=== PATIENT | male | born 1960 | race Caucasian/White ===

== ENCOUNTER 2017-02-28 20:56 | Emergency (ER) | payer SELFPAY ==
[~2017-02-28] VITALS: Ht 170.2 cm; Wt 72.6 kg
[~2017-02-28 20:56] MED LIST: DEPAKOTE ER; DILANTIN; FOLIC ACID; KEPPRA; LEVOTHYROXINE; SULFA; ZONISAMIDE
[2017-02-28] MEDS ORDERED: LIDOCAINE 1% INJ 20 ML (XYLOCAINE) VIAL ONE (21:25)
--- NOTE | 2017-02-28 21:27 | ED EENT ---
History of Present Illness General Chief Complaint: Eye Problems Stated Complaint: PT HAD SEIZURE AND FELL LT EYE INJ Nursing Triage Note: PT BROUGHT TO ROOM BY WHEELCHAIR. GIRLFRIEND STATES THAT [place] AND HAS A SEIZURE AND FELL AND HIT HIS LEFT EYE ON HIS GLASSES. PT DOESN'T COMPLAIN OF ANY PAIN AT THIS TIME. Source: patient Exam Limitations: no limitations History of Present Illness Time seen by provider: 21:25 Initial Comments To ER with laceration to left upper eyebrow after a fall at home secondary to seizure. He was wearing a helmet at the time but his glasses cut the upper eyelid. Tetanus is up-to-date. No loss consciousness. Timing/Duration: abrupt Severity: moderate Location: eye (L) Associated Symptoms: denies symptoms Allergies and Home Medications Allergies Coded Allergies: No Known Drug Allergies (Unverified Allergy, Mild, 07/26/09) Home Medications [Depakote Er] , (Reported) [Dilantin] , (Reported) [Folic Acid] , (Reported) [Keppra] , (Reported) [Levothyroxine] , (Reported) [Zonisamide] , (Reported) Review of Systems Constitutional: see HPI Eyes: No Symptoms Reported Ears: No Symptoms Reported Nose: no symptoms reported Mouth: no symptoms reported Throat: no symptoms reported Respiratory: no symptoms reported Cardiovascular: no symptoms reported Musculoskeletal: no symptoms reported Skin: no symptoms reported Neurological: No Symptoms Reported Past Qbmwbdx-Zpgvtv-Aqmtte Hx Patient Social History Alcohol Use: Denies Use Recreational Drug Use: No Smoking Status: Never a Smoker 2nd Hand Smoke Exposure: No Recent Foreign Travel: No Contact w/Someone Who Travel: No Recent Infectious Disease Expo: No Recent Hopitalizations: No Immunizations Up To Date Tetanus Booster (TDap): Unknown Seasonal Allergies Seasonal Allergies: No Surgeries HX Surgeries: Yes ("COLOSTOMY" ) Respiratory Hx Respiratory Disorders: No Neurological Hx Neurological Disorders: Yes Neurological Disorders: Paralysis, Seizure Disorder Genitourinary Hx Genitourinary Disorders: No Gastrointestinal Hx Gastrointestinal Disorders: Yes (HAS COLOSTOMY) Musculoskeletal Hx Musculoskeletal Disorders: No Endocrine Hx Endocrine Disorders: No Endocrine Disorders: Hypothyroidsim HEENT HX ENT Disorders: No Cancer Hx Cancer: No Psychosocial Hx Psychiatric Problems: No Blood Transfusions Hx Blood Disorders: No Physical Exam Vital Signs Vital Sign - Last 12Hours 02/28/17 21:10 Temp 97.2 Pulse 78 Resp 18 B/P (MAP) 124/87 Pulse Ox 96 O2 Delivery Room Air General Appearance: WD/WN, no apparent distress Eyes: left eye other (1 semi-laceration to the lateral aspect of left upper eyelid. This will need sutured. There is no injury to the conjunctival surface of the eyelid. No subconjunctival hemorrhage or injury to the globe.), bilateral eye EOMI, bilateral eye PERRL Ears: bilateral ear TM normal, bilateral ear auricle normal, bilateral ear canal normal Mouth/Throat: normal mouth inspection, pharynx normal Neck: non-tender, full range of motion Respiratory: no respiratory distress, no accessory muscle use Neurologic/Psychiatric: alert, normal mood/affect, oriented x 3 Skin: normal color, warm/dry Laceration Repair : Wound Location: Face Wound Length (cm): 1 Wound's Depth, Shape: sub Q Wound Explored: clean Anesthesia: 1% Lidocaine Suture: Prolene Suture Size: 5-0 Number of Sutures: 4 Layer Closure?: 1 Number Deep Layer Sutures: 0 Progress Wound scrubbed with chlorhexidine/saline solution. Wound then anesthetized with 1.5 mL of 1 percent lidocaine without epinephrine. Wound then closed with 4 simple interrupted sutures size 5-0 Prolene. Progress/Results/Core Measures Results/Orders My Orders Orders - JOELLE MARTIN APRN Lidocaine 2% Pf 20 Ml (Xylocaine 2% Pf) (02/28/17 21:30) Lidocaine 1% Injection (Xylocaine 1% Inj (02/28/17 21:25) Vital Signs/I&O Vital Sign - Last 12Hours 02/28/17 21:10 Temp 97.2 Pulse 78 Resp 18 B/P (MAP) 124/87 Pulse Ox 96 O2 Delivery Room Air Blood Pressure Mean: 99 Departure Impression Impression: Primary Impression: Eyebrow laceration Disposition: 01 HOME, SELF-CARE Condition: Stable Departure-Patient Inst. Decision time for Depature: 21:27 Referrals: SHLOMO CESPEDES DO (PCP/Family) Primary Care Physician Patient Instructions: Laceration Repair With Stitches (DC) Add. Discharge Instructions: 1. Return to the emergency room to have the stitches removed in 5 days 2. Return to ER for any severe headache, loss consciousness or other concerns 3. Continue current seizure medications. All discharge instructions reviewed with patient and/or family. Voiced understanding. JOELLE MARTIN RESTAURANT HOSTESS Feb 28, 2017 21:27
[2017-02-28] MEDS ORDERED: LIDOCAINE PF 2% 20 ML (XYLOCAINE) AMP INJ ONE (21:30)
[2017-02-28 22:00] VITALS: BP 124/87
== END 2017-02-28 22:00 | disposition home or self-care (01) ==
LOC: EDUNIT# 20:56 → ER 20:58
DX: S01.112A Laceration without foreign body of left eyelid and periocular area, initial encounter (principal); G40.909 Epilepsy, unspecified, not intractable, without status epilepticus; E03.9 Hypothyroidism, unspecified; W05.0XXA Fall from non-moving wheelchair, initial encounter; Y92.830 Public park as the place of occurrence of the external cause; Y99.8 Other external cause status

== ENCOUNTER 2017-03-05 17:22 | Emergency (ER) | payer OTHER ==
[~2017-03-05] VITALS: Ht 170.2 cm; Wt 68.0 kg
[2017-03-05 17:32] VITALS: BP 110/78
== END 2017-03-05 17:43 | disposition home or self-care (01) ==
LOC: EDUNIT# 17:22 → ER 17:23
DX: S01.112D Laceration without foreign body of left eyelid and periocular area, subsequent encounter (principal); X58.XXXD Exposure to other specified factors, subsequent encounter

== ENCOUNTER → 2017-12-05 | Outpatient (CLI) | payer MEDICARE, OTHER ==
--- NOTE | 2017-12-05 18:18 | Diagnostic Imaging Report ---
INDICATION: Lateral swelling, bruising, pain. FINDINGS: There is no fracture, dislocation or acute-appearing articular incongruity. No soft tissue gas. No opaque foreign body. IMPRESSION: No acute-appearing abnormality. Dictated by: Dictated on workstation # [id number]
--- NOTE | 2017-12-05 18:21 | Diagnostic Imaging Report ---
EXAMINATION: Three views of the left foot. INDICATION: Lateral foot swelling. Toe bruising. FINDINGS: There is diffuse soft tissue swelling demonstrated about the foot predominantly involving the dorsal aspect of the foot. There is no evidence of malalignment. There is no evidence of an acute fracture. No aggressive bone destruction demonstrated. The joint spaces appear unremarkable. IMPRESSION: 1. Advanced soft tissue edema and soft tissue swelling about the dorsum of the foot without evidence of a suspicious bone lesion, dislocation, or fracture. Dictated by: Dictated on workstation # [id number]
== END ==
LOC: RAD 17:36
PROVIDERS: ATTEND Nurse Practitioner Family
DX: S90.122A Contusion of left lesser toe(s) without damage to nail, initial encounter (principal); S90.121A Contusion of right lesser toe(s) without damage to nail, initial encounter
CPT/HCPCS: 73630

== ENCOUNTER → 2018-10-29 | Emergency (ER) | payer MEDICARE ==
[~2018-10-29] VITALS: Ht 180.3 cm; Wt 83.9 kg
[~2018-10-29] MED LIST changes: +CEPH-507 PO; +LIDOCAINE 1% INJ 20 ML 20 ML VIAL INJ ONE; +LIDOCAINE 1% INJ 20 ML 20 ML VIAL ONE; +TETANUS,DIPTH,PERTUSS P/F (BOOSTRIX) 0.5 ML VIAL IM ONE
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
[2018-10-29 15:43] VITALS: BP 134/98
--- OUTSIDE RECORDS SUMMARY | 2018-10-29 15:53 | XMS REPORT | Continuity of Care Document ---
Author Author [facility] Organization [facility] Address Unknown Phone Unavailable Care Team Providers Care Safety Teacher Name Role Phone SHLOMO CESPEDES DO PP Insurance Providers Payer Name Policy Number Subscriber Name Relationship [employer] [id number] Albaro Parsons 01 Self / Same As Patient Work Comp [id number] Albaro Parsons Self / Same As Patient Advance Directives Directive Response Recorded Date Advance Directives N 03/21/13 12:32pm Health Care Power of Net Developer Programmer N 03/21/13 12:32pm Organ Donor N 03/21/13 12:32pm Problems No Known Problems or Medical conditions. Social History History Response Recorded Date/Time Alcohol Use Denies Use 03/21/13 12:32pm Recreational Drug Use N 03/21/13 12:32pm Allergies, Adverse Reactions, Alerts Allergen Type Severity Reaction Last Updated No Known Drug Allergies Allergy Mild 07/26/09 Medications Medication Dose Units Route Sig Qty Days [Levothyroxine] [Folic Acid] [Zonisamide] [Keppra] [Depakote Er] [Dilantin] [Sulfa] Response Recorded Date/Time Status not known Unknown Results No Known Relevant Diagnostic Tests, Laboratory Data and/or Discharge Summary. Procedures Procedure Code Date COLONOSCOPY AND BIOPSY 58369 10/03/05 Encounters Encounter Location Date/Time Departed Emergency Room [facility] 12:02pm Registered Emergency Room [facility] 07/19/09 2:36pm
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
--- NOTE | 2018-10-29 17:11 | Diagnostic Imaging Report ---
PROCEDURE: CT head and maxillofacial without contrast. TECHNIQUE: Multiple contiguous axial images were obtained through the head and facial bones without the use of intravenous contrast. Auto Exposure Controls were utilized during the CT exam to meet ALARA standards for radiation dose reduction. INDICATION: Fall, head injury, laceration above the left eye. COMPARISON: 07/19/2009 FINDINGS: CT HEAD: The ventricles and cortical sulci are mildly prominent, likely due to generalized parenchymal volume loss. There is encephalomalacia in the left temporal and frontal lobes which appear stable since 2008, with associated ex vacuo dilatation of the left ventricle. No significant midline shift is seen. No acute intracranial hemorrhage is seen. There is no CT evidence of acute territorial ischemia. The calvarium appears intact. Postcraniotomy changes are noted. CT FACE: The pterygoid plates are intact. The mandible is intact. The zygomatic arches are intact. There is no fluid in the maxillary sinuses. The paranasal sinuses are clear throughout. The globes are intact. No post septal edema is seen. There is mild soft tissue edema and a laceration in the left supraorbital region. There is mild irregularity at the anterior aspect of the nasal bones, which appears to be chronic, although there is overlying soft tissue edema. No radiopaque foreign body is seen. IMPRESSION: 1. No acute intracranial hemorrhage or calvarium fracture. 2. Mild soft tissue edema and laceration in the left supraorbital region. 3. Mild irregularity at the anterior nasal bones, thought to be from remote trauma. No definitively acute facial fractures are seen. Dictated by: Dictated on workstation # [id number]
== END | disposition home or self-care (01) ==
LOC: EDUNIT# 15:31 → ER 15:32
DX: S01.81XA Laceration without foreign body of other part of head, initial encounter (principal); G40.909 Epilepsy, unspecified, not intractable, without status epilepticus; E03.9 Hypothyroidism, unspecified; R40.2142 Coma scale, eyes open, spontaneous, at arrival to emergency department; R40.2252 Coma scale, best verbal response, oriented, at arrival to emergency department; R40.2362 Coma scale, best motor response, obeys commands, at arrival to emergency department; W01.198A Fall on same level from slipping, tripping and stumbling with subsequent striking against other object, initial encounter
CPT/HCPCS: 70450; 70486; 90471; 90715; 99282

== ENCOUNTER 2020-06-25 21:26 | Emergency (ER) | payer MEDICARE ==
[~2020-06-25] VITALS: Ht 177.8 cm; Wt 74.9 kg
[~2020-06-25 21:26] MED LIST changes: -LIDOCAINE 1% INJ 20 ML 20 ML VIAL INJ ONE; -LIDOCAINE 1% INJ 20 ML 20 ML VIAL ONE; -TETANUS,DIPTH,PERTUSS P/F (BOOSTRIX) 0.5 ML VIAL IM ONE
[2020-06-25] MEDS ORDERED: LACTATED RINGERS 1,000 ML IV ONE (22:20)
[2020-06-25] MEDS ORDERED: ACETAMINOPHEN 500 MG TAB (TYLENOL) PO ONE (22:30)
[2020-06-25 22:35] LABS: EOSINOPHILS % (AUTO) 0 % (0-10); HEMATOCRIT 50 % (40-54); MEAN CORPUSCULAR VOLUME 91 fL (80-99); MONOCYTES # (AUTO) 0.9 10^3/uL (0.0-1.0)
[2020-06-25 22:37] LABS: BASOPHILS % (AUTO) 0 % (0-10); HEMOGLOBIN 17.6 g/dL (13.3-17.7); LYMPHOCYTES # (AUTO) 1.4 10^3/uL (1.0-4.0); LYMPHOCYTES % (AUTO) 15 % (12-44); MEAN CORPUSCULAR HEMOGLOBIN 32 pg (25-34); MEAN CORPUSCULAR HGB CONC 35 g/dL (32-36); MEAN PLATELET VOLUME 9.6 fL (9.0-12.2); MONOCYTES % (AUTO) 10 % (0-12); NEUTROPHILS # (AUTO) 6.8 10^3/uL (1.8-7.8); NEUTROPHILS % (AUTO) 74 % (42-75); PLATELET COUNT 120 10^3/uL (130-400); WHITE BLOOD COUNT 9.1 10^3/uL (4.3-11.0)
[2020-06-25 22:43] LABS: ALBUMIN 4.2 GM/DL (3.2-4.5); POTASSIUM 3.8 MMOL/L (3.6-5.0)
[2020-06-25 22:45] LABS: CALCIUM 8.9 MG/DL (8.5-10.1)
[2020-06-25 22:46] LABS: TOTAL PROTEIN 8.1 GM/DL (6.4-8.2)
[2020-06-25 22:48] LABS: BILIRUBIN,TOTAL 0.6 MG/DL (0.1-1.0)
[2020-06-25 22:49] LABS: CREATININE SERUM 1.27 MG/DL (0.60-1.30)
[2020-06-25 22:52] LABS: FIBRIN DEGRADATION PRODUCTS 1.73 UG/ML (0.00-0.49); PROTHROMBIN TIME PATIENT 13.2 SEC (12.2-14.7)
[2020-06-26] MEDS ORDERED: NS 100 ML (IVPB) BAG IV ONE
[2020-06-26] MEDS ORDERED: IOHEXOL 350 MG/ML 100 ML (OMNIPAQUE 350) VIAL IV ONE
[2020-06-26] MEDS ORDERED: HOLD METFORMIN - RECEIVED CONTRAST 20 ML VIAL IV SCH
[2020-06-26] MEDS ORDERED: AZITHROMYCIN 250 MG TAB (ZITHROMAX) PO ONE (02:15)
[2020-06-26] MEDS ORDERED: cefTRIAXone FOR IV USE 1,000 MG in WATER (STERILE) FOR INJECTION 10 ML IV ONE (02:15)
[2020-06-26] MEDS ORDERED: AZIT250T12 PO (02:15)
--- NOTE | 2020-06-26 02:15 | ED General ---
General Chief Complaint: Fever-Adult/Adol Stated Complaint: COUGH/FEVER/SOA Nursing Triage Note: PT TO ROOM 07 VIA W/C WITH C/O FEVER AND SOA. Nursing Sepsis Screen: Possible Severe Sepsis Risk Source of Information: Patient, Caregiver Exam Limitations: No Limitations History of Present Illness Date Seen by Provider: Jun 26, 2020 Time Seen by Provider: 22:05 Initial Comments This 60-year-old gentleman with special needs and intellectual disability presents to the emergency room with complaints of fever and shortness of breath. He denies any vomiting or diarrhea. He is alert and oriented. He is tachycardic but oxygen saturations are in the upper 90s on room air. He is happy and joking with staff. Fever started just today. He was brought to the emergency room by his care provider. He lives with his parents and has a employed caregiver. Allergies and Home Medications Allergies Coded Allergies: No Known Drug Allergies (Unverified , 07/26/09) Home Medications Azithromycin 250 Mg Tablet, 250 MG PO DAILY Prescribed by: LOAN CAMILO on 06/26/20 0215 Cephalexin 500 Mg Capsule, 500 MG PO TID Prescribed by: JOELLE MARTIN on 10/29/18 1714 Patient Home Medication List Home Medication List Reviewed: Yes Review of Systems Review of Systems Constitutional: see HPI EENTM: no symptoms reported Respiratory: see HPI Cardiovascular: see HPI Gastrointestinal: no symptoms reported Genitourinary: no symptoms reported Musculoskeletal: no symptoms reported Skin: no symptoms reported Psychiatric/Neurological: No Symptoms Reported Hematologic/Lymphatic: No Symptoms Reported Immunological/Allergic: no symptoms reported Past Azkjuvu-Dgfgcl-Ritzqi Hx Past Med/Social Hx: Reviewed Nursing Past Med/Soc Hx Patient Social History Alcohol Use: Denies Use Recreational Drug Use: No Smoking Status: Never a Smoker 2nd Hand Smoke Exposure: No Recent Foreign Travel: No Contact w/Someone Who Travel: No Recent Infectious Disease Expo: No Recent Hopitalizations: No Physical Abuse: No Sexual Abuse: No Mistreated: No Fear: No Immunizations Up To Date Tetanus Booster (TDap): Unknown Seasonal Allergies Seasonal Allergies: No Past Medical History Surgeries: Yes (OSTOMY BAG PLACED 2011) Respiratory: No Cardiac: No Neurological: Yes (Intellectual disability) Paralysis, Seizure Disorder Genitourinary: No Gastrointestinal: Yes (HAS OSTOMY BAG) Musculoskeletal: No Endocrine: Yes Hypothyroidsim HEENT: No Cancer: No Psychosocial: No Integumentary: No Blood Disorders: No Physical Exam-Suspected Sepsis Physical Exam Vital Signs Vital Signs - First Documented 06/25/20 06/26/20 21:52 02:45 Temp 39.3 Pulse 116 Resp 19 B/P (MAP) 98/75 (83) Pulse Ox 97 O2 Delivery Room Air Capillary Refill : Less Than 3 Seconds Blood Pressure Mean: 83 Height, Weight, BMI Height: 5'11.00" Weight: 185lbs. oz. 83.979643qt; 23.00 BMI Method:Estimated General Appearance: No Apparent Distress, WD/WN HEENT: PERRL/EOMI, Normal ENT Inspection, Pharynx Normal Neck: Normal Inspection Respiratory: Lungs Clear, Normal Breath Sounds, No Accessory Muscle Use Cardiovascular: No Edema, No Murmur, Tachycardia Gastrointestinal: Normal Bowel Sounds, Non Tender, Soft Extremity: Normal Inspection, Non Tender, No Pedal Edema Neurologic/Psychiatric: Alert, Oriented x3, No Motor/Sensory Deficits, Normal Mood/Affect, manager local II-XII Norm as Tested Skin: normal color, warm/dry Focused Exam Lactate Level 06/25/20 22:00: Lactic Acid Level 1.81 Procedures/Interventions Suture Size: 5-0 Progress/Results/Core Measures Suspected Sepsis Recent Fever Within 48 Hours: Yes Infection Criteria Present: Suspected New Infection New/Unexplained Altered Menta: No Sepsis Screen: Possible Severe Sepsis Risk SIRS Temperature: Pulse: 116 Respiratory Rate: 19 Laboratory Tests 06/25/20 22:00: White Blood Count 9.1 Blood Pressure 98 /75 Mean: 83 06/25/20 22:00: Lactic Acid Level 1.81 Laboratory Tests 06/25/20 22:00: Creatinine 1.27, INR Comment 1.0, Platelet Count 120L, Total Bilirubin 0.6 Results/Orders Lab Results Laboratory Tests Test 06/25/20 22:00 06/25/20 22:20 Range/Units White Blood Count 9.1 4.3-11.0 10^3/uL Red Blood Count 5.52 4.30-5.52 10^6/uL Hemoglobin 17.6 13.3-17.7 g/dL Hematocrit 50 40-54 % Mean Corpuscular Volume 91 80-99 fL Mean Corpuscular Hemoglobin 32 25-34 pg Mean Corpuscular Hemoglobin Concent 35 32-36 g/dL Red Cell Distribution Width 11.1 10.0-14.5 % Platelet Count 120 L 130-400 10^3/uL Mean Platelet Volume 9.6 9.0-12.2 fL Immature Granulocyte % (Auto) 0 % Neutrophils (%) (Auto) 74 42-75 % Lymphocytes (%) (Auto) 15 12-44 % Monocytes (%) (Auto) 10 0-12 % Eosinophils (%) (Auto) 0 0-10 % Basophils (%) (Auto) 0 0-10 % Neutrophils # (Auto) 6.8 1.8-7.8 10^3/uL Lymphocytes # (Auto) 1.4 1.0-4.0 10^3/uL Monocytes # (Auto) 0.9 0.0-1.0 10^3/uL Eosinophils # (Auto) 0.0 0.0-0.3 10^3/uL Basophils # (Auto) 0.0 0.0-0.1 10^3/uL Immature Granulocyte # (Auto) 0.0 0.0-0.1 10^3/uL Prothrombin Time 13.2 12.2-14.7 SEC INR Comment 1.0 0.8-1.4 Activated Partial Thromboplast Time 32 24-35 SEC D-Dimer 1.73 H 0.00-0.49 UG/ML Sodium Level 143 135-145 MMOL/L Potassium Level 3.8 3.6-5.0 MMOL/L Chloride Level 105 98-107 MMOL/L Carbon Dioxide Level 23 21-32 MMOL/L Anion Gap 15 H 5-14 MMOL/L Blood Urea Nitrogen 20 H 7-18 MG/DL Creatinine 1.27 0.60-1.30 MG/DL Estimat Glomerular Filtration Rate 58 BUN/Creatinine Ratio 16 Glucose Level 98 70-105 MG/DL Lactic Acid Level 1.81 0.50-2.00 MMOL/L Calcium Level 8.9 8.5-10.1 MG/DL Corrected Calcium 8.7 8.5-10.1 MG/DL Total Bilirubin 0.6 0.1-1.0 MG/DL Aspartate Amino Transf (AST/SGOT) 42 H 5-34 U/L Alanine Aminotransferase (ALT/SGPT) 40 0-55 U/L Alkaline Phosphatase 114 40-136 U/L Lactate Dehydrogenase 272 H 125-220 U/L C-Reactive Protein High Sensitivity 15.31 H 0.00-0.50 MG/DL Total Protein 8.1 6.4-8.2 GM/DL Albumin 4.2 3.2-4.5 GM/DL Procalcitonin 0.07 <0.10 NG/ML Coronavirus 2019 (NII) Positive H Negative Micro Results Microbiology 06/25/20 Influenza Types A,B Antigen (JERZY) - Final, Complete My Orders Orders - LOAN HUA MD Ed Iv/Invasive Line Start (06/25/20 22:20) Lactated Ringers (Lr 1000 Ml Iv Solution (06/25/20 22:20) Acetaminophen Tablet (Tylenol Tablet) (06/25/20 22:30) Cbc With Automated Diff (06/25/20 22:22) Comprehensive Metabolic Panel (06/25/20 22:22) Blood Culture (06/25/20 22:22) Protime With Inr (06/25/20 22:22) Partial Thromboplastin Time (06/25/20 22:22) Chest 1 View, Ap/Pa Only (06/25/20 22:22) Ed Iv/Invasive Line Start (06/25/20 22:22) Vital Signs Adult Sepsis Patie Q15M (06/25/20 22:22) O2 (06/25/20 22:22) Remove Rings In Anticipation O (06/25/20 22:22) Lactic Acid Analyzer (06/25/20 22:22) Influenza A And B Antigens (06/25/20 22:22) Fibrin Degradation Products (06/25/20 22:22) Procalcitonin (Pct) (06/25/20 22:22) Hs C Reactive Protein (06/25/20 22:22) LDH (06/25/20 22:22) Covid 19 Inhouse Test (06/25/20 22:22) Iohexol Injection (Omnipaque 350 Mg/Ml 1 (06/26/20 00:00) Received Contrast (Hold Metformin- Contr (06/26/20 00:00) Ns (Ivpb) (Sodium Chloride 0.9% Ivpb Bag (06/26/20 00:00) Ct Angio Chest W (06/26/20 00:01) Ceftriaxone For Iv Use (Rocephin For I (06/26/20 02:15) Azithromycin Tablet (Zithromax Tablet) (06/26/20 02:15) Medications Given in ED Current Medications Medications Dose Ordered Sig/José Route Start Time Stop Time Status Last Admin Dose Admin Acetaminophen 1,000 mg ONCE ONCE PO 06/25/20 22:30 06/25/20 22:31 DC 06/25/20 22:25 1,000 MG Azithromycin 500 mg ONCE ONCE PO 06/26/20 02:15 06/26/20 02:16 DC 06/26/20 02:19 500 MG Ceftriaxone Sodium 1000 mg/ Sterile Water 10 ml @ 200 mls/hr ONCE ONCE IV 06/26/20 02:15 06/26/20 02:17 DC 06/26/20 02:19 200 MLS/HR Lactated Ringer's 1,000 ml @ 0 mls/hr Q0M ONCE IV 06/25/20 22:20 06/25/20 22:21 DC 06/25/20 22:24 999 MLS/HR Vital Signs/I&O 06/25/20 06/25/20 06/26/20 21:52 22:25 02:45 Temp 39.3 39.8 Pulse 116 76 Resp 19 17 B/P (MAP) 98/75 (83) 132/77 Pulse Ox 97 O2 Delivery Room Air Room Air 06/26/20 00:00 Intake Total 1000 ml Balance 1000 ml Capillary Refill : Less Than 3 Seconds Blood Pressure Mean: 83 Progress Note : Progress Note COVID-19 screen was positive. Influenza was negative. He received a liter of IV fluid and Tylenol. Oxygen saturations stayed in the upper 90s on room air. Patient was not in respiratory distress. Due to the patchy areas of infiltrate that could be related to superimposed pneumonia, Rocephin and azithromycin were administered. I discussed the situation with his care provider. Patient does not meet inpatient criteria. She will manage his care at home. Diagnostic Imaging Diagonstic Imaging: Xray Plain Films/CT/US/NM/MRI: chest Comments Chest x-ray viewed by me. Report not yet available. No acute abnormality appreciated. Diagonstic Imaging: CT Plain Films/CT/US/NM/MRI: chest Comments [facility] report reviewed. No pulmonary emboli noted. Patchy areas of infiltrate noted. Incidental findings such as hernia and cholelithiasis noted. Departure Impression Primary Impression: COVID-19 Additional Impression: Pneumonia Qualified Codes: J18.9 - Pneumonia, unspecified organism Disposition: 01 HOME, SELF-CARE Condition: Stable Departure-Patient Inst. Decision time for Depature: 02:13 Referrals: SHLOMO CESPEDES DO (PCP/Family) Primary Care Physician Patient Instructions: Coronavirus Disease 2019 (COVID-19) (DC), Pneumonia, Adult (DC) Add. Discharge Instructions: Remain in quarantine until released by the health department. Isolate from other household members who have not had or recovered from COVID-19. Encourage plenty of clear liquids. Tylenol and ibuprofen may be used for pain and fever. Complete antibiotics as prescribed. It is difficult to determine from the chest imaging if there is Covid alone or if pneumonia also exists. Therefore it is important to complete the antibiotics. Call or return to care if you have worsening symptoms or other concerns. All discharge instructions reviewed with patient and/or family. Voiced understanding. Scripts Azithromycin (Azithromycin) 250 Mg Tablet 250 MG PO DAILY, #4 TAB 0 Refills Prov: LOAN HUA MD 06/26/20 Copy Copies To 1: SHLOMO CESPEDES JOSHUA T MD Jun 26, 2020 02:15
[2020-06-26 02:45] VITALS: BP 132/77
--- NOTE | 2020-06-26 06:43 | Diagnostic Imaging Report ---
PROCEDURE: CT angiography of the chest with contrast. TECHNIQUE: Multiple contiguous axial images were obtained through the chest after uneventful bolus administration of intravenous contrast. 3D reconstructed CTA MIP acquisitions were also performed. Auto Exposure Controls were utilized during the CT exam to meet ALARA standards for radiation dose reduction. INDICATION: Sepsis. Shortness of breath. COVID positive. COMPARISON: Chest radiograph, 06/25/2020. FINDINGS: No pulmonary emboli. No thoracic aortic aneurysm or dissection. Normal heart size. No pericardial effusion. Prominent mediastinal lymph nodes measuring up to 1.0 cm. Moderate multifocal airspace opacities in the left lung. No pleural effusion or pneumothorax. No acute osseous findings. Anterior wedging of the T4 and T5 vertebral bodies appears chronic. Cholelithiasis. Partially visualized right anterior abdominal wall hernia containing loops of small bowel. IMPRESSION: 1. No pulmonary emboli. 2. Multifocal airspace opacities in the left lung compatible with reported COVID diagnosis. Borderline mediastinal lymphadenopathy is likely reactive. 3. Cholelithiasis. 4. Partially visualized right anterior abdominal wall hernia containing loops of small bowel. Dictated by: Dictated on workstation # [id number]
--- NOTE | 2020-06-26 07:28 | Diagnostic Imaging Report ---
INDICATION: Sepsis. COMPARISON: No prior examinations are available for comparison. FINDINGS: The heart size, mediastinal configuration, and pulmonary vascularity are within normal limits. There is no pleural effusion, pneumothorax, or pneumonia. The osseous structures are unremarkable. IMPRESSION: No acute cardiopulmonary abnormality. Dictated by: Dictated on workstation # [id number]
== END 2020-06-26 02:45 | disposition home or self-care (01) ==
LOC: EDUNIT# 21:26 → ER 21:29
DX: U07.1 COVID-19 (principal); J18.9 Pneumonia, unspecified organism
CPT/HCPCS: 71045; 71275; 80053; 83605; 83615; 84145; 85025; 85379; 85610; 85730; 86141; 87040; 87804; 99284; U0002; 36415; 87635

== ENCOUNTER 2020-06-27 17:50 | Inpatient (IN) | payer MEDICARE ==
[~2020-06-27] VITALS: Ht 170 cm; Wt 89.0 kg
[~2020-06-27 17:50] MED LIST changes: +AZIT250T12 PO
[2020-06-27] MEDS ORDERED: LACTATED RINGERS 1,000 ML IV ONE ×2 (18:41→22:49)
[2020-06-27] MEDS ORDERED: ACETAMINOPHEN 500 MG TAB (TYLENOL) ONE (18:45)
[2020-06-27 18:54] LABS: BASOPHILS % (AUTO) 0 % (0-10); EOSINOPHILS % (AUTO) 0 % (0-10); HEMOGLOBIN 17.1 g/dL (13.3-17.7)
[2020-06-27 18:56] LABS: HEMATOCRIT 48 % (40-54); LYMPHOCYTES # (AUTO) 0.9 10^3/uL (1.0-4.0); LYMPHOCYTES % (AUTO) 10 % (12-44); MEAN CORPUSCULAR HEMOGLOBIN 32 pg (25-34); MEAN CORPUSCULAR HGB CONC 36 g/dL (32-36); MEAN CORPUSCULAR VOLUME 89 fL (80-99); MEAN PLATELET VOLUME 9.5 fL (9.0-12.2); MONOCYTES # (AUTO) 1.2 10^3/uL (0.0-1.0); MONOCYTES % (AUTO) 13 % (0-12); NEUTROPHILS # (AUTO) 6.7 10^3/uL (1.8-7.8); NEUTROPHILS % (AUTO) 76 % (42-75); PLATELET COUNT 147 10^3/uL (130-400); WHITE BLOOD COUNT 8.9 10^3/uL (4.3-11.0)
[2020-06-27] MEDS ORDERED: ACETAMINOPHEN 500 MG TAB (TYLENOL) PO ONE (19:00)
[2020-06-27 19:03] LABS: ALBUMIN 4.1 GM/DL (3.2-4.5); POTASSIUM 4.3 MMOL/L (3.6-5.0)
[2020-06-27 19:04] LABS: CALCIUM 8.9 MG/DL (8.5-10.1)
[2020-06-27 19:07] LABS: BILIRUBIN,TOTAL 0.6 MG/DL (0.1-1.0)
[2020-06-27 19:09] LABS: CREATININE SERUM 1.29 MG/DL (0.60-1.30)
--- NOTE | 2020-06-27 19:13 | ED General ---
General Chief Complaint: Respiratory Problems Stated Complaint: SOB, CONFUSION,COVID19+,PNA Nursing Triage Note: Assisted pt via ED w/c from POV with c/o altered mental status et resp. distress. Caregiver noted to be hysterical stating, "he ripped off his clothes et hasn't made any sense!" Pt seen in this ER on 06/25/20 et noted to be COVID-19 +. Initial SPO2 84% via RA with labored audible breath sounds. 15L oxymask applied. Initial axillary temp 103.8. Pt alert to self et situation. Nursing Sepsis Screen: Possible Severe Sepsis Risk Source of Information: Patient, Family, Old Records Exam Limitations: No Limitations History of Present Illness Date Seen by Provider: Jun 27, 2020 Time Seen by Provider: 18:01 Initial Comments This 60-year-old gentleman with special needs including intellectual disability and seizure disorder is brought to the emergency room by his caregiver with worsening symptoms of COVID-19. He was seen on the when he was diagnosed. He was stable at that time. He was started on antibiotics for possible pneumonia coinfection based on x-ray findings. Today his caregiver is hysterical stating he has become very confused, ripping off his clothes, and not making any sense. He was found to be hypoxic with an oxygen saturation of 84% on room air. His caregiver is Dina, his neighbor. Her phone number is [phone]. He has elderly parents who are his legal guardians. His father is Hero Parsons, and his phone number is [phone]. I have not been able to speak with the caregiver directly but I did speak with his father. Patient is alert and seems near his cognitive baseline based on my interaction with him 2 days ago. He does appear a little short of breath. He is febrile at present with a temperature of 103.8. I discussed CODE STATUS with his father. He is agreeable to a short time on a ventilator but requests no cardiac code. Allergies and Home Medications Allergies Coded Allergies: No Known Drug Allergies (Unverified , 07/26/09) Home Medications Azithromycin 250 Mg Tablet, 250 MG PO DAILY Prescribed by: LOAN CAMILO on 06/26/20 0215 Cephalexin 500 Mg Capsule, 500 MG PO TID Prescribed by: JOELLE MARTIN on 10/29/18 4332 Patient Home Medication List Home Medication List Reviewed: Yes Review of Systems Review of Systems Constitutional: see HPI EENTM: no symptoms reported Respiratory: see HPI Cardiovascular: no symptoms reported Gastrointestinal: no symptoms reported Musculoskeletal: no symptoms reported Skin: no symptoms reported Psychiatric/Neurological: See HPI Hematologic/Lymphatic: No Symptoms Reported Immunological/Allergic: no symptoms reported Past Mdilysg-Wnllzw-Kxqqrl Hx Past Med/Social Hx: Reviewed Nursing Past Med/Soc Hx Patient Social History Alcohol Use: Denies Use Recreational Drug Use: No Smoking Status: Never a Smoker 2nd Hand Smoke Exposure: No Recent Foreign Travel: No Contact w/Someone Who Travel: No Recent Infectious Disease Expo: No Recent Hopitalizations: No Physical Abuse: No Sexual Abuse: No Immunizations Up To Date Tetanus Booster (TDap): Unknown Seasonal Allergies Seasonal Allergies: No Past Medical History Surgeries: Yes (OSTOMY BAG PLACED 2011) Bowel Surgery Respiratory: No Cardiac: No Neurological: Yes (Intellectual disability) Paralysis, Seizure Disorder Genitourinary: No Gastrointestinal: Yes (HAS OSTOMY BAG) Musculoskeletal: No Endocrine: Yes Hypothyroidsim HEENT: No Cancer: No Psychosocial: No Integumentary: No Blood Disorders: No Physical Exam-Suspected Sepsis Physical Exam Vital Signs Vital Signs - First Documented 06/27/20 18:20 Temp 39.9 Pulse 125 Resp 35 B/P (MAP) 109/79 (89) Pulse Ox 100 O2 Delivery OxyMask O2 Flow Rate 15.00 Capillary Refill : Less Than 3 Seconds Blood Pressure Mean: 89 Height, Weight, BMI Height: 5'11.00" Weight: 185lbs. oz. 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 He is alert to person and place. He is conversational.) Skin: normal color, warm/dry Focused Exam Lactate Level 06/27/20 18:40: Lactic Acid Level 2.29*H 06/27/20 21:20: Lactic Acid Level 2.33*H 06/27/20 23:15: Lactic Acid Level 1.20 Lactic Acid Level Procedures/Interventions Suture Size: 5-0 Progress/Results/Core Measures Suspected Sepsis Recent Fever Within 48 Hours: Yes Infection Criteria Present: Documented Infection New/Unexplained Altered Menta: Yes Sepsis Screen: Possible Severe Sepsis Risk SIRS Temperature: Pulse: 125 Respiratory Rate: 35 Laboratory Tests 06/27/20 18:40: White Blood Count 8.9 Blood Pressure 109 /79 Mean: 89 06/27/20 18:40: Lactic Acid Level 2.29*H 06/27/20 21:20: Lactic Acid Level 2.33*H 06/27/20 23:15: Lactic Acid Level 1.20 Laboratory Tests 06/27/20 18:40: Creatinine 1.29, INR Comment 1.0, Platelet Count 147, Total Bilirubin 0.6 Results/Orders Lab Results Laboratory Tests Test 06/27/20 18:40 06/27/20 19:10 06/27/20 21:20 06/27/20 23:15 Range/Units White Blood Count 8.9 4.3-11.0 10^3/uL Red Blood Count 5.34 4.30-5.52 10^6/uL Hemoglobin 17.1 13.3-17.7 g/dL Hematocrit 48 40-54 % Mean Corpuscular Volume 89 80-99 fL Mean Corpuscular Hemoglobin 32 25-34 pg Mean Corpuscular Hemoglobin Concent 36 32-36 g/dL Red Cell Distribution Width 10.8 10.0-14.5 % Platelet Count 147 130-400 10^3/uL Mean Platelet Volume 9.5 9.0-12.2 fL Immature Granulocyte % (Auto) 0 % Neutrophils (%) (Auto) 76 H 42-75 % Lymphocytes (%) (Auto) 10 L 12-44 % Monocytes (%) (Auto) 13 H 0-12 % Eosinophils (%) (Auto) 0 0-10 % Basophils (%) (Auto) 0 0-10 % Neutrophils # (Auto) 6.7 1.8-7.8 10^3/uL Lymphocytes # (Auto) 0.9 L 1.0-4.0 10^3/uL Monocytes # (Auto) 1.2 H 0.0-1.0 10^3/uL Eosinophils # (Auto) 0.0 0.0-0.3 10^3/uL Basophils # (Auto) 0.0 0.0-0.1 10^3/uL Immature Granulocyte # (Auto) 0.0 0.0-0.1 10^3/uL Prothrombin Time 14.0 12.2-14.7 SEC INR Comment 1.0 0.8-1.4 Activated Partial Thromboplast Time 35 24-35 SEC Sodium Level 136 135-145 MMOL/L Potassium Level 4.3 3.6-5.0 MMOL/L Chloride Level 101 98-107 MMOL/L Carbon Dioxide Level 21 21-32 MMOL/L Anion Gap 14 5-14 MMOL/L Blood Urea Nitrogen 17 7-18 MG/DL Creatinine 1.29 0.60-1.30 MG/DL Estimat Glomerular Filtration Rate 57 BUN/Creatinine Ratio 13 Glucose Level 112 H 70-105 MG/DL Lactic Acid Level 2.29 *H 2.33 *H 1.20 0.50-2.00 MMOL/L Calcium Level 8.9 8.5-10.1 MG/DL Corrected Calcium 8.8 8.5-10.1 MG/DL Total Bilirubin 0.6 0.1-1.0 MG/DL Aspartate Amino Transf (AST/SGOT) 56 H 5-34 U/L Alanine Aminotransferase (ALT/SGPT) 40 0-55 U/L Alkaline Phosphatase 99 40-136 U/L Lactate Dehydrogenase 338 H 125-220 U/L C-Reactive Protein High Sensitivity 15.16 H 0.00-0.50 MG/DL Total Protein 8.0 6.4-8.2 GM/DL Albumin 4.1 3.2-4.5 GM/DL Procalcitonin 0.71 H <0.10 NG/ML Thyroid Stimulating Hormone (TSH) 1.99 0.35-4.94 UIU/ML Free Thyroxine 0.97 0.70-1.48 NG/DL Valproic Acid (Depakene) Level 71.6 50.0-100.0 UG/ML Urine Color YELLOW Urine Clarity CLEAR Urine pH 6.0 5-9 Urine Specific Sedan 1.020 1.016-1.022 Urine Protein 1+ H NEGATIVE Urine Glucose (UA) NEGATIVE NEGATIVE Urine Ketones 1+ H NEGATIVE Urine Nitrite NEGATIVE NEGATIVE Urine Bilirubin NEGATIVE NEGATIVE Urine Urobilinogen 0.2 < = 1.0 MG/DL Urine Leukocyte Esterase NEGATIVE NEGATIVE Urine RBC (Auto) NEGATIVE NEGATIVE Urine RBC 0-2 /HPF Urine WBC 0-2 /HPF Urine Crystals PRESENT H /LPF Urine Amorphous Sediment FEW REHAN URATES H /LPF Urine Bacteria TRACE /HPF Urine Casts NONE /LPF Urine Mucus LARGE H /LPF Urine Culture Indicated NO My Orders Orders - LOAN HUA MD Cbc With Automated Diff (06/27/20 18:) Comprehensive Metabolic Panel (06/27/20 18:) Blood Culture (06/27/20 18:) Sputum Culture (06/27/20 18:) Urinalysis (06/27/20 18:) Urine Culture (06/27/20 18:) Protime With Inr (06/27/20 18:) Partial Thromboplastin Time (06/27/20 18:01) Chest 1 View, Ap/Pa Only (06/27/20 18:01) Ed Iv/Invasive Line Start (06/27/20 18:01) Ed Iv/Invasive Line Start (06/27/20 18:01) Vital Signs Adult Sepsis Patie Q15M (06/27/20 18:01) O2 (06/27/20 18:01) Remove Rings In Anticipation O (06/27/20 18:01) Lactic Acid Analyzer (06/27/20 18:01) Procalcitonin (Pct) (06/27/20 18:01) Hs C Reactive Protein (06/27/20 18:01) LDH (06/27/20 18:01) Dexamethasone Injection (Decadron Inje (06/27/20 18:45) Lactated Ringers (Lr 1000 Ml Iv Solution (06/27/20 18:41) Thyroid Stimulating Hormone (06/27/20 18:44) Free T4 (Free Thyroxine) (06/27/20 18:44) Valproic Acid (06/27/20 18:44) Acetaminophen Tablet (Tylenol Tablet) (06/27/20 19:00) Acetaminophen Tablet (Tylenol Tablet) (06/27/20 18:45) Ceftriaxone For Iv Use (Rocephin For I (06/27/20 19:30) Medications Given in ED Current Medications Medications Dose Ordered Sig/José Route Start Time Stop Time Status Last Admin Dose Admin Acetaminophen 1,000 mg ONCE ONCE PO 06/27/20 19:00 06/27/20 19:01 DC 06/27/20 18:53 1,000 MG Dexamethasone Sodium Phosphate 6 mg ONCE ONCE IV 06/27/20 18:45 06/27/20 18:46 DC 06/27/20 18:51 6 MG Lactated Ringer's 1,000 ml @ 0 mls/hr Q0M ONCE IV 06/27/20 18:41 06/27/20 18:43 DC 06/27/20 18:51 0 MLS/HR Vital Signs/I&O 06/27/20 06/27/20 06/27/20 06/27/20 18:20 18:20 18:25 21:57 Temp 39.9 38.5 Pulse 125 84 Resp 35 18 B/P (MAP) 109/79 (89) 161/86 Pulse Ox 100 96 94 O2 Delivery OxyMask OxyMask Nasal Cannula O2 Flow Rate 15.00 15.00 2.00 06/27/20 06/27/20 06/27/20 06/27/20 22:30 23:00 23:01 23:05 Temp 36.3 39.9 Pulse 82 86 125 Resp 22 B/P (MAP) 124/70 Pulse Ox 94 96 97 O2 Delivery Nasal Cannula Nasal Cannula O2 Flow Rate 2.00 3.00 2.00 06/27/20 06/28/20 06/28/20 06/28/20 23:24 00:26 01:00 02:36 Temp 36.4 Pulse 86 78 Resp 17 B/P (MAP) 124/70 (88) Pulse Ox 94 96 97 O2 Delivery Nasal Cannula Room Air Nasal Cannula O2 Flow Rate 2.00 2.00 Capillary Refill : Less Than 3 Seconds Blood Pressure Mean: 89 Progress Note #1: Time: 19:10 Progress Note Patient seen and examined. Labs and x-ray are pending. IV fluids, dexamethasone, supplemental oxygen, and Tylenol have been ordered. Because he is hypoxic he will need admission. Progress Note #2: Time: 20:40 Progress Note Vital signs remain stable on nc O2 support and heart rate improved with IV hydration. Although lactic acid is slightly elevated, I do not believe this represents a bacterial induced sepsis. Lactic acid likely reflects hydration status and hypoxia. Also, WBC and procalcitonin are not significantly elevated to suggest bacterial infection. We will continue antibiotics as he was previously started on antibiotics. Dexamethasone 6 mg was administered. Tylenol was given for fever. Case was discussed with Dr. Childs who accepts admission. Plan and admission orders were discussed. I received verbal dosing instructions for his home medications from his father. Those medications were added to the bridging orders based on information provided. Diagnostic Imaging Diagonstic Imaging: Xray Plain Films/CT/US/NM/MRI: chest Comments Chest x-ray viewed by me and report reviewed. Compared with prior. See report below: NAME: JUSTICE PARSONS [facility] REC#: [id number] PT STATUS: REG ER : 1960 PHYSICIAN: LOAN HUA MD ADMIT DATE: 06/27/20/ER Signed Date of Exam:06/27/20 CHEST 1 VIEW, AP/PA ONLY EXAMINATION: Chest 1 view HISTORY: sepsis COMPARISON: Chest radiograph 06/25/2020 FINDINGS: Heart size and pulmonary vasculature are normal. There are increasing patchy airspace opacities within the right lung base. Left-sided metallic device overlying the chest is unchanged. No pleural effusion or pneumothorax. The osseous structures are intact. IMPRESSION: 1. Increasing right basilar airspace opacities which could represent atelectasis or pneumonia in the appropriate clinical setting. Dictated by: Dictated on workstation # [id number] Dict: 06/27/201932 Trans: 06/27/202007 [facility] [id number] Interpreted by: ELODIA ROB DO Electronically signed by: ELODIA ROB DO 06/27/202007 Departure Communication (Admissions) Time/Spoke to Admitting Phy: 20:40 Dr. Childs Impression Primary Impression: COVID-19 Additional Impressions: Hypoxia AMS (altered mental status) Qualified Codes: R41.82 - Altered mental status, unspecified Disposition: ADMITTED INPATIENT Condition: Improved Admissions Decision to Admit Reason: Admit from ER (Trauma) Decision to Admit/Date: Jun 27, 2020 Time/Decision to Admit Time: 18:10 Departure-Patient Inst. Referrals: SHLOMO CESPEDES DO (PCP/Family) Primary Care Physician Copy Copies To 1: SHLOMO CESPEDES JOSHUA T MD Jun 27, 2020 19:12
[2020-06-27 19:18] LABS: VALPROIC ACID 71.6 UG/ML (50.0-100.0)
[2020-06-27 19:20] LABS: BILIRUBIN,URINE NEGATIVE (NEGATIVE); CLARITY,URINE CLEAR; COLOR,URINE YELLOW; GLUCOSE, URINE (UA) NEGATIVE (NEGATIVE); KETONES,URINE 1+ (NEGATIVE); LEUKOCYTE ESTERASE ,URINE NEGATIVE (NEGATIVE); NITRITE,URINE NEGATIVE (NEGATIVE); PROTEIN,URINE 1+ (NEGATIVE)
[2020-06-27] MEDS ORDERED: cefTRIAXone FOR IV USE 1,000 MG in WATER (STERILE) FOR INJECTION 10 ML IV ONE (19:30)
[2020-06-27 19:36] LABS: FREE T4 (FREE THYROXINE) 0.97 NG/DL (0.70-1.48)
--- NOTE | 2020-06-27 19:37 | Diagnostic Imaging Report ---
EXAMINATION: Chest 1 view HISTORY: sepsis COMPARISON: Chest radiograph 06/25/2020 FINDINGS: Heart size and pulmonary vasculature are normal. There are increasing patchy airspace opacities within the right lung base. Left-sided metallic device overlying the chest is unchanged. No pleural effusion or pneumothorax. The osseous structures are intact. IMPRESSION: 1. Increasing right basilar airspace opacities which could represent atelectasis or pneumonia in the appropriate clinical setting. Dictated by: Dictated on workstation # [id number]
[2020-06-27 19:43] LABS: AMORPHOUS SEDIMENT,UR FEW AMOR URATES /LPF; BACTERIA,URINE TRACE /HPF; RBC,URINE 0-2 /HPF; WBC,URINE 0-2 /HPF
--- NOTE | 2020-06-27 21:03 | NUR ---
Report given to LOU Trent to assume care of pt at this time.
--- NOTE | 2020-06-27 22:04 | NUR ---
SPOKE TO PATIENT'S GIRLFRIEND WOLFGANG NICOLA WITH PATIENTS PERMISSION AND UPDATED HER OF PATIENT ADMISSION.
--- NOTE | 2020-06-27 22:16 | NUR ---
WOLFGANG ABDIFATAH GIRLFRIEND CALLED AND WANTED TO KNOW IF SHE NEEDED TO BRING PATIENTS HOME MEDS SINCE THEY ARE LIQUID FOR HIS PEG TUBE. IT WAS RECCOMENDED SHE WAIT UNTIL THE AM TO SEE WHICH MEDS IF ANY PHARMACY MAY NEED FROM HOME.
--- NOTE | 2020-06-27 22:30 | NUR ---
JUSTICE CASTRO admitted to room 423-1, with an admitting diagnosis of COVID/HYPOXIA/AMS, on 06/27/20 from ED via BEDCART, accompanied by STAFF.JUSTICE CASTRO introduced to surroundings, call light, bed controls, phone, TV, temperature control, lights, meal times, smoking policy, visitor policy, side rail policy, bathrooms and showers. Patient Rights given to patient in the handbook. JUSTICE CASTRO verbalizes understanding that [facility] is not responsible for the loss or damage to any personal effects or valuables that are kept in the patients possession during their hospitalization.
[2020-06-27 23:01] VITALS: BP 124/70
[2020-06-27 23:05] VITALS: BP 109/79
[2020-06-27] MEDS ORDERED: ACETAMINOPHEN 500 MG TAB (TYLENOL) PO PRN (23:30)
[2020-06-27] MEDS ORDERED: IBUPROFEN 600 MG (MOTRIN) TAB PO PRN (23:30)
[2020-06-28] VITALS (9 sets, daily range): BP systolic 106–136; BP diastolic 69–91
--- NOTE | 2020-06-28 00:25 | NUR ---
NOTIFIED BY E-PHARMACY THAT CLOBAZAM 10 MG IS NOT STOCKED IN THIS HOSPITAL. DR. ELIAS UPDATED. FAMILY TO BE CONTACTED TO DISCUSS BRINGING PATIENT'S MED FROM HOME IF POSSIBLE. PT TRIGGERING FOR SEPSIS RISK. NO NEW ORDERS AT THIS TIME.
[2020-06-28] MEDS: LACTATED RINGERS 1,000 ML IV SCH ×3 (00:34→11:37)
[2020-06-28] MEDS: cefTRIAXone 1,000 MG/SWFI 10 ML IV PUSH IV SCH ×4 (00:34→21:13)
[2020-06-28] MEDS: RIFAXIMIN 550 MG TABLET (XIFAXAN) PO SCH ×3 (00:35→21:13)
[2020-06-28] MEDS: PHENYTOIN ORAL SUSPENSION 125 MG/5 ML UDC PO SCH ×3 (00:35→21:13)
[2020-06-28] MEDS: AZITHROMYCIN 250 MG TAB (ZITHROMAX) PO SCH ×2 (00:35→21:13)
[2020-06-28] MEDS: VALPROIC ACID SYRUP 250 MG/5 ML UDC PO SCH ×3 (00:35→21:13)
[2020-06-28] MEDS: RT-ALBUTEROL INHALER HFA (VENTOLIN HFA) 18 GM IH SCH ×4 (02:36→19:44)
[2020-06-28] MEDS: LEVOTHYROXINE 50 MCG (LEVOTHROID) TAB PO SCH (05:34)
[2020-06-28] MEDS: ONDANSETRON 4 MG/2 ML (SDV) Z0FRAN IV PRN (05:35)
--- NOTE | 2020-06-28 06:57 | NUR ---
DR. ELIAS NOTIFIED OF DVT SCORE OF 4.
[2020-06-28 07:21] LABS: BASOPHILS % (AUTO) 0 % (0-10); EOSINOPHILS % (AUTO) 0 % (0-10); HEMATOCRIT 43 % (40-54); HEMOGLOBIN 14.7 g/dL (13.3-17.7); LYMPHOCYTES # (AUTO) 2.1 10^3/uL (1.0-4.0); LYMPHOCYTES % (AUTO) 27 % (12-44); MEAN CORPUSCULAR HEMOGLOBIN 32 pg (25-34); MEAN CORPUSCULAR HGB CONC 34 g/dL (32-36); MEAN CORPUSCULAR VOLUME 92 fL (80-99); MEAN PLATELET VOLUME 9.6 fL (9.0-12.2); MONOCYTES # (AUTO) 1.4 10^3/uL (0.0-1.0); MONOCYTES % (AUTO) 18 % (0-12); NEUTROPHILS # (AUTO) 4.4 10^3/uL (1.8-7.8); NEUTROPHILS % (AUTO) 55 % (42-75); PLATELET COUNT 134 10^3/uL (130-400)
[2020-06-28 07:41] LABS: ALANINE AMINOTRANSFERASE 31 U/L (0-55); ALBUMIN 3.3 GM/DL (3.2-4.5); ALKALINE PHOSPHATASE 76 U/L (40-136); BILIRUBIN,TOTAL 0.3 MG/DL (0.1-1.0); BUN/CREATININE RATIO 14; CALCIUM 8.4 MG/DL (8.5-10.1); CARBON DIOXIDE 24 MMOL/L (21-32); CHLORIDE 106 MMOL/L (98-107); CREATININE SERUM 0.84 MG/DL (0.60-1.30); GFR ESTIMATED > 60; GLUCOSE 98 MG/DL (70-105); POTASSIUM 4.8 MMOL/L (3.6-5.0); SODIUM 140 MMOL/L (135-145); TOTAL PROTEIN 6.5 GM/DL (6.4-8.2)
[2020-06-28] MEDS ORDERED: LEVO50TA6 PEG (09:47)
[2020-06-28] MEDS ORDERED: LACT10SO PEG (09:47)
[2020-06-28] MEDS ORDERED: RIFA550T PEG (09:47)
[2020-06-28] MEDS ORDERED: CLOB10TA3 PEG (09:47)
[2020-06-28] MEDS ORDERED: PHEN125O3 PEG (09:47)
[2020-06-28] MEDS ORDERED: VALP250S3 PEG (09:47)
[2020-06-28] MEDS ORDERED: AZIT250T12 PEG (09:47)
--- NOTE | 2020-06-28 09:49 | NUR ---
SPOKE WITH THE PTS FATHER (NELL) AND WENT THRU THE EXT MED HISTORY TO COMPLETE THE MED REC NELL WAS ABLE TO NAME ALL THE PT MEDICATIONS WELL WHEN/HOW HE TAKES EACH XIFAXAN 550MG- ACCORDING TO NELL THEY GET THIS FROM [facility] DUR TO THE COST OTC MEDS: NONE
[2020-06-28] MEDS ORDERED: NS IV 500 ML 500 ML IV SCH (12:21)
--- NOTE | 2020-06-28 12:24 | History & Physical-Hospitalist ---
History of Present Illness HPI/Chief Complaint Pt is a 60yoCM with a PMH of intellectual disability who was brought to the hospital due to known COVID19 diagnosis with worsening symptoms. His symptoms started a few days ago and he was seen in the ER two days ago and diagnosed with COVID19 then. He developed hypoxia at home as low as 84% and was confused and uncooperative with care. He was also febrile at 103.8. He is unable to tell me much of this history but he does state that he is feeling better this morning. I called and spoke with his dad as well who confirms above story. He is currently on 4lpm NC. Source: patient Date Seen 06/28/20 Time Seen by a Provider: 12:24 Attending Physician Jose Eduardo Childs MD PCP Alexis Paige DO Referring Physician Date of Admission Jun 27, 2020 at 19:04 Home Medications & Allergies Home Medications Reviewed patient Home Medication Reconciliation performed by pharmacy medication reconciliations pearl technician and/or nursing. Patients Allergies have been reviewed. Allergies Allergies Coded Allergies No Known Drug Allergies (Ubwjfmxynl09/29/09) Past Bclwlvz-Ublgvu-Kdxdea Hx Past Med/Social Hx: Reviewed Nursing Past Med/Soc Hx Patient Social History Alcohol Use: Denies Use Recreational Drug Use: No Smoking Status: Never a Smoker 2nd Hand Smoke Exposure: No Recent Foreign Travel: No Contact w/other who traveled: No Recent Hopitalizations: No Recent Infectious Disease Expo: No Immunizations Up To Date Tetanus Booster (TDap): Unknown Seasonal Allergies Seasonal Allergies: No Past Medical History Surgeries: Bowel Surgery Neurological: Paralysis, Seizure Disorder Endocrine: Hypothyroidsim History of Blood Disorders: No Review of Systems ROS-Unable to Obtain: limited by clinical status Constitutional: fever Respiratory: cough, short of breath Physical Exam Physical Exam Vital Signs Vital Signs - First Documented 06/27/20 18:20 Temp 39.9 Pulse 125 Resp 35 B/P (MAP) 109/79 (89) Pulse Ox 100 O2 Delivery OxyMask O2 Flow Rate 15.00 Capillary Refill : Less Than 3 SecondsLess Than 3 Seconds Height, Weight, BMI Height: 5'11.00" Weight: 185lbs. oz. 83.557556pp; 27.68 BMI Method:Estimated General Appearance: No Apparent Distress, Chronically ill HEENT: PERRL/EOMI, Moist Mucous Membranes Neck: Normal Inspection, Supple Respiratory: Lungs Clear, No Accessory Muscle Use, Other (on 4lpm) Cardiovascular: Regular Rate, Rhythm, No JVD, No Murmur Gastrointestinal: Normal Bowel Sounds, Non Tender, Soft Extremity: Normal Capillary Refill, No Calf Tenderness, No Pedal Edema Neurologic/Psychiatric: Alert, Oriented x3, Normal Mood/Affect Skin: Normal Color, Warm/Dry Results Results/Procedures Labs Laboratory Tests 06/27/20 18:40 06/28/20 06:45 Patient resulted labs reviewed. Imaging: Reviewed Imaging Report Imaging [facility]. [place], [place] NAME: JUSTICE CASTRO [facility] REC#: [id number] PT STATUS: REG ER : 1960 PHYSICIAN: LOAN HUA MD ADMIT DATE: 06/27/20/ER Signed Date of Exam:06/27/20 CHEST 1 VIEW, AP/PA ONLY EXAMINATION: Chest 1 view HISTORY: sepsis COMPARISON: Chest radiograph 06/25/2020 FINDINGS: Heart size and pulmonary vasculature are normal. There are increasing patchy airspace opacities within the right lung base. Left-sided metallic device overlying the chest is unchanged. No pleural effusion or pneumothorax. The osseous structures are intact. IMPRESSION: 1. Increasing right basilar airspace opacities which could represent atelectasis or pneumonia in the appropriate clinical setting. Dictated by: Dictated on workstation # [id number] Dict: 06/27/201932 Trans: 06/27/202007 [facility] [id number] Interpreted by: ELODIA ROB DO Electronically signed by: ELODIA ROB DO 06/27/202007 Assessment/Plan Admission Diagnosis Acute Hypoxic Respiratory Failure due to COVID19 Admission Status: Inpatient Order (span 2 midnights) Reason for Inpatient Admission: see below Assessment and Plan Acute Hypoxic Respiratory Failure due to COVID19 Contineu Decadron Start remdesivir Discussed EUA status of convalescent plasma with dad who consents to treatment Lovenox MAT protocol IS Wean oxygen as able Continue Rocephin and Azithromycin Intellectual Disability Seizure disorder Continue home meds DVT ppx: Lovenox Clinical Quality Measures DVT/VTE Risk/Contraindication: Risk Factor Score Per Nursin RFS Level Per Nursing on Admit: 4+=Very High BINU MARCUM MD Jun 28, 2020 12:24
[2020-06-28] MEDS ORDERED: REMDESIVIR INJ 200 MG in NS (IVPB) 210 ML IV NR (12:30)
--- NOTE | 2020-06-28 13:53 | NUR ---
The patient is Oriental Orthodox and attends [facility] [facility] [employer]. He describes meaningful and trusting relationship with his it applications developer, Moiz Holland, and his girlfriend Dina. He demonstrates a joyful and grateful attitude rooted in his felisa. Manager Commission offered prayer. The patient expressed feeling validated and cared for.
--- NOTE | 2020-06-28 14:11 | NUR ---
CM/SS following patient for discharge planning. CM/SS reviewed ER notes regarding code status and wishes. CM/SS contacted the patient's DPMAGDA Monahan (Nick), to discuss legal guardianship. Nick reports that he is unsure if they went through the courts to set it up but a [employer] came and they received 2 signatures. The bankruptcy attorney is Ghulam Valadez. Nick reports that Dina is supposed to bring the copy of paperwork. CM/SS attempted to contact Dina (significant other and caregiver) but it went straight to voicemail that was not set up. Will attempt again. CM/SS will continue to follow.
[2020-06-28] MEDS: ENOXAPARIN 40 MG/0.4 ML (LOVENOX) SYR SQ SCH (18:30)
[2020-06-29] VITALS: BP 102/63
[2020-06-29] MEDS: RT-ALBUTEROL INHALER HFA (VENTOLIN HFA) 18 GM IH SCH ×3 (01:55→22:05)
[2020-06-29 03:59] VITALS: BP 116/75
[2020-06-29] MEDS: LEVOTHYROXINE 50 MCG (LEVOTHROID) TAB PO SCH (05:49)
[2020-06-29 06:49] LABS: ALBUMIN 3.1 GM/DL (3.2-4.5)
[2020-06-29 06:50] LABS: CHLORIDE 103 MMOL/L (98-107); SODIUM 138 MMOL/L (135-145)
[2020-06-29 06:51] LABS: CALCIUM 7.6 MG/DL (8.5-10.1)
[2020-06-29 06:52] LABS: GLUCOSE 91 MG/DL (70-105)
[2020-06-29 06:53] LABS: CARBON DIOXIDE 23 MMOL/L (21-32)
[2020-06-29 06:54] LABS: BILIRUBIN,TOTAL 0.5 MG/DL (0.1-1.0)
[2020-06-29 06:55] LABS: ALKALINE PHOSPHATASE 67 U/L (40-136); CREATININE SERUM 0.84 MG/DL (0.60-1.30); GFR ESTIMATED > 60
[2020-06-29 06:56] LABS: BUN/CREATININE RATIO 12
[2020-06-29 06:58] LABS: ALANINE AMINOTRANSFERASE 33 U/L (0-55)
[2020-06-29 08:30] VITALS: BP 91/55
[2020-06-29] MEDS: VALPROIC ACID SYRUP 250 MG/5 ML UDC PO SCH ×2 (08:32→21:36)
[2020-06-29] MEDS: PHENYTOIN ORAL SUSPENSION 125 MG/5 ML UDC PO SCH ×2 (08:33→21:36)
[2020-06-29] MEDS: RIFAXIMIN 550 MG TABLET (XIFAXAN) PO SCH ×2 (08:33→21:36)
--- NOTE | 2020-06-29 10:45 | NUR ---
KATHIA WHITNEY NOTIFIED OF IS ORDER, IS PLACED OUTSIDE PT'S ROOM ON CLEAN CART.
--- NOTE | 2020-06-29 11:19 | Progress Note - Hospitalist ---
Subjective HPI/CC On Admission Date Seen by Provider: Jun 29, 2020 Time Seen by Provider: 11:13 Pt is a 60yoCM with a PMH of intellectual disability who was brought to the hospital due to known COVID19 diagnosis with worsening symptoms. His symptoms started a few days ago and he was seen in the ER two days ago and diagnosed with COVID19 then. He developed hypoxia at home as low as 84% and was confused and uncooperative with care. He was also febrile at 103.8. He is unable to tell me much of this history but he does state that he is feeling better this morning. I called and spoke with his dad as well who confirms above story. He is currently on 4lpm NC. Subjective/Events-last exam Pt reports feeling much better today. He also thinks that I look much better today as well and is in good spirits. Focused Exam Lactate Level 06/27/20 18:40: Lactic Acid Level 2.29*H 06/27/20 21:20: Lactic Acid Level 2.33*H 06/27/20 23:15: Lactic Acid Level 1.20 Objective Exam Vital Signs Vital Signs Date Time Temp Pulse Resp B/P (MAP) Pulse Ox O2 Delivery O2 Flow Rate FiO2 06/29/20 08:30 36.4 90 20 91/55 (67) 94 Nasal Cannula 4.00 Capillary Refill : Less Than 3 SecondsLess Than 3 Seconds General Appearance: No Apparent Distress, Chronically ill Respiratory: Lungs Clear, No Respiratory Distress Cardiovascular: Regular Rate, Rhythm, No Murmur Gastrointestinal: Normal Bowel Sounds, Other (ostomy) Neurologic/Psychiatric: Alert, Oriented x3 (to major details ) Results/Procedures Lab Laboratory Tests 06/29/20 06:07 Patient resulted labs reviewed. Imaging: Reviewed Imaging Report Assessment/Plan Assessment and Plan Assess & Plan/Chief Complaint Acute Hypoxic Respiratory Failure due to COVID19 Continue Decadron and Remdesivir s/p 1 unit convalescent plasma Lovenox MAT protocol IS Wean oxygen as able Continue Rocephin and Azithromycin Intellectual Disability Seizure disorder Continue home meds DVT ppx: Lovenox Diagnosis/Problems Diagnosis/Problems (1) Intellectual disability (2) Seizure disorder (3) Acute respiratory failure (4) COVID-19 Status: Acute Clinical Quality Measures DVT/VTE Risk/Contraindication: Risk Factor Score Per Nursin RFS Level Per Nursing on Admit: 4+=Very High JOSSUE,BINU M MD Jun 29, 2020 11:19
[2020-06-29 11:44] VITALS: BP 95/61
[2020-06-29] MEDS: REMDESIVIR INJ 100 MG in NS (IVPB) 230 ML IV SCH (12:24)
--- NOTE | 2020-06-29 13:22 | NUR ---
CM/SS follow up. CM/SS contacted the patient's father Nick to discuss the patient's baseline functioning. Home: Nick reports that the patient , Dina, and himself have all been staying together recently. The patient is independent at home with his ADL's. Equipment: The patient is currently wearing oxygen but does not at baseline. Caregiver: The patient's caregiver is Dina; however, she is not a paid caregiver. She is the patient's significant other. They have been dating for the past 18 years. Nick reports she helps empty his ostomy bag, shaving, and reminding him to go to bed. Nick reports he will assist with the ostomy bag if Dina isn't available. DPOA: The patient's significant other brought a copy of the DPOA to the hospital. A copy is in the chart. The patient's father Nick is the patient's Power of Car Knocker and can make the decision for DNR due to it not being a court appointed guardian. CM/SS will continue to follow.
[2020-06-29] MEDS: ENOXAPARIN 40 MG/0.4 ML (LOVENOX) SYR SQ SCH (15:01)
[2020-06-29 15:29] VITALS: BP 113/85
[2020-06-29 19:14] VITALS: BP 119/76
[2020-06-29] MEDS: cefTRIAXone 1,000 MG/SWFI 10 ML IV PUSH IV SCH ×2 (21:36)
[2020-06-29] MEDS: AZITHROMYCIN 250 MG TAB (ZITHROMAX) PO SCH (21:36)
[2020-06-30] VITALS (7 sets, daily range): BP systolic 107–125; BP diastolic 70–85
[2020-06-30] MEDS: RT-ALBUTEROL INHALER HFA (VENTOLIN HFA) 18 GM IH SCH ×4 (02:27→19:08)
[2020-06-30] MEDS: LEVOTHYROXINE 50 MCG (LEVOTHROID) TAB PO SCH (05:45)
[2020-06-30 07:12] LABS: CHLORIDE 106 MMOL/L (98-107); POTASSIUM 3.9 MMOL/L (3.6-5.0); SODIUM 138 MMOL/L (135-145)
[2020-06-30 07:13] LABS: CALCIUM 7.8 MG/DL (8.5-10.1)
[2020-06-30 07:14] LABS: GLUCOSE 99 MG/DL (70-105)
[2020-06-30 07:15] LABS: CARBON DIOXIDE 22 MMOL/L (21-32)
[2020-06-30 07:16] LABS: BILIRUBIN,TOTAL 0.3 MG/DL (0.1-1.0)
[2020-06-30 07:17] LABS: ALKALINE PHOSPHATASE 67 U/L (40-136); CREATININE SERUM 0.77 MG/DL (0.60-1.30); GFR ESTIMATED > 60
[2020-06-30 07:19] LABS: BUN/CREATININE RATIO 14
[2020-06-30 07:20] LABS: ALANINE AMINOTRANSFERASE 35 U/L (0-55)
[2020-06-30] MEDS: PHENYTOIN ORAL SUSPENSION 125 MG/5 ML UDC PO SCH ×2 (08:27→19:48)
[2020-06-30] MEDS: VALPROIC ACID SYRUP 250 MG/5 ML UDC PO SCH ×2 (08:29→19:48)
[2020-06-30] MEDS: RIFAXIMIN 550 MG TABLET (XIFAXAN) PO SCH ×2 (08:29→19:48)
[2020-06-30] MEDS: REMDESIVIR INJ 100 MG in NS (IVPB) 230 ML IV SCH (12:50)
--- NOTE | 2020-06-30 13:39 | Progress Note - Hospitalist ---
Subjective HPI/CC On Admission Date Seen by Provider: Jun 30, 2020 Time Seen by Provider: 13:34 Pt is a 60yoCM with a PMH of intellectual disability who was brought to the hospital due to known COVID19 diagnosis with worsening symptoms. His symptoms started a few days ago and he was seen in the ER two days ago and diagnosed with COVID19 then. He developed hypoxia at home as low as 84% and was confused and uncooperative with care. He was also febrile at 103.8. He is unable to tell me much of this history but he does state that he is feeling better this morning. I called and spoke with his dad as well who confirms above story. He is currently on 4lpm NC. Subjective/Events-last exam Pt reports feeling ok today. only complaint is that he didn't like lunch. Otherwise no complaints. Focused Exam Lactate Level 06/27/20 18:40: Lactic Acid Level 2.29*H 06/27/20 21:20: Lactic Acid Level 2.33*H 06/27/20 23:15: Lactic Acid Level 1.20 Objective Exam Vital Signs Vital Signs Date Time Temp Pulse Resp B/P (MAP) Pulse Ox O2 Delivery O2 Flow Rate FiO2 06/30/20 12:00 36.0 90 20 111/84 (93) 90 Nasal Cannula 5.00 Capillary Refill : Less Than 3 SecondsLess Than 3 Seconds General Appearance: No Apparent Distress, Chronically ill Respiratory: Lungs Clear, Other (on 5lpm) Cardiovascular: Regular Rate, Rhythm, No Murmur Gastrointestinal: Normal Bowel Sounds, Non Tender, Soft Neurologic/Psychiatric: Alert, Oriented x3 Results/Procedures Lab Laboratory Tests 06/30/20 06:32 Patient resulted labs reviewed. Imaging: Reviewed Imaging Report Assessment/Plan Assessment and Plan Assess & Plan/Chief Complaint Acute Hypoxic Respiratory Failure due to COVID19 Continue Decadron and Remdesivir s/p 1 unit convalescent plasma Lovenox MAT protocol IS Wean oxygen as able, stable right now Continue Rocephin and Azithromycin Intellectual Disability Seizure disorder Continue home meds DVT ppx: Lovenox Diagnosis/Problems Diagnosis/Problems (1) Intellectual disability (2) Seizure disorder (3) Acute respiratory failure (4) COVID-19 Status: Acute Clinical Quality Measures DVT/VTE Risk/Contraindication: Risk Factor Score Per Nursin RFS Level Per Nursing on Admit: 4+=Very High JOSSUE,BINU M MD Jun 30, 2020 13:39
--- NOTE | 2020-06-30 14:14 | Physical Therapy Evaluation ---
PT Evaluation-General Medical Diagnosis Admission Date Jun 27, 2020 at 19:04 Medical Diagnosis: COVID; AMA Onset Date: Jun 30, 2020 Therapy Diagnosis Therapy Diagnosis: weakness; abn gait Height/Weight Height (Feet): 5 Height (Inches): 11.00 Weight (Pounds): 185 Precautions Precautions/Isolations: Airborne Isolation, Contact Isolation, Droplet Isolation, Fall Prevention Referral Physician: Brent Reason for Referral: Evaluation/Treatment Medical History Pertinent Medical History: TBI Additional Medical History seizure disorder; ostomy Current History Admitted through ED with AMS and noted COVID 19 Reviewed History: Yes Social History Home: Single Level Details unavailable, pt is a poor historian. Prior Prior Level of Function SCALE: Activities may be completed with or without assistive devices. 7-Qkvuxehcto-knxryej completes the activity by him/herself with no assistance from a helper. 5-Set-up or Clean-up Assistance-helper sets up or cleans up; patient completes activity. [place] assists only prior to or following the activity. 4-Supervision or Touching Assistance-helper provides verbal cues and/or touching/steadying and/or contact guard assistance as patient completes activ ity. Assistance may be provided throughout the activity or intermittently. 3-Partial/Moderate Assistance-helper does LESS THAN HALF the effort. [place] lifts, holds or supports trunk or limbs, but provides less than half the effort. 2-Substantial/Maximal Assistance-helper does MORE THAN HALF the effort. [place] lifts or holds trunk or limbs and provides more than half the effort. 9-Lllajsksa-gnqrqq does ALL the effort. Patient does none of the effort to complete the activity. Or, the assistance of 2 or more helpers is required for the patient to complete the activity. If activity was not attempted, code reason: 7-Patient Refused. 9-Not Applicable-not attempted and the patient did not perform the activity before the current illness, exacerbation or injury. 10-Not Attempted due to Environmental Limitations-(lack of equipment, weather restraints, etc.). 88-Not Attempted due to Medical Conditions or Safety Concerns. I believe he was indep with mobility; he does have a helmet in his room for use to protect his head. PT Evaluation-Current Subjective Pt agrees to PT after some convincing. Pt talks throughout treatment, understandable but nonsensical. He does ADAMENTLY refuse to wear his helmet. "I HATE that thing." Pain Numeric Pain Scale: 0-No Pain Objective Patient Orientation: Person ROM/Strength ROM Lower Extremities WFL Strength Lower Extremities grossly 4-/5 throughout Integumentary/Posture Integumentary intact Sensory Vision: Functional Hearing: Functional Hand Dominance: Right Sensation Right Lower Extremit: Intact Sensation Left Lower Extremity: Intact Transfers Roll Left to Right (QC): 4 Sit to Lying (QC): 3 Sit to Stand (QC): 3 Chair/Sdf-sq-Bkxxi Xfer(QC): 3 (pt able to take 4-5 steps with FITTINGS TIGHTENER to transfer to the chair with CGA-min daily.t ) Pt up in chair post treatment with oxygen in situ; chair alarm activiated and needs met. Gait Does the Patient Walk?: Yes Comments/Gait Description Pt took steps to transfer to the chair. Balance Sitting Static: Good Sitting Dynamic: Good Standing Static: Fair Standing Dynamic: Fair Assessment/Needs Post dx of COVID with noted decline in funcitonal strength that impairs safe mobility. He will benefit from skilled PT services to promote upright activity to allow him to return home at [facility]. Rehab Potential: Good PT Sanitation Supervisor Goals Sanitation Supervisor Goals PT Sanitation Supervisor Goals Time Frame: Jul 08, 2020 Sit to Lying (QC): 6 Lying-Sitting on Side/Bed(QC): 6 Sit to Stand (QC): 6 Chair/Hok-wb-Lsmhp Xfer(QC): 6 Walk 50ft with 2 Turns (QC): 6 PT Plan Problem List Problem List: Activity Tolerance, Functional Strength, Safety, Balance, Gait, Transfer Treatment/Plan Treatment Plan: Continue Plan of Care Treatment Plan: Bed Mobility, Education, Functional Activity Willian, Functional Strength, Gait, Safety, Therapeutic Exercise, Transfers Treatment Duration: Jul 08, 2020 Frequency: 6 times per week Estimated Hrs Per Day: .25 hour per day Patient and/or Family Agrees t: Yes Safety Risks/Education Patient Education: Safety Issues Teaching Recipient: Patient Teaching Methods: Discussion Response to Teaching: Reinforcement Needed Discharge Recommendations Therapy Discharge Recommendati: Post Acute PT Time/GCodes Time In: 1045 Time Out: 1110 Total Billed Treatment Time: 25 Total Billed Treatment visit EVM 15 FA 10 RAUL LEE PT Jun 30, 2020 14:14
[2020-06-30] MEDS: ENOXAPARIN 40 MG/0.4 ML (LOVENOX) SYR SQ SCH (15:45)
[2020-06-30] MEDS: cefTRIAXone 1,000 MG/SWFI 10 ML IV PUSH IV SCH ×2 (19:46)
[2020-06-30] MEDS: AZITHROMYCIN 250 MG TAB (ZITHROMAX) PO SCH (19:48)
[2020-07-01] MEDS: RT-ALBUTEROL INHALER HFA (VENTOLIN HFA) 18 GM IH SCH ×4 (03:41→20:18)
[2020-07-01 03:59] VITALS: BP 111/80
[2020-07-01] MEDS: LEVOTHYROXINE 50 MCG (LEVOTHROID) TAB PO SCH (06:52)
[2020-07-01] MEDS: ONDANSETRON 4 MG/2 ML (SDV) Z0FRAN IV PRN (06:54)
[2020-07-01 07:00] LABS: ALANINE AMINOTRANSFERASE 43 U/L (0-55); ALBUMIN 3.2 GM/DL (3.2-4.5); ALKALINE PHOSPHATASE 74 U/L (40-136); BILIRUBIN,TOTAL 0.4 MG/DL (0.1-1.0); BUN/CREATININE RATIO 12; CALCIUM 8.5 MG/DL (8.5-10.1); CARBON DIOXIDE 21 MMOL/L (21-32); CHLORIDE 106 MMOL/L (98-107); CREATININE SERUM 0.81 MG/DL (0.60-1.30); GFR ESTIMATED > 60; GLUCOSE 84 MG/DL (70-105); SODIUM 140 MMOL/L (135-145); TOTAL PROTEIN 6.5 GM/DL (6.4-8.2)
[2020-07-01 08:00] VITALS: BP 100/63
[2020-07-01] MEDS: RIFAXIMIN 550 MG TABLET (XIFAXAN) PO SCH ×2 (09:11→20:24)
[2020-07-01] MEDS: VALPROIC ACID SYRUP 250 MG/5 ML UDC PO SCH ×2 (09:11→20:24)
[2020-07-01] MEDS: PHENYTOIN ORAL SUSPENSION 125 MG/5 ML UDC PO SCH ×2 (09:11→20:24)
[2020-07-01 12:00] VITALS: BP 100/64
[2020-07-01] MEDS: REMDESIVIR INJ 100 MG in NS (IVPB) 230 ML IV SCH (12:36)
--- NOTE | 2020-07-01 13:02 | Progress Note - Hospitalist ---
Subjective HPI/CC On Admission Date Seen by Provider: Jul 01, 2020 Time Seen by Provider: 12:57 Pt is a 60yoCM with a PMH of intellectual disability who was brought to the hospital due to known COVID19 diagnosis with worsening symptoms. His symptoms started a few days ago and he was seen in the ER two days ago and diagnosed with COVID19 then. He developed hypoxia at home as low as 84% and was confused and uncooperative with care. He was also febrile at 103.8. He is unable to tell me much of this history but he does state that he is feeling better this morning. I called and spoke with his dad as well who confirms above story. He is currently on 4lpm NC. Subjective/Events-last exam Pt reports doing well. No complaints. Objective Exam Vital Signs Vital Signs Date Time Temp Pulse Resp B/P (MAP) Pulse Ox O2 Delivery O2 Flow Rate FiO2 07/01/20 08:00 Nasal Cannula 5.00 07/01/20 08:00 36.0 79 16 100/63 (75) 93 Capillary Refill : Less Than 3 SecondsLess Than 3 Seconds General Appearance: No Apparent Distress, Chronically ill Respiratory: Lungs Clear, No Respiratory Distress Cardiovascular: Regular Rate, Rhythm, No Murmur Gastrointestinal: Normal Bowel Sounds, Non Tender, Soft Neurologic/Psychiatric: Alert, Oriented x3 Results/Procedures Lab Laboratory Tests 07/01/20 05:24 Patient resulted labs reviewed. Imaging: Reviewed Imaging Report Assessment/Plan Assessment and Plan Assess & Plan/Chief Complaint Acute Hypoxic Respiratory Failure due to COVID19 Continue Decadron and Remdesivir s/p 1 unit convalescent plasma Lovenox MAT protocol IS Wean oxygen as able, stable right now Continue Rocephin and Azithromycin Attempt to wean oxygen Intellectual Disability Seizure disorder Continue home meds DVT ppx: Lovenox Diagnosis/Problems Diagnosis/Problems (1) Intellectual disability (2) Seizure disorder (3) Acute respiratory failure (4) COVID-19 Status: Acute Clinical Quality Measures DVT/VTE Risk/Contraindication: Risk Factor Score Per Nursin RFS Level Per Nursing on Admit: 4+=Very High BINU MARCUM MD Jul 01, 2020 13:02
--- NOTE | 2020-07-01 13:27 | Physical Therapy Daily Note ---
PT Daily Note-Current Subjective Patient is very alert and agrees to PT. Mental Status Patient Orientation: Person, Time, Situation Attachments: Oxygen Transfers SCALE: Activities may be completed with or without assistive devices. 0-Xgpvjkqiyt-adxcmor completes the activity by him/herself with no assistance from a helper. 5-Set-up or Clean-up Assistance-helper sets up or cleans up; patient completes activity. [place] assists only prior to or following the activity. 4-Supervision or Touching Assistance-helper provides verbal cues and/or touching/steadying and/or contact guard assistance as patient completes activity. Assistance may be provided throughout the activity or intermittently. 3-Partial/Moderate Assistance-helper does LESS THAN HALF the effort. [place] lifts, holds or supports trunk or limbs, but provides less than half the effort. 2-Substantial/Maximal Assistance-helper does MORE THAN HALF the effort. [place] lifts or holds trunk or limbs and provides more than half the effort. 6-Znufjsigr-jqcfgk does ALL the effort. Patient does none of the effort to complete the activity. Or, the assistance of 2 or more helpers is required for the patient to complete the activity. If activity was not attempted, code reason: 7-Patient Refused. 9-Not Applicable-not attempted and the patient did not perform the activity before the current illness, exacerbation or injury. 10-Not Attempted due to Environmental Limitations-(lack of equipment, weather restraints, etc.). 88-Not Attempted due to Medical Conditions or Safety Concerns. 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 Patient tolerated treatment well. PT Fpc Goals Fpc Goals PT Fpc Goals Time Frame: Jul 08, 2020 Sit to Lying (QC): 6 Lying-Sitting on Side/Bed(QC): 6 Sit to Stand (QC): 6 Chair/Cgl-yj-Maziy Xfer(QC): 6 Walk 50ft with 2 Turns (QC): 6 PT Plan Treatment/Plan Treatment Plan: Continue Plan of Care Treatment Plan: Bed Mobility, Education, Functional Activity Willian, Functional Strength, Gait, Safety, Therapeutic Exercise, Transfers Treatment Duration: Jul 08, 2020 Frequency: 6 times per week Estimated Hrs Per Day: .25 hour per day Patient and/or Family Agrees t: Yes Time/GCodes Time In: 1200 Time Out: 1210 Total Billed Treatment Time: 10 Total Billed Treatment 1 visit EX 10 min JASMIN COPELAND PT Jul 01, 2020 13:27
[2020-07-01] MEDS: ENOXAPARIN 40 MG/0.4 ML (LOVENOX) SYR SQ SCH (16:02)
[2020-07-01 16:10] VITALS: BP 114/80
[2020-07-01 19:14] VITALS: BP 122/76
[2020-07-01] MEDS: AZITHROMYCIN 250 MG TAB (ZITHROMAX) PO SCH (20:25)
[2020-07-01] MEDS: cefTRIAXone 1,000 MG/SWFI 10 ML IV PUSH IV SCH ×2 (20:25)
--- NOTE | 2020-07-01 22:19 | NUR ---
Noe, pharmacy, called at the beginning of the shift instructing this RN to reach out to Albaro's father, who is his DPOA, in regards to have him or a family member drop off his bottle of clobazam 10mg for seizures to be reviewed and started by pharmacy/Dr. Kennedy. This RN called Dr. Kennedy at 2208 in regards to her pending order of clobazam 10 PO BID. PT's mother dropped off the clobazam pill bottle at 2130, and said to administer one capsule PO tonight. One capsule will be administered, will make a new note entry when given to document the time given.
--- NOTE | 2020-07-01 22:46 | NUR ---
Pt's Clobazam 10 mg PO capsule given at 2240.
[2020-07-02] VITALS: BP 113/68
[2020-07-02] MEDS: RT-ALBUTEROL INHALER HFA (VENTOLIN HFA) 18 GM IH SCH ×4 (02:24→21:07)
[2020-07-02 04:00] VITALS: BP 115/72
[2020-07-02] MEDS: LEVOTHYROXINE 50 MCG (LEVOTHROID) TAB PO SCH (05:41)
[2020-07-02 06:44] LABS: CHLORIDE 106 MMOL/L (98-107); POTASSIUM 4.1 MMOL/L (3.6-5.0); SODIUM 143 MMOL/L (135-145)
[2020-07-02 06:45] LABS: CALCIUM 7.9 MG/DL (8.5-10.1)
[2020-07-02 06:46] LABS: GLUCOSE 96 MG/DL (70-105); TOTAL PROTEIN 5.7 GM/DL (6.4-8.2)
[2020-07-02 06:47] LABS: CARBON DIOXIDE 26 MMOL/L (21-32)
[2020-07-02 06:48] LABS: BILIRUBIN,TOTAL 0.4 MG/DL (0.1-1.0)
[2020-07-02 06:49] LABS: ALKALINE PHOSPHATASE 84 U/L (40-136)
[2020-07-02 06:50] LABS: CREATININE SERUM 0.83 MG/DL (0.60-1.30); GFR ESTIMATED > 60
[2020-07-02 06:51] LABS: BUN/CREATININE RATIO 13
[2020-07-02 06:53] LABS: ALANINE AMINOTRANSFERASE 58 U/L (0-55)
[2020-07-02 07:41] VITALS: BP 109/63
[2020-07-02] MEDS: PHENYTOIN ORAL SUSPENSION 125 MG/5 ML UDC PO SCH ×2 (08:51→20:53)
[2020-07-02] MEDS: VALPROIC ACID SYRUP 250 MG/5 ML UDC PO SCH ×2 (08:51→20:53)
[2020-07-02] MEDS: RIFAXIMIN 550 MG TABLET (XIFAXAN) PO SCH ×2 (08:51→20:53)
--- NOTE | 2020-07-02 11:22 | Progress Note - Hospitalist ---
Subjective HPI/CC On Admission Date Seen by Provider: Jul 02, 2020 Time Seen by Provider: 11:19 Pt is a 60yoCM with a PMH of intellectual disability who was brought to the hospital due to known COVID19 diagnosis with worsening symptoms. His symptoms started a few days ago and he was seen in the ER two days ago and diagnosed with COVID19 then. He developed hypoxia at home as low as 84% and was confused and uncooperative with care. He was also febrile at 103.8. He is unable to tell me much of this history but he does state that he is feeling better this morning. I called and spoke with his dad as well who confirms above story. He is currently on 4lpm NC. Subjective/Events-last exam Pt reports doing great. No complaints. Discussed with RN and no concerns. Objective Exam Vital Signs Vital Signs Date Time Temp Pulse Resp B/P (MAP) Pulse Ox O2 Delivery O2 Flow Rate FiO2 07/02/20 09:07 94 Nasal Cannula 5.00 07/02/20 07:41 35.7 75 18 109/63 (78) Capillary Refill : Less Than 3 SecondsLess Than 3 Seconds General Appearance: No Apparent Distress, Chronically ill Respiratory: Lungs Clear, No Accessory Muscle Use, Other (on 5lpm) Cardiovascular: Regular Rate, Rhythm, No Murmur Gastrointestinal: Normal Bowel Sounds, Soft Neurologic/Psychiatric: Alert, Oriented x3 Results/Procedures Lab Laboratory Tests 07/02/20 06:10 Patient resulted labs reviewed. Imaging: Reviewed Imaging Report Assessment/Plan Assessment and Plan Assess & Plan/Chief Complaint Acute Hypoxic Respiratory Failure due to COVID19 Continue Decadron and Remdesivir s/p 1 unit convalescent plasma Lovenox MAT protocol IS Wean oxygen as able, stable right now Continue Rocephin and Azithromycin Attempt to wean oxygen Intellectual Disability Seizure disorder Continue home meds DVT ppx: Lovenox Diagnosis/Problems Diagnosis/Problems (1) Intellectual disability (2) Seizure disorder (3) Acute respiratory failure (4) COVID-19 Status: Acute Clinical Quality Measures DVT/VTE Risk/Contraindication: Risk Factor Score Per Nursin RFS Level Per Nursing on Admit: 4+=Very High BINU MARCUM MD Jul 02, 2020 11:22
[2020-07-02 11:37] VITALS: BP 119/63
--- NOTE | 2020-07-02 12:42 | Physical Therapy Daily Note ---
PT Daily Note-Current Subjective Agrees to PT. No complaints. Transfers SCALE: Activities may be completed with or without assistive devices. 8-Mxnogbjukb-qegrscj completes the activity by him/herself with no assistance from a helper. 5-Set-up or Clean-up Assistance-helper sets up or cleans up; patient completes activity. [place] assists only prior to or following the activity. 4-Supervision or Touching Assistance-helper provides verbal cues and/or touching/steadying and/or contact guard assistance as patient completes activity. Assistance may be provided throughout the activity or intermittently. 3-Partial/Moderate Assistance-helper does LESS THAN HALF the effort. [place] lifts, holds or supports trunk or limbs, but provides less than half the effort. 2-Substantial/Maximal Assistance-helper does MORE THAN HALF the effort. [place] lifts or holds trunk or limbs and provides more than half the effort. 7-Cijdghhmz-likhcr does ALL the effort. Patient does none of the effort to complete the activity. Or, the assistance of 2 or more helpers is required for the patient to complete the activity. If activity was not attempted, code reason: 7-Patient Refused. 9-Not Applicable-not attempted and the patient did not perform the activity before the current illness, exacerbation or injury. 10-Not Attempted due to Environmental Limitations-(lack of equipment, weather restraints, etc.). 88-Not Attempted due to Medical Conditions or Safety Concerns. Treatments Pt transfers supine to sit EOB with min assist and cues to initiate. Sit to stand all attempts with CG to min assist. Transferred to chair with IRRIGATOR SPRINKLING SYSTEM and min assisit. Sit to stand multiple reps for marching, and calf raises. Worked on upright posture and deep breathing as well as promoting functional strength and activity tolerance in standing. Pt in chair post treatment with needs met and chair alarm activated. Assessment Current Status: Good Progress Tolerated well. Progressing with strength. PT Jail Goals Faculty Criminal Justice Goals PT Jail Goals Time Frame: Jul 08, 2020 Sit to Lying (QC): 6 Lying-Sitting on Side/Bed(QC): 6 Sit to Stand (QC): 6 Chair/Rht-jy-Cjjvp Xfer(QC): 6 Walk 50ft with 2 Turns (QC): 6 PT Plan Problem List Problem List: Activity Tolerance, Functional Strength, Safety Treatment/Plan Treatment Plan: Continue Plan of Care Treatment Plan: Bed Mobility, Education, Functional Activity Willian, Functional Strength, Gait, Safety, Therapeutic Exercise, Transfers Treatment Duration: Jul 08, 2020 Frequency: 6 times per week Estimated Hrs Per Day: .25 hour per day Patient and/or Family Agrees t: Yes Safety Risks/Education Patient Education: Transfer Techniques, Safety Issues Teaching Recipient: Patient Teaching Methods: Discussion Response to Teaching: Reinforcement Needed Time/GCodes Time In: 1000 Time Out: 1025 Total Billed Treatment Time: 25 Total Billed Treatment visit FA 25 RAUL LEE PT Jul 02, 2020 12:42
[2020-07-02] MEDS: REMDESIVIR INJ 100 MG in NS (IVPB) 230 ML IV SCH (13:46)
[2020-07-02] MEDS: ENOXAPARIN 40 MG/0.4 ML (LOVENOX) SYR SQ SCH (17:43)
[2020-07-02 19:57] VITALS: BP 105/64
[2020-07-02] MEDS: CLOBAZAM 10 MG PEG SCH ×3 (20:53→20:55)
[2020-07-03] VITALS (8 sets, daily range): BP systolic 104–127; BP diastolic 68–87
[2020-07-03] MEDS: RT-ALBUTEROL INHALER HFA (VENTOLIN HFA) 18 GM IH SCH ×4 (02:25→19:03)
[2020-07-03] MEDS: LEVOTHYROXINE 50 MCG (LEVOTHROID) TAB PO SCH (05:40)
[2020-07-03] MEDS: PHENYTOIN ORAL SUSPENSION 125 MG/5 ML UDC PO SCH (08:35)
[2020-07-03] MEDS: VALPROIC ACID SYRUP 250 MG/5 ML UDC PO SCH (08:35)
[2020-07-03] MEDS: RIFAXIMIN 550 MG TABLET (XIFAXAN) PO SCH ×2 (08:35→21:31)
[2020-07-03] MEDS: CLOBAZAM 10 MG PEG SCH (08:36)
[2020-07-03 08:40] LABS: ALANINE AMINOTRANSFERASE 59 U/L (0-55); ALBUMIN 3.1 GM/DL (3.2-4.5); ALKALINE PHOSPHATASE 84 U/L (40-136); BILIRUBIN,TOTAL 0.5 MG/DL (0.1-1.0); BUN/CREATININE RATIO 16; CALCIUM 8.4 MG/DL (8.5-10.1); CARBON DIOXIDE 26 MMOL/L (21-32); CHLORIDE 106 MMOL/L (98-107); CREATININE SERUM 0.76 MG/DL (0.60-1.30); GFR ESTIMATED > 60; GLUCOSE 95 MG/DL (70-105); POTASSIUM 4.9 MMOL/L (3.6-5.0); SODIUM 143 MMOL/L (135-145); TOTAL PROTEIN 5.8 GM/DL (6.4-8.2)
--- NOTE | 2020-07-03 13:00 | NUR ---
At 1245 this RN entered patient's room to deliver lunch tray. Patient was sitting up in bed talking to RN then experienced a seizure. This RN lowered head of bed, rolled patient to their side, and hit the staff assist light. Seizure lasted approximately a minute to a minute and a half. Patient then became arousable to name again. VS taken and WNL. Oxygen at 5L via NC. Side rails up x4 and padded. Suction at bedside. Will continue to monitor.
--- NOTE | 2020-07-03 13:32 | Progress Note - Hospitalist ---
Subjective HPI/CC On Admission Date Seen by Provider: Jul 03, 2020 Time Seen by Provider: 13:24 Pt is a 60yoCM with a PMH of intellectual disability who was brought to the hospital due to known COVID19 diagnosis with worsening symptoms. His symptoms started a few days ago and he was seen in the ER two days ago and diagnosed with COVID19 then. He developed hypoxia at home as low as 84% and was confused and uncooperative with care. He was also febrile at 103.8. He is unable to tell me much of this history but he does state that he is feeling better this morning. I called and spoke with his dad as well who confirms above story. He is currently on 4lpm NC. Subjective/Events-last exam Pt had had a seizure prior to when I entered the room. Was awake and speaking but seemed relatively alert for being post ictal. otherwise no events overnight. Bed being padded for precautions while I was in there. Objective Exam Vital Signs Vital Signs Date Time Temp Pulse Resp B/P (MAP) Pulse Ox O2 Delivery O2 Flow Rate FiO2 07/03/20 08:58 95 Nasal Cannula 5.00 07/03/20 08:00 36.0 91 18 127/74 (91) Capillary Refill : Less Than 3 SecondsLess Than 3 Seconds General Appearance: No Apparent Distress, Chronically ill Respiratory: Lungs Clear, No Respiratory Distress Cardiovascular: Regular Rate, Rhythm, No Murmur Neurologic/Psychiatric: Alert Results/Procedures Lab Laboratory Tests 07/03/20 08:10 Patient resulted labs reviewed. Imaging: Reviewed Imaging Report Assessment/Plan Assessment and Plan Assess & Plan/Chief Complaint Acute Hypoxic Respiratory Failure due to COVID19 Continue Decadron and Remdesivir s/p 1 unit convalescent plasma Lovenox MAT protocol IS Wean oxygen as able, stable right now Continue Rocephin and Azithromycin Attempt to wean oxygen Intellectual Disability Seizure disorder Continue home meds Had 1 seizure this morning If recurs will adjust meds Check valproic acid and phenytion level DVT ppx: Lovenox Diagnosis/Problems Diagnosis/Problems (1) Intellectual disability (2) Seizure disorder (3) Acute respiratory failure (4) COVID-19 Status: Acute Clinical Quality Measures DVT/VTE Risk/Contraindication: Risk Factor Score Per Nursin RFS Level Per Nursing on Admit: 4+=Very High BINU MARCUM MD Jul 03, 2020 13:32
--- NOTE | 2020-07-03 15:00 | NUR ---
Patient currently resting in bed with eyes closed. Arousable to name but very fatigued.
--- NOTE | 2020-07-03 17:25 | NUR ---
This RN was notified by Ramesh BLAKE at this time that upon entering patient room to pass dinner tray patient appeared not feeling well or as alert and oriented as he had been when she had taken care of him yesterday. Upon assessment right upper extremity environmental health specialist were weaker than left, lower right extremity flaccid, and speech was slightly slurred. NIH score [address] Kennedy was notified at 1739 and telephone orders received to get head CT without contrast and transfer patient to ICU. At 1747 prior to taking patient for head CT patient had seizure lasting approximately 1 minute. 1 gram Ativan administered IM to right ventrogluteal site. Patient transfered to radiology for head CT. 1800 Arrived to ICU2 with patient. Beside report given to LOU Rodgers. At 1811 while still at bedside patient had another seizure last aproximately 1.5 minutes. Care transfered to Ana Maria at this time.
--- NOTE | 2020-07-03 17:30 | NUR ---
Upon entering patients room to give patient his dinner tray I notice patients words are slurred. Patient is weak and fatigued. I check patients pupils that were ERRL. Check bilateral lead oracle developer. Right hand much weaker and drifting. Right foot drop. Notify Bulmaro BLAKE at this time that something is not right with this patient and that I think we should call a rapid response at this time. Bulmaro BLAKE enters patients room at approximately 1734 to assess as this RN continues to assess and comfort patient. Stephanie BLAKE arrives in patient room and begins her assessment as well. Patient vitals stable at this time. Patient begins to seize, rolled on right side. Bulmaro BLAKE administered Lorazepam IM. Patient taken up to ICU.
[2020-07-03] MEDS: LORazepam INJ 2 MG/ML (ATIVAN) VIAL IV PRN (17:46)
[2020-07-03] MEDS ORDERED: LEVETIRACETAM INJECTION 1,000 MG in NS (IVPB) 100 ML IV STA (18:12)
--- NOTE | 2020-07-03 18:14 | Diagnostic Imaging Report ---
PROCEDURE: CT head w/o, r/o stroke. TECHNIQUE: Multiple contiguous axial images were obtained through the brain without the use of intravenous contrast. Auto Exposure Controls were utilized during the CT exam to meet ALARA standards for radiation dose reduction. INDICATION: Right-sided weakness. Aphasia and seizures. Evaluate for stroke. History of prior traumatic brain injury. COMPARISON: CT of the head from October 29, 2018. FINDINGS: There are previous operative changes of a left-sided craniotomy. There is extensive encephalomalacia demonstrated within the left anterior temporal lobe and the left frontal lobe compatible with a prior closed head injury. This is unchanged from the prior exam. There is stable ex vacuo dilatation of the left lateral ventricle. There are no findings of mass effect or shift. There is no hemorrhage. There is no evidence of new territorial loss of valente-white differentiation. The posterior fossa demonstrates advanced volume loss. There is no acute posterior fossa abnormality. There is atherosclerotic opacification within the vessels at the skull base but no finding of a focal hyperdense blood vessel. The mastoid air cells appear clear. The paranasal sinuses clear. The orbital contents unremarkable. IMPRESSION: 1. Previous operative changes of left frontal craniotomy with stable remote encephalomalacia within the left frontal lobe and anterior left temporal lobe. 2. No findings of new loss of valente-white differentiation by CT. 3. No hemorrhage or mass effect. There is no hydrocephalus. There is stable ex vacuo dilatation of the left lateral ventricle. 4. Advanced posterior fossa volume loss. 5. No finding of a focal hyperdense blood vessel. Dictated by: Dictated on workstation # [id number]
[2020-07-03] MEDS ORDERED: NS (IVPB) 0 ML ONE (18:20)
[2020-07-03] MEDS ORDERED: LEVETIRACETAM 500 MG/5 ML (KEPPRA) VIAL IV ONE ×2 (18:23→18:24)
[2020-07-03] MEDS ORDERED: NS (IVPB) 100 ML ONE (18:25)
[2020-07-03] MEDS: ENOXAPARIN 40 MG/0.4 ML (LOVENOX) SYR SQ SCH (18:40)
[2020-07-03] MEDS ORDERED: HOLD METFORMIN - RECEIVED CONTRAST 20 ML VIAL IV SCH (18:45)
[2020-07-03] MEDS ORDERED: NS 100 ML (IVPB) BAG IV ONE (18:45)
[2020-07-03] MEDS ORDERED: IOHEXOL 350 MG/ML 100 ML (OMNIPAQUE 350) VIAL IV ONE (18:45)
--- NOTE | 2020-07-03 18:57 | Progress Note - Hospitalist ---
Progress Note Progress Notes/Assess & Plan Date Seen 07/03/20 Time Seen by Provider: 18:51 Assessment & Plan Called to bedside due to concern regarding right sided weakness. He has suffered a seizure around 1245 today and was sleeping mostly through the afternoon. At 530 it was noticed that he was unable to move his right sided and speech was slurred. CODE STROKE was immediately activated. He was taken to CT scan which was negative for ICH. Just prior to CT he had another seizure that aborted with 1mg Ativan. Upon return from CT he had another seizure that self aborted. Images uploaded to [facility]. I spoke with Dr Palma, stroke neurology, at 1820 regarding his case. Due to timing he is not a candidate for TPA. Recommends CTA of head and neck to evaluate for large vessel occlusion but does not think he will be a candidate for intervention. He also recommended trialling 2mg of ativan to see if the paralysis was secondary to his seizure and postictal status. This was ordered. I have also ordered 1g a of Keppra IV stat. I called and discussed the case with [facility] as well. I also called and updated his dad who is his guardian of all of this as well and all questions answered to the bet of my ability. Critical Care Critically Ill Patient Critical Care Start Date: Jul 03, 2020 Critical Care Start Time: 18:12 Stop date: Jul 03, 2020 Stop Time: 18:57 Diagnosis/Problems Diagnosis/Problems (1) Intellectual disability (2) Seizure disorder (3) Acute respiratory failure (4) COVID-19 Status: Acute BINU MARCUM MD Jul 03, 2020 18:57
--- NOTE | 2020-07-03 19:46 | Diagnostic Imaging Report ---
PROCEDURE: CT angiography of the head and CT angiography of the neck with and without contrast. TECHNIQUE: Contiguous noncontrast images were obtained from the skull base through the vertex. After intravenous contrast administration, helical CT angiography of the neck was performed. Source data was reformatted into 3D MIP projections. Delayed post contrast acquisition was also obtained. Auto Exposure Controls were utilized during the CT exam to meet ALARA standards for radiation dose reduction. INDICATION: Evaluate for stroke. History of traumatic brain injury. Right-sided deficits. COMPARISON: Prior CT from earlier the same day. FINDINGS: There is no significant stenosis of the origins of the great vessels arising from the aortic arch. The common carotid arteries demonstrate no significant stenosis or dissection. There is no stenosis at the carotid bifurcations by NASCET criteria. The cervical segment of the internal carotid arteries appear unremarkable. The origin of the vertebral arteries appears patent. The right vertebral artery is dominant. There is no finding of caliber change to suggest stenosis or dissection. Intracranially, there is normal flow within the intracranial segment of both the internal carotid arteries. The carotid terminus is unremarkable. There is appropriate flow within the M1 segment of both the middle cerebral arteries. There is no M2 branch occlusion evident. The anterior cerebral arteries appear widely patent. In the posterior circulation, both of the vertebral arteries are patent. There are patent bilateral posterior inferior cerebellar arteries. The basilar is unremarkable. There are patent superior cerebellar arteries. Both of the posterior cerebral arteries appear patent. There are no findings of intracranial aneurysm formation. Contrast timing limits assessment of the dural venous sinuses. No pathologic intracranial enhancement is evident. Note is again made of left temporal and left frontal encephalomalacia. Cervical spine demonstrates multilevel degenerative disc disease and facet arthropathy without acute osseous abnormality. There appears to be some chronic wedging of T4 and T5 within the thoracic spine. The soft tissues of the neck demonstrate no acute process. The lung apices demonstrate a right-sided pleural effusion and some patchy apical pulmonary infiltrates. Central pulmonary arteries unremarkable, where visualized. IMPRESSION: 1. No CT angiographic evidence of intracranial large vessel occlusion or high-grade stenosis. 2. No finding of aneurysm formation. 3. No pathologic enhancement evident. There is limited assessment of the dural venous sinuses due to contrast timing. 4. Advanced left frontal and left temporal lobe encephalomalacia. 5. No significant stenosis or dissection within the neck. 6. Cervical degenerative disc disease with chronic appearing wedging of the T4 and T5 vertebral bodies within the thoracic spine. No acute osseous abnormality evident. 7. Right-sided pleural effusion with patchy apical pulmonary infiltrates. Dictated by: Dictated on workstation # [id number]
--- NOTE | 2020-07-03 19:51 | NUR ---
180 - patient up to unit via bed. 1810 - 3rd seizure begins. 1811 - seizure ends no medication administered at this time. 1813 - mandel placed 1840 - 1G of Keppra hung 184 - 2mg of ativan given per Dr order. 1847 - RN walks into patient room to see the end of another seizure. unknown start time.
[2020-07-03] MEDS ORDERED: LORazepam INJ 2 MG/ML (ATIVAN) VIAL IVP ONE (20:00)
[2020-07-03] MEDS ORDERED: D5W IV SCH (21:00)
[2020-07-03] MEDS ORDERED: PHENYTOIN 250 MG/5 ML INJ (DILANTIN) VIAL IV SCH (21:00)
[2020-07-03] MEDS ORDERED: VALPROATE IV SCH (21:00)
--- NOTE | 2020-07-03 21:28 | NUR ---
This leader writer spoke with Dr Kennedy via telephone at this time to clarify home medication Valporic Acid dose. Home dose 250mg/5ml = 1250mg BID. Order to continue this home medication. Confirmed with pharmacy as well ([facility])
[2020-07-03] MEDS ORDERED: NS (IVPB) 50 ML ONE ×2 (22:05→23:27)
--- NOTE | 2020-07-03 23:09 | NUR ---
T.O. from Manpreet Domínguez MD ICU at this time with ai to administer 1.5gm loading dose Valporic Acid. [facility] notified.
[2020-07-03] MEDS ORDERED: VALPROATE SOD 500 MG/5 ML ONE (23:11)
--- NOTE | 2020-07-03 23:30 | NUR ---
Upon assessment at this time patient NIH 3, patient alert to name and location. Patient pattern changer on the right only slightly weaker than the left, right leg only slightly weaker than the left. Patient found to have clear speech and following all commands asked of him. Patient has no recollection of today's events when questioned.
[2020-07-04] VITALS (26 sets, daily range): BP systolic 86–115; BP diastolic 59–79
[2020-07-04] MEDS ORDERED: VALPROATE IV SCH ×4
[2020-07-04] MEDS ORDERED: NS IV SCH ×2
[2020-07-04] MEDS ORDERED: D5W IV SCH ×2
[2020-07-04] MEDS: RT-ALBUTEROL INHALER HFA (VENTOLIN HFA) 18 GM IH SCH ×3 (03:16→21:31)
[2020-07-04 03:24] LABS: BASOPHILS % (AUTO) 0 % (0-10); EOSINOPHILS # (AUTO) 0.1 10^3/uL (0.0-0.3); EOSINOPHILS % (AUTO) 1 % (0-10); HEMATOCRIT 38 % (40-54); HEMOGLOBIN 12.9 g/dL (13.3-17.7); LYMPHOCYTES # (AUTO) 3.1 10^3/uL (1.0-4.0); LYMPHOCYTES % (AUTO) 28 % (12-44); MEAN CORPUSCULAR HEMOGLOBIN 32 pg (25-34); MEAN CORPUSCULAR HGB CONC 34 g/dL (32-36); MEAN CORPUSCULAR VOLUME 95 fL (80-99); MEAN PLATELET VOLUME 8.6 fL (9.0-12.2); MONOCYTES # (AUTO) 1.3 10^3/uL (0.0-1.0); MONOCYTES % (AUTO) 12 % (0-12); NEUTROPHILS # (AUTO) 6.1 10^3/uL (1.8-7.8); NEUTROPHILS % (AUTO) 56 % (42-75); PLATELET COUNT 272 10^3/uL (130-400); WHITE BLOOD COUNT 10.8 10^3/uL (4.3-11.0)
[2020-07-04 03:38] LABS: CHLORIDE 105 MMOL/L (98-107); POTASSIUM 3.9 MMOL/L (3.6-5.0); SODIUM 142 MMOL/L (135-145)
[2020-07-04 03:39] LABS: CALCIUM 7.9 MG/DL (8.5-10.1)
[2020-07-04 03:40] LABS: GLUCOSE 74 MG/DL (70-105)
[2020-07-04 03:41] LABS: CARBON DIOXIDE 23 MMOL/L (21-32)
[2020-07-04 03:43] LABS: CREATININE SERUM 0.72 MG/DL (0.60-1.30); GFR ESTIMATED > 60; PHOSPHORUS 4.3 MG/DL (2.3-4.7)
[2020-07-04 03:44] LABS: BUN/CREATININE RATIO 17
[2020-07-04 03:46] LABS: MAGNESIUM 2.1 MG/DL (1.6-2.4)
--- NOTE | 2020-07-04 04:00 | Pulmonary Consultation ---
MAKSIM EDDY,MED STUDENT 07/04/20 0400: History of Present Illness History of Present Illness Date Seen by Provider: Jul 04, 2020 Time Seen by Provider: 03:30 History of Present Illness Patient is a 60yo male with a PMH of intellectual disability and seizure disorder presented to [facility] ED due to worsening symptoms of COVID-19. He was seen and diagnosed on 06/25 and was stable at that time, and was also started on abx for possible PNA. On presentation his caregiver stated that he had become confused and disoriented. He was found to be hypoxic in the ED with SpO2 at 84% on room air. He was also febrile with a temperature of 103.8. He was admitted to the floor and was doing well until yesterday, when he suffered a seizure. He was then noted to have some right-sided weakness and slurred speech. He was immediately taken to CT scan, which was negative for ICH. He had a second seizure on the way to CT, and was given 1mg Ativan. Stroke neurology at was consulted, and it was determined he was not a candidate for TPA. A CTA was recommended, and this did not show any large vessel occlusion or stenosis. 2mg of Ativan and 1g IV Keppra were administered with the possibility that the weakness and slurred speech could be due to his seizures and postictal status. Overnight he had no further seizure activity, and no muscle strength deficits are noted. Allergies and Home Medications Allergies Coded Allergies: No Known Drug Allergies (Unverified , 07/26/09) Home Medications Azithromycin 250 Mg Tablet, 250 MG PEG DAILY, (Reported) FILLED 06-26-2020 #4/4 DAY SUPPLY Clobazam 10 Mg Tablet, 10 MG PEG BID, (Reported) Lactulose 10 Gm/15 Ml Solution, 15 ML PEG BID, (Reported) Levothyroxine Sodium 50 Mcg Tablet, 50 MCG PEG DAILY, (Reported) Phenytoin 125 Mg/5 Ml Oral.susp, 5 ML PEG BID, (Reported) Rifaximin 550 Mg Tablet, 550 MG PEG BID, (Reported) Valproic Acid (As Sodium Salt) 250 Mg/5 Ml Solution, 25 ML PEG BID, (Reported) Past Rlbqjej-Lxhkir-Gvxqxr Hx Past Med/Social Hx: Reviewed Nursing Past Med/Soc Hx Patient Social History Alcohol Use: Denies Use Recreational Drug Use: No Smoking Status: Never a Smoker 2nd Hand Smoke Exposure: No Recent Foreign Travel: No Contact w/Someone Who Travel: No Recent Infectious Disease Expo: No Recent Hopitalizations: No Physical Abuse: No Sexual Abuse: No Immunizations Up To Date Tetanus Booster (TDap): Unknown Seasonal Allergies Seasonal Allergies: No Past Medical History Surgeries: Yes (OSTOMY BAG PLACED 2011) Bowel Surgery Respiratory: No Cardiac: No Neurological: Yes (Intellectual disability) Paralysis, Seizure Disorder Genitourinary: No Gastrointestinal: Yes (HAS OSTOMY BAG) Musculoskeletal: No Endocrine: Yes Hypothyroidsim HEENT: No Cancer: No Psychosocial: No Integumentary: No Blood Disorders: No Sepsis Event Evaluation Height, Weight, BMI Height: 5'11.00" Weight: 185lbs. oz. 83.101123oy; 27.68 BMI Method:Estimated Exam Exam Vital Signs Date Time Temp Pulse Resp B/P (MAP) Pulse Ox O2 Delivery O2 Flow Rate FiO2 07/04/20 03:17 95 Nasal Cannula 2.00 07/03/20 23:40 36.8 High Flow N/C 4.00 07/03/20 22:00 79 20 106/73 (84) 98 High Flow N/C 4.00 07/03/20 21:00 78 18 105/72 (83) 98 High Flow N/C 4.00 07/03/20 20:20 94 High Flow N/C 4.00 07/03/20 20:00 80 17 112/68 (83) 96 High Flow N/C 4.00 07/03/20 19:50 36.9 High Flow N/C 4.00 07/03/20 19:15 84 18 112/72 (85) 98 Nasal Cannula 2.00 07/03/20 19:13 86 07/03/20 19:03 94 Nasal Cannula 1.00 07/03/20 18:34 90 17 122/80 96 07/03/20 18:33 92 07/03/20 18:00 85 124/87 (99) Nasal Cannula 2.00 07/03/20 14:55 99 Nasal Cannula 2.00 07/03/20 08:58 95 Nasal Cannula 5.00 07/03/20 08:00 Nasal Cannula 4.00 07/03/20 08:00 36.0 91 18 127/74 (91) 97 Nasal Cannula 5.00 I & O 07/04/20 07:00 Intake Total 335 ml Output Total 350 ml Balance -15 ml Height & Weight Height: 5'11.00" Weight: 185lbs. oz. 83.764373dt; 27.68 BMI Method:Estimated General Appearance: No Apparent Distress, Chronically ill HEENT: PERRL/EOMI, Moist Mucous Membranes Neck: Normal Inspection, Supple Respiratory: Lungs Clear, No Respiratory Distress Cardiovascular: Regular Rate, Rhythm, No Murmur Capillary Refill: Less Than 3 Seconds Extremity: Normal Capillary Refill, No Calf Tenderness, No Pedal Edema Neurologic/Psychiatric: Alert Skin: Normal Color, Warm/Dry Results Lab Laboratory Tests 07/02/20 06:10 07/03/20 08:10 07/04/20 02:35 PATI ROSALES DO 07/04/20 0504: Allergies and Home Medications Allergies Coded Allergies: No Known Drug Allergies (Unverified , 07/26/09) Home Medications Azithromycin 250 Mg Tablet, 250 MG PEG DAILY, (Reported) FILLED 06-26-2020 #4/4 DAY SUPPLY Clobazam 10 Mg Tablet, 10 MG PEG BID, (Reported) Lactulose 10 Gm/15 Ml Solution, 15 ML PEG BID, (Reported) Levothyroxine Sodium 50 Mcg Tablet, 50 MCG PEG DAILY, (Reported) Phenytoin 125 Mg/5 Ml Oral.susp, 5 ML PEG BID, (Reported) Rifaximin 550 Mg Tablet, 550 MG PEG BID, (Reported) Valproic Acid (As Sodium Salt) 250 Mg/5 Ml Solution, 25 ML PEG BID, (Reported) Review of Systems Time Seen by Provider: 05:02 Assessment/Plan Assessment/Plan Acute Hypoxic Respiratory Failure due to COVID19 Continue Decadron and Remdesivir s/p 1 unit convalescent plasma Lovenox MAT protocol IS Wean oxygen as able, stable right now Continue Rocephin and Azithromycin Attempt to wean oxygen S/p acute seizure with now resolved right sided paralysis -Last seizure was 07/03 -NIH is now 3 -S/p CT of head -Dr. Kennedy discussed with neurology no intervention needed Intellectual Disability Seizure disorder Continue home meds Had 1 seizure this morning If recurs will adjust meds Check valproic acid and phenytion level DVT ppx: Lovenox MAKSIM EDDY MED STUDENT Jul 04, 2020 04:00 PATI ROSALES DO Jul 04, 2020 05:04
--- NOTE | 2020-07-04 05:44 | NUR ---
No seizure activity this night. Patient alert to person, place. Patient talking to this editorial writer. Moving all extremities. Slight facial droop on the right noted. Featheredger And Reducer Machine equal and strong bilaterally.
[2020-07-04] MEDS: LEVOTHYROXINE 50 MCG (LEVOTHROID) TAB PO SCH (05:49)
[2020-07-04] MEDS ORDERED: KCL 20 MEQ TAB (K-DUR) PO SCH (06:00)
[2020-07-04] MEDS ORDERED: POTASSIUM CL 10MEQ/50ML IVPB 50 ML IV SCH (06:00)
[2020-07-04] MEDS ORDERED: MAGNESIUM 1 GM/100 ML IVPB 100 ML IV SCH (06:00)
[2020-07-04] MEDS: VALPROATE IV SCH ×2 (07:07→11:19)
[2020-07-04] MEDS: D5W IV SCH ×2 (07:07→11:19)
--- NOTE | 2020-07-04 07:35 | Diagnostic Imaging Report ---
INDICATION: COVID pneumonia. Shortness of air. Followup. COMPARISON: 06/27/2020 FINDINGS: Single frontal radiographic view of the chest was obtained and demonstrates stable cardiac silhouette and pulmonary vasculature. Left-sided neurostimulator device is noted. Lungs show hazy opacification of the right base, but are otherwise clear. There is no large effusion on the left. No pneumothorax is seen on either side. Osseous structures show no gross acute abnormalities IMPRESSION:. Hazy opacification of the right base. This may be artifact related to overlying soft tissue attenuation. Underlying effusion may have a similar appearance. Correlation with lateral view may be of benefit. Dictated by: Dictated on workstation # [id number]
[2020-07-04] MEDS: RIFAXIMIN 550 MG TABLET (XIFAXAN) PO SCH ×2 (10:28→23:35)
[2020-07-04] MEDS: PHENYTOIN IV SCH ×6 (10:36→23:34)
[2020-07-04] MEDS: SODIUM CHLORIDE IV SCH ×6 (10:36→23:34)
--- NOTE | 2020-07-04 11:12 | Physical Therapy Progress Note ---
Therapy Progress Note Consulted with RN. Patient has had 2 more seizures this a.m. No new orders at this time per RN. Will continue to monitor patient status. JASMIN COPELAND PT Jul 04, 2020 11:12
[2020-07-04] MEDS: LEVETIRACETAM INJECTION 1,000 MG in NS (IVPB) 100 ML IV SCH ×2 (12:28→21:40)
--- NOTE | 2020-07-04 12:28 | NUR ---
Housekeeping reports possible seizure like activity, this RN did not witness. 1003 patient begins to seize 1004 seizure has ended no medication was given. Dr Coleman notified. Orders received. Patient is post ictal but is not aphasic, able to carry conversation. Right side of body is still weaker.
[2020-07-04] MEDS: CLOBAZAM 10 MG PO SCH ×2 (14:30→23:35)
[2020-07-04] MEDS: ENOXAPARIN 40 MG/0.4 ML (LOVENOX) SYR SQ SCH (17:55)
--- NOTE | 2020-07-04 19:54 | NUR ---
Patient began to have another seizure. Witnessed by this RN. Starting at 1855 lasting for approximately 45 seconds. No medication was administered at this time.
[2020-07-04] MEDS: VALPROIC ACID SYRUP 250 MG/5 ML UDC PO SCH (23:35)
[2020-07-05] VITALS (20 sets, daily range): BP systolic 86–123; BP diastolic 53–82
[2020-07-05 03:18] LABS: BASOPHILS % (AUTO) 0 % (0-10); EOSINOPHILS % (AUTO) 0 % (0-10); HEMATOCRIT 41 % (40-54); LYMPHOCYTES # (AUTO) 2.8 10^3/uL (1.0-4.0); LYMPHOCYTES % (AUTO) 27 % (12-44); MEAN CORPUSCULAR HEMOGLOBIN 32 pg (25-34); MEAN CORPUSCULAR HGB CONC 34 g/dL (32-36); MEAN CORPUSCULAR VOLUME 93 fL (80-99); MEAN PLATELET VOLUME 8.7 fL (9.0-12.2); MONOCYTES # (AUTO) 0.8 10^3/uL (0.0-1.0); MONOCYTES % (AUTO) 8 % (0-12); NEUTROPHILS # (AUTO) 6.6 10^3/uL (1.8-7.8); NEUTROPHILS % (AUTO) 63 % (42-75); PLATELET COUNT 305 10^3/uL (130-400); WHITE BLOOD COUNT 10.5 10^3/uL (4.3-11.0)
[2020-07-05 03:36] LABS: CHLORIDE 105 MMOL/L (98-107); POTASSIUM 3.4 MMOL/L (3.6-5.0); SODIUM 144 MMOL/L (135-145)
[2020-07-05 03:37] LABS: CALCIUM 8.3 MG/DL (8.5-10.1); GLUCOSE 95 MG/DL (70-105)
[2020-07-05 03:39] LABS: CARBON DIOXIDE 25 MMOL/L (21-32)
[2020-07-05 03:41] LABS: CREATININE SERUM 0.76 MG/DL (0.60-1.30); GFR ESTIMATED > 60; PHOSPHORUS 3.3 MG/DL (2.3-4.7)
[2020-07-05 03:42] LABS: BUN/CREATININE RATIO 14
[2020-07-05 03:44] LABS: MAGNESIUM 2.3 MG/DL (1.6-2.4)
--- NOTE | 2020-07-05 04:31 | Pulmonary Progress Note ---
Subjective Time Seen by a Provider: 04:29 Sepsis Event Evaluation Height, Weight, BMI Height: 5'11.00" Weight: 185lbs. oz. 83.187597xc; 27.68 BMI Method:Estimated Exam Exam Vital Signs Date Time Temp Pulse Resp B/P (MAP) Pulse Ox O2 Delivery O2 Flow Rate FiO2 07/05/20 01:00 85 07/04/20 21:31 94 Nasal Cannula 1.00 07/04/20 20:05 36.0 07/04/20 20:00 94 High Flow N/C 4.00 07/04/20 19:00 86 07/04/20 18:49 66 16 100/69 97 07/04/20 18:00 81 15 92/69 (77) 96 High Flow N/C 2.00 07/04/20 17:00 81 16 93/68 (76) 96 High Flow N/C 2.00 07/04/20 16:35 36.0 07/04/20 16:00 81 16 93/68 (76) 96 High Flow N/C 2.00 07/04/20 15:00 67 18 90/65 (73) 96 High Flow N/C 2.00 07/04/20 14:00 71 21 86/59 (68) 96 High Flow N/C 2.00 07/04/20 13:00 76 19 91/66 (74) 95 High Flow N/C 2.00 07/04/20 12:32 76 07/04/20 12:00 76 17 91/66 (74) 96 High Flow N/C 2.00 07/04/20 11:00 81 17 100/70 (80) 95 High Flow N/C 2.00 07/04/20 10:00 79 14 105/73 (84) 93 High Flow N/C 2.00 07/04/20 09:27 36.6 91 93 07/04/20 09:00 84 16 105/68 (80) 94 High Flow N/C 2.00 07/04/20 08:00 81 8 95/65 (75) 97 High Flow N/C 2.00 07/04/20 08:00 94 High Flow N/C 4.00 07/04/20 07:00 86 15 103/66 (78) 94 High Flow N/C 2.00 07/04/20 06:38 85 07/04/20 06:25 93 Nasal Cannula 1.00 07/04/20 06:00 91 19 115/78 (90) 96 High Flow N/C 2.00 07/04/20 05:33 84 19 108/78 (88) 96 High Flow N/C 2.00 I & O 07/05/20 07:00 Intake Total 275 ml Output Total 1090 ml Balance -815 ml Height & Weight Height: 5'11.00" Weight: 185lbs. oz. 83.375047wz; 27.68 BMI Method:Estimated General Appearance: No Apparent Distress, Chronically ill HEENT: PERRL/EOMI, Moist Mucous Membranes Neck: Normal Inspection, Supple Respiratory: Lungs Clear, No Respiratory Distress Cardiovascular: Regular Rate, Rhythm, No Murmur Capillary Refill: Less Than 3 Seconds Extremity: Normal Capillary Refill, No Calf Tenderness, No Pedal Edema Neurologic/Psychiatric: Alert Skin: Normal Color, Warm/Dry Results Lab Laboratory Tests 07/03/20 08:10 07/04/20 02:35 07/05/20 02:30 Assessment/Plan Assessment/Plan Acute Hypoxic Respiratory Failure due to COVID19 Continue Decadron and Remdesivir s/p 1 unit convalescent plasma Lovenox MAT protocol IS Wean oxygen as able, stable right now Continue Rocephin and Azithromycin Attempt to wean oxygen S/p acute seizure with now resolved right sided paralysis -Pt had 4 seizures yesterday -Keppra 1gm BID -Valproic acid, Dilantin -S/p CT of head -Dr. Kennedy discussed with [facility] neurology no intervention needed Intellectual Disability Seizure disorder Continue home meds Had 1 seizure this morning DVT ppx: Lovenox PATI ROSALES DO Jul 05, 2020 04:31
[2020-07-05] MEDS: POTASSIUM CL 10MEQ/50ML IVPB 50 ML IV SCH ×4 (06:20→12:22)
--- NOTE | 2020-07-05 07:30 | Diagnostic Imaging Report ---
EXAMINATION: Chest 1 view HISTORY: COVID positive. Shortness of breath. Follow-up. COMPARISON: Chest radiograph on 07/04/2020. FINDINGS: Stable battery pack in the left chest. Hazy opacities in the bilateral lung bases are unchanged. No large pleural effusion or pneumothorax. Stable cardiac silhouette. No acute osseous abnormalities. IMPRESSION: 1. Stable bibasilar hazy opacities. No new focal consolidations. Report was faxed to [facility]/RN Infection Control by marilee at 7:29AM. Dictated by: Dictated on workstation # [id number]
[2020-07-05] MEDS: RT-ALBUTEROL INHALER HFA (VENTOLIN HFA) 18 GM IH SCH ×2 (08:04→16:10)
[2020-07-05] MEDS ORDERED: LACTATED RINGERS 1,000 ML IV ONE (09:40)
[2020-07-05] MEDS ORDERED: LACTATED RINGERS 1,000 ML IV SCH ×2 (09:45→13:15)
[2020-07-05] MEDS: RIFAXIMIN 550 MG TABLET (XIFAXAN) PO SCH ×2 (10:12→20:26)
[2020-07-05] MEDS: CLOBAZAM 10 MG PO SCH ×2 (10:13→20:26)
[2020-07-05] MEDS: VALPROIC ACID SYRUP 250 MG/5 ML UDC PO SCH ×2 (10:15→21:22)
[2020-07-05] MEDS: SODIUM CHLORIDE IV SCH ×6 (10:16→21:58)
[2020-07-05] MEDS: PHENYTOIN IV SCH ×6 (10:16→21:58)
[2020-07-05] MEDS: LEVOTHYROXINE 50 MCG (LEVOTHROID) TAB PO SCH (10:17)
[2020-07-05] MEDS: LEVETIRACETAM INJECTION 1,000 MG in NS (IVPB) 100 ML IV SCH ×2 (10:20→21:14)
--- NOTE | 2020-07-05 12:08 | Physical Therapy Daily Note ---
PT Daily Note-Current Subjective Patient is in bed and alert. Not as verbal on this date. Mental Status Patient Orientation: Confused (TBI) Attachments: Oxygen, Miller Catheter, IV Transfers SCALE: Activities may be completed with or without assistive devices. 5-Rrnuyonqpf-ugnloyc completes the activity by him/herself with no assistance from a helper. 5-Set-up or Clean-up Assistance-helper sets up or cleans up; patient completes activity. Hudson assists only prior to or following the activity. 4-Supervision or Touching Assistance-helper provides verbal cues and/or touching/steadying and/or contact guard assistance as patient completes activity. Assistance may be provided throughout the activity or intermittently. 3-Partial/Moderate Assistance-helper does LESS THAN HALF the effort. Hudson lifts, holds or supports trunk or limbs, but provides less than half the effort. 2-Substantial/Maximal Assistance-helper does MORE THAN HALF the effort. Hudson lifts or holds trunk or limbs and provides more than half the effort. 8-Xazmmvftd-bsjmvj does ALL the effort. Patient does none of the effort to complete the activity. Or, the assistance of 2 or more helpers is required for the patient to complete the activity. If activity was not attempted, code reason: 7-Patient Refused. 9-Not Applicable-not attempted and the patient did not perform the activity before the current illness, exacerbation or injury. 10-Not Attempted due to Environmental Limitations-(lack of equipment, weather restraints, etc.). 88-Not Attempted due to Medical Conditions or Safety Concerns. Lying to Sitting/Side of Bed(Q: 2 Sit to Stand (QC): 2 Chair/Tmm-dv-Evdxg Xfer(QC): 2 (to left due to right LE and UE weakness) Gait Training Does the Patient Walk?: No and Walking Goal IS indicated Exercises Seated Therapy Exercises: Ankle pumps, Long arc quads, Hip flexion Seated Reps: 12 Treatments right LE 3-/5 grossly all planes/left LE 3/5 grossly all planes Assessment Patient reevaled on this date and PT will continue to address all goals. PT Roundhouse Supervisor Goals Roundhouse Supervisor Goals PT Roundhouse Supervisor Goals Time Frame: Jul 23, 2020 Sit to Lying (QC): 6 Lying-Sitting on Side/Bed(QC): 6 Sit to Stand (QC): 6 Chair/Wza-jw-Eucjv Xfer(QC): 6 Walk 50ft with 2 Turns (QC): 6 PT Plan Treatment/Plan Treatment Plan: Continue Plan of Care Treatment Plan: Bed Mobility, Education, Functional Activity Willian, Functional Strength, Gait, Safety, Therapeutic Exercise, Transfers Treatment Duration: Jul 23, 2020 Frequency: 6 times per week Estimated Hrs Per Day: .25 hour per day Patient and/or Family Agrees t: Yes Time/GCodes Time In: 1015 Time Out: 1032 Total Billed Treatment Time: 17 Total Billed Treatment 1 visit ReEval 17 min JASMIN COPELAND PT Jul 05, 2020 12:08
--- NOTE | 2020-07-05 14:24 | Occupational Therapy Eval ---
OT Evaluation-General/PLF Medical Diagnosis Admission Date Jun 27, 2020 at 19:04 Medical Diagnosis: COVID; AMA Onset Date: Jun 30, 2020 Therapy Diagnosis Therapy Diagnosis: Weakness Height/Weight Height (Feet): 5 Height (Inches): 11.00 Weight (Pounds): 185 Precautions Precautions/Isolations: Airborne Isolation, Contact Isolation, Droplet Isolation, Seizure, Fall Prevention Referral Physician: Brent Referral Reason: Activity Tolerance, Evaluation/Treatment, Strengthening/ROM Medical History Pertinent Medical History: TBI Additional Medical History Seizure disorder, intellectual disability s/p TBI Reviewed History: Yes Social History Home: Single Level ADL-Prior Level of Function SCALE: Activities may be completed with or without assistive devices. 7-Alpdnycbop-yzmpnvl completes the activity by him/herself with no assistance from a helper. 5-Set-up or Clean-up Assistance-helper sets up or cleans up; patient completes activity. [place] assists only prior to or following the activity. 4-Supervision or Touching Assistance-helper provides verbal cues and/or touching/steadying and/or contact guard assistance as patient completes activity. Assistance may be provided throughout the activity or intermittently. 3-Partial/Moderate Assistance-helper does LESS THAN HALF the effort. [place] lifts, holds or supports trunk or limbs, but provides less than half the effort. 2-Substantial/Maximal Assistance-helper does MORE THAN HALF the effort. [place] lifts or holds trunk or limbs and provides more than half the effort. 7-Nmtuvqdmm-clvdfs does ALL the effort. Patient does none of the effort to co mplete the activity. Or, the assistance of 2 or more helpers is required for the patient to complete the activity. If activity was not attempted, code reason: 7-Patient Refused. 9-Not Applicable-not attempted and the patient did not perform the activity before the current illness, exacerbation or injury. 10-Not Attempted due to Environmental Limitations-(lack of equipment, weather restraints, etc.). 88-Not Attempted due to Medical Conditions or Safety Concerns. ADL PLOF Comments It is not known to this therapist at this time what pt's prior level is. Pt. laughs and smiles with OT, but does not verbalize home set up or previous abilities. Self Care: Needed Some Help Functional Cognition: Needed Some Help OT Current Status Subjective No pain reported. Mental Status/Objective Patient Orientation: Unable to Assess Current Hand Dominance: Right ADL-Treatment Pt. up in chair. He is asleep when OT enters, but does awaken. Pt. interacts only somewhat, and smiles while closing eyes. Pt. is able to follow cues of squeezing OT's hands. OT asks if he would like to wash his face. He states, "yes" but then will not take washcloth. OT washes pt's face and mouth. OT attempts to engage pt., and when joking, pt. will laugh. Pt. does not participate in any other way. OT does ask pt. if he needs anything at this time. He states, "no." All needs met. Pt. with call light and table. OT [employer]rier Goals Retirement Goals Time Frame: Jul 19, 2020 Eating (QC): 4 Oral Hygiene (QC): 3 Upper Body Dressing (QC): 3 Additional Goals: 1-Demonstrate ADL Tasks, 2-Verbalize Understanding, 3- ImproveStrength/Willian 1=Demonstrate adherence to instructed precautions during ADL tasks. 2=Patient will verbalize/demonstrate understanding of assistive devices/modifications for ADL. 3=Patient will improve strength/tolerance for activity to enable patient to perform ADL's. OT will obtain more information regarding pt's PLOF. Goals will be updated based on findings. OT Education/Plan Problem List/Assessment Assessment: Decreased Activ Tolerance, Decreased UE Strength, Dependent Transfers, Impaired Cognition, Impaired I ADL's, Impaired Self-Care Skills Discharge Recommendations Plan/Recommendations: Continue POC Therapy Discharge Recommendati: 24 Hour Supervision Treatment Plan/Plan of Care Treatment,Training & Education: Yes Patient would benefit from OT for education, treatment and training to promote independence in ADL's, mobility, safety and/or upper extremity function for ADL's. Plan of Care: ADL Retraining, Functional Mobility, UE Funct Exercise/Act Treatment Duration: Jul 19, 2020 Frequency: 5 times per week Estimated Hrs Per Day: .25 hour per day Agreement: Yes Rehab Potential: Guarded Time/GCodes Start Time: 12:00 Stop Time: 12:15 Total Time Billed (hr/min): 15 Billed Treatment Time 1, BRIANNE NICKALBER OT Jul 05, 2020 14:24
--- NOTE | 2020-07-05 15:23 | NUR ---
"RD ASSESSMENT PMHx: paralysis; seizure disorder; intellectual disability; PT INTERACTION: Note pt is currently in COVID isolation per chart review. Note all diet information for nutrition assessment for LOS is per Ana Maria BLAKE or per chart review. Ana Maria states current appetite appears better. Note pt had been refusing meals, with avg PO intake <50% meals, per chart review. Ana Maria states no issues with n/v/c/d that she is aware of. Note pt has ostomy with last BM on 07/05. Note pt not currently on bowel regimen per chart review. Note unable to determine recent wt hx, per chart review. ABNORMAL NUTRITION-RELATED LAB VALUES LOW: K 3.4; Ca 8.3; HIGH: Est. kcal needs: 3305-0272 kcal | 20-25 kcal/kg Est. Pro needs: 70-87 g Pro | 0.8-1.0 g Pro/kg PES STATEMENT: Inadequate oral intake (NI-2.1) related to loss of appetite, as evidenced by chart review, pt refusing meals, and avg PO intake <50%. INTERVENTION: Continue with current diet order of Regular diet. Pt may benefit from nutrition supplementation if PO intake declines. Will continue to follow and reassess as pt needs, intake, and status change. Nohelia Newton, RD LD [phone] cell"
[2020-07-05] MEDS: ENOXAPARIN 40 MG/0.4 ML (LOVENOX) SYR SQ SCH (17:40)
--- NOTE | 2020-07-05 18:25 | NUR ---
Patient arrived to room at this time. Report received from LOU Rodgers. I agree with previous RN's assessment and will continue to monitor. Patient lying in bed with eyes closed, arousable to name. Suction at bedside, rails up x4 and padded. Telesitter in place to monitor for seizure activity. Call light within reach.
[2020-07-05] MEDS: LORazepam INJ 2 MG/ML (ATIVAN) VIAL IVP PRN (20:18)
--- NOTE | 2020-07-05 20:33 | NUR ---
At 1955, this RN contacted abel as this pts abel was going off. Ilsa reported this pt had another seizure lasting about one minute. PT was given a once PRN dose of ativan 1mL IV at 2029 and is turned to his right side. will continue to monitor and assess pt. Vitals post seizure are Temp-36.4 C, Resperations 18,SPO2-99% on 4 L NC, HR- 88, BP-138/82 , Pain- 0/10. PT airway is clear, no aspiration, and swallowed some water for his pills at 2099.
--- NOTE | 2020-07-05 21:28 | NUR ---
At 2127, this nurse was told by LOU Angeles, [employer] had called and said this pt had another seizure lasting approximately 1 min again at 2109. PTs vital post seizure are T-36.2, SPO2- 97% on 4L NC, RR- 22, BP 112/76, HR 97, and 0/10 pain.
[2020-07-05] MEDS: LORazepam INJ 2 MG/ML (ATIVAN) VIAL IV PRN (23:03)
--- NOTE | 2020-07-05 23:19 | NUR ---
At 2249, this pt had his third seizure for the night, lasting another minute per tellesitter. PT post seizure vitals were BP 86/53, HR 74, 02 at 98% on 4 Liters, Resperations 14, and was not alert to any orientation/unresponsive. Dr. Hyman was notified at 2310 of the situation and said monitor only. Will continue to assess and provide care to pt.
--- NOTE | 2020-07-05 23:33 | NUR ---
LOU Angeles, was on phone with bridger Haro, and was told/notified of the situation when I was assessing pt post seizure.
[2020-07-06] VITALS (12 sets, daily range): BP systolic 103–138; BP diastolic 60–95
[2020-07-06] MEDS: LORazepam INJ 2 MG/ML (ATIVAN) VIAL IV PRN ×2 (00:20→01:13)
--- NOTE | 2020-07-06 00:42 | NUR ---
At 0038, this RN contacted abel as this pts tellesitter was going off. Martinaer reported this pt had a 4th seizure lasting about one minute. PT was given ativan 0.5 mL IV prior to seizure. Vitals post seizure are Temp-36.4 C, Resperations 14,SPO2-99% on 5 L NC, HR- 73, BP-1116/75 , Pain- 0/10. PT airway is clear, no aspiration. pt on right side.
--- NOTE | 2020-07-06 01:19 | NUR ---
At 0112, this RN contacted abel as this pts veenaesielizer was going off. Abel reported this pt had a 5th seizure lasting about 30 seconds. PT was given ativan 0.5 mL IV after to seizure. Vitals post seizure are Temp-36.2 C, Resperations 14,SPO2-100% on 5 L NC, HR- 81, BP-110/71 , Pain- 0/10. PT airway is clear, no aspiration. pt on right side.
--- NOTE | 2020-07-06 01:36 | NUR ---
At 0130, this RN contacted jerad as this pts saeer was going off. Jerad reported this pt had a 6th seizure lasting about 30 seconds. Vitals post seizure are Temp-35.6 C, Resperations 14,SPO2-100% on 5 L NC, HR- 75, BP-106/70 , Pain- 0/10. PT airway is clear, no aspiration. pt on right side.
--- NOTE | 2020-07-06 01:46 | NUR ---
At 0142, this RN contacted jerad as this pts saeer was going off. Jerad reported this pt had a 7th seizure lasting about 30 seconds. Vitals post seizure are Temp-35.8 C, Resperations 14,SPO2-100% on 5 L NC, HR- 78, BP-111/67 , Pain- 0/10. PT airway is clear, no aspiration. pt on right side.
--- NOTE | 2020-07-06 01:55 | NUR ---
At 0142, this RN contacted jerad as this pts saeer was going off. Jerad reported this pt had a 8th seizure lasting about 30 seconds. Vitals post seizure are Temp-35.8 C, Resperations 14,SPO2-100% on 5 L NC, HR- 76, BP-104/61 , Pain- 0/10. PT airway is clear, no aspiration. pt on right side.
[2020-07-06] MEDS: LORazepam INJ 2 MG/ML (ATIVAN) VIAL IVP PRN ×8 (01:59→10:19)
--- NOTE | 2020-07-06 02:03 | NUR ---
At 0142, this RN contacted jerad as this pts saeer was going off. Jerad reported this pt had a 9th seizure lasting about 30 seconds. Vitals post seizure are Temp-36 C, Resperations 14, SPO2-100% on 5 L NC, HR- 70, BP-111/65 , Pain- 0/10. PT airway is clear, no aspiration. pt on right side.
--- NOTE | 2020-07-06 02:19 | NUR ---
At 0142, and 0210, this RN contacted jerad as this pts saeer was going off. Jerad reported this pt had a 10th and 11th seizure lasting about 30-1minute. Vitals post seizure are Temp-35.8 C, Resperations 14, SPO2-100% on 5 L NC, HR- 72, BP-103/65 , Pain- 0/10. PT airway is clear, no aspiration. pt on right side.
--- NOTE | 2020-07-06 02:21 | NUR ---
Dr. Hyman texted/updated at 0214 about pt's seizures and status. Dr hyman then called to talk with nurse and no orders changed at this time.
[2020-07-06] MEDS ORDERED: LEVETIRACETAM INJECTION 1,000 MG in NS (IVPB) 100 ML IV ONE (02:30)
--- NOTE | 2020-07-06 02:35 | NUR ---
PT now has had 3 more seizures, so a total of 14. Vitals now T- 36.0 C, BP 99/62 , HR 76, SPO2 97% on 5 liters NC, RR- 14, 0/10 pain.
--- NOTE | 2020-07-06 02:37 | NUR ---
Dr. Hyman put in order for keppra 1000mg/100mL now at 440mL/hr. Transfusion started
--- NOTE | 2020-07-06 02:40 | NUR ---
PT had 1 more seizure now, so a total of 15. Vitals now T- 36.0 C, BP 108/60 , HR 76, SPO2 97% on 5 liters NC, RR- 14, 0/10 pain.
--- NOTE | 2020-07-06 02:44 | NUR ---
PT had 1 more seizure now, so a total of 16
--- NOTE | 2020-07-06 02:51 | NUR ---
PT had 1 more seizure now, so a total of 17. Vitals T- 36 C, BP 99/61, HR 78, SPO2 99% on 5 L NC, RR 16
--- NOTE | 2020-07-06 02:59 | NUR ---
PT had 1 more seizure now, so a total of 18. Vitals T- 35.8 C, BP 101/57, HR 80, SPO2 98% on 5 L NC, RR 14
--- NOTE | 2020-07-06 03:04 | NUR ---
PT had 1 more seizure now, so a total of 19. Vitals T- 35.8 C, BP 102/55, HR 80, SPO2 97% on 5 L NC, RR 14
--- NOTE | 2020-07-06 03:08 | NUR ---
PT had 1 more seizure now, so a total of 20. Vitals T- 35.8 C, BP 104/55, HR 90, SPO2 98% on 5 L NC, RR 14
--- NOTE | 2020-07-06 03:12 | NUR ---
PT had 1 more seizure now, so a total of 21. Vitals T- 35.4 C, BP 99/57, HR 88, SPO2 96% on 5 L NC, RR 14. Seizures still ranging from 30 seconds-1 minute
--- NOTE | 2020-07-06 03:16 | NUR ---
PT had 1 more seizure now, so a total of 22. Vitals T- 35.4 C, BP 102/74, HR 75, SPO2 97% on 5 L NC, RR 14. Seizures still ranging from 30 seconds-1 minute
--- NOTE | 2020-07-06 03:20 | NUR ---
PT had 1 more seizure now, so a total of 23. Vitals T- 35.4 C, BP 106/57, HR 80, SPO2 96% on 5 L NC, RR 14. Seizures still ranging from 30 seconds-1 minute
--- NOTE | 2020-07-06 03:26 | NUR ---
PT had 1 more seizure now, so a total of 24. Vitals T- 35.8 C, BP 105/57, HR 84, SPO2 96% on 5 L NC, RR 14. Seizures was 1 minute.
--- NOTE | 2020-07-06 03:30 | NUR ---
PT had 1 more seizure now, so a total of 25. Vitals T- 35.8 C, BP 108/55, HR 74, SPO2 97% on 5 L NC, RR 14. Seizures was 1 minute.
--- NOTE | 2020-07-06 03:33 | NUR ---
PT had 1 more seizure now, so a total of 26. Vitals T- 35.8 C, BP 99/57, HR 74, SPO2 97% on 5 L NC, RR 14. Seizures was 30 seconds minute.
--- NOTE | 2020-07-06 03:37 | NUR ---
PT had 1 more seizure now, so a total of 27. Vitals T- 35.8 C, BP 102/66, HR 70, SPO2 97% on 5 L NC, RR 14. Seizures was 30 seconds minute.
--- NOTE | 2020-07-06 03:41 | NUR ---
PT had 1 more seizure now, so a total of 28. Vitals T- 35.8 C, BP 106/72, HR 82, SPO2 98% on 5 L NC, RR 14. Seizures was 30 seconds minute.
--- NOTE | 2020-07-06 03:45 | NUR ---
PT had 1 more seizure now, so a total of 29. Vitals T- 35.8 C, BP 108/70, HR 78, SPO2 98% on 5 L NC, RR 14. Seizures was 30 seconds minute.
--- NOTE | 2020-07-06 03:47 | NUR ---
PT had 1 more seizure now, so a total of 30. Vitals T- 35.8 C, BP 104/66, HR 75, SPO2 98% on 5 L NC, RR 14. Seizures was 30 seconds minute.
--- NOTE | 2020-07-06 03:51 | NUR ---
PT had 1 more seizure now, so a total of 31. Vitals T- 35.8 C, BP 102/74, HR 77, SPO2 98% on 5 L NC, RR 14. Seizures was 30 seconds minute.
--- NOTE | 2020-07-06 03:57 | NUR ---
PT had 1 more seizure now, so a total of 32. Vitals T- 35.8 C, BP 102/54, HR 88, SPO2 98% on 5 L NC, RR 14. Seizures was 30 seconds minute.
--- NOTE | 2020-07-06 04:00 | NUR ---
PT had 1 more seizure now, so a total of 33. Vitals T- 35.8 C, BP 104/57, HR 78, SPO2 98% on 5 L NC, RR 14. Seizures was 30 seconds minute.
--- NOTE | 2020-07-06 04:04 | NUR ---
PT had 1 more seizure now, so a total of 34. Vitals T- 35.8 C, BP 100/68, HR 79, SPO2 98% on 5 L NC, RR 14. Seizures was 30 seconds minute.
--- NOTE | 2020-07-06 04:05 | NUR ---
PT had 1 more seizure now, so a total of 35. Vitals T- 35.8 C, BP 108/70, HR 88, SPO2 98% on 5 L NC, RR 14. Seizures was 30 seconds minute.
--- NOTE | 2020-07-06 04:11 | NUR ---
PT had 1 more seizure now, so a total of 36. Vitals T- 35.8 C, BP 99/68, HR 74, SPO2 98% on 5 L NC, RR 14. Seizures was 30 seconds minute.
--- NOTE | 2020-07-06 04:16 | NUR ---
PT had 1 more seizure now, so a total of 37. Vitals T- 35.8 C, BP 106/75, HR 76, SPO2 98% on 5 L NC, RR 14. Seizures was 30 seconds minute.
--- NOTE | 2020-07-06 04:17 | NUR ---
PT had 1 more seizure now, so a total of 38. Vitals T- 35.8 C, BP 105/60, HR 81, SPO2 98% on 5 L NC, RR 14. Seizures was 30 seconds minute.
--- NOTE | 2020-07-06 04:21 | NUR ---
PT had 1 more seizure now, so a total of 39. Vitals T- 35.8 C, BP 102/54, HR 88, SPO2 98% on 5 L NC, RR 14. Seizures was 30 seconds minute.
--- NOTE | 2020-07-06 04:25 | NUR ---
PT had 1 more seizure now, so a total of 40. Vitals T- 35.8 C, BP 106/54, HR 73, SPO2 98% on 5 L NC, RR 14. Seizures was 30 seconds minute.
--- NOTE | 2020-07-06 04:26 | NUR ---
PT had 1 more seizure now, so a total of 41. Vitals T- 35.8 C, BP 107/57, HR 69, SPO2 97% on 5 L NC, RR 14. Seizures was 30 seconds minute.
--- NOTE | 2020-07-06 04:31 | NUR ---
PT had 1 more seizure now, so a total of 42. Vitals T- 35.8 C, BP 107/60, HR 74, SPO2 97% on 5 L NC, RR 14. Seizures was 30 seconds minute.
--- NOTE | 2020-07-06 04:40 | NUR ---
PT had 1 more seizure now, so a total of 43. Vitals T- 35.8 C, BP 109/66, HR 88, SPO2 98% on 5 L NC, RR 14. Seizures was 30 seconds minute.
--- NOTE | 2020-07-06 04:41 | NUR ---
PT had 1 more seizure now, so a total of 44. Vitals T- 35.8 C, BP 101/59, HR 76, SPO2 98% on 5 L NC, RR 14. Seizures was 30 seconds minute.
--- NOTE | 2020-07-06 04:45 | NUR ---
PT had 1 more seizure now, so a total of 45. Vitals T- 35.8 C, BP 102/60, HR 89, SPO2 98% on 5 L NC, RR 14. Seizures was 30 seconds minute.
--- NOTE | 2020-07-06 04:50 | NUR ---
PT had 1 more seizure now, so a total of 46. Vitals T- 35.8 C, BP 105/67, HR 72, SPO2 98% on 5 L NC, RR 14. Seizures was 30 seconds minute.
--- NOTE | 2020-07-06 04:50 | NUR ---
PT had 1 more seizure now, so a total of 40. Vitals T- 35.8 C, BP 105/67, HR 72, SPO2 98% on 5 L NC, RR 14. Seizures was 30 seconds minute.
--- NOTE | 2020-07-06 04:56 | NUR ---
PT had 1 more seizure now, so a total of 47. Vitals T- 35.8 C, BP 103/57, HR 78, SPO2 96% on 5 L NC, RR 14. Seizures was 30 seconds.
--- NOTE | 2020-07-06 05:00 | NUR ---
PT had 1 more seizure now, so a total of 48. Vitals T- 35.8 C, BP 105/58, HR 77, SPO2 98% on 5 L NC, RR 14. Seizures was 30 seconds.
--- NOTE | 2020-07-06 05:05 | NUR ---
PT had 1 more seizure now, so a total of 49. Vitals T- 35.8 C, BP 100/68, HR 78, SPO2 96% on 5 L NC, RR 14. Seizures was 30 seconds.
--- NOTE | 2020-07-06 05:10 | NUR ---
PT had 1 more seizure now, so a total of 50. Vitals T- 35.8 C, BP 106/57, HR 88, SPO2 96% on 5 L NC, RR 14. Seizures was 15 seconds.
--- NOTE | 2020-07-06 05:13 | NUR ---
PT had 1 more seizure now, so a total of 51. Vitals T- 35.8 C, BP 122/68, HR 90, SPO2 96% on 5 L NC, RR 14. Seizures was 30 seconds.
--- NOTE | 2020-07-06 05:25 | NUR ---
PT had 1 more seizure now, so a total of 52. Vitals T- 35.8 C, BP 111/60, HR 83, SPO2 97% on 5 L NC, RR 14. Seizures was 30 seconds.
--- NOTE | 2020-07-06 05:28 | NUR ---
PT had 1 more seizure now, so a total of 53. Vitals T- 35.8 C, BP 118/62, HR 90, SPO2 96% on 5 L NC, RR 14. Seizures was 30 seconds.
[2020-07-06] MEDS: LEVOTHYROXINE 50 MCG (LEVOTHROID) TAB PO SCH (05:29)
--- NOTE | 2020-07-06 05:32 | NUR ---
PT had 1 more seizure now, so a total of 54. Vitals T- 35.8 C, BP 117/70, HR 81, SPO2 97% on 5 L NC, RR 14. Seizures was 30 seconds.
--- NOTE | 2020-07-06 05:36 | NUR ---
PT had 1 more seizure now, so a total of 55. Vitals T- 35.8 C, BP 115/70, HR 85, SPO2 97% on 5 L NC, RR 14. Seizures was 30 seconds.
[2020-07-06 05:40] LABS: BASOPHILS % (AUTO) 0 % (0-10); EOSINOPHILS % (AUTO) 0 % (0-10); HEMATOCRIT 38 % (40-54); HEMOGLOBIN 13.1 g/dL (13.3-17.7); LYMPHOCYTES # (AUTO) 2.9 10^3/uL (1.0-4.0); LYMPHOCYTES % (AUTO) 28 % (12-44); MEAN CORPUSCULAR HEMOGLOBIN 32 pg (25-34); MEAN CORPUSCULAR HGB CONC 34 g/dL (32-36); MEAN CORPUSCULAR VOLUME 95 fL (80-99); MEAN PLATELET VOLUME 8.5 fL (9.0-12.2); MONOCYTES # (AUTO) 0.9 10^3/uL (0.0-1.0); MONOCYTES % (AUTO) 9 % (0-12); NEUTROPHILS # (AUTO) 6.1 10^3/uL (1.8-7.8); NEUTROPHILS % (AUTO) 59 % (42-75); PLATELET COUNT 292 10^3/uL (130-400); WHITE BLOOD COUNT 10.4 10^3/uL (4.3-11.0)
--- NOTE | 2020-07-06 05:40 | NUR ---
PT had 1 more seizure now, so a total of 56
--- NOTE | 2020-07-06 05:42 | NUR ---
PT had 1 more seizure now, so a total of 56
--- NOTE | 2020-07-06 05:42 | NUR ---
PT had 1 more seizure now, so a total of 57
--- NOTE | 2020-07-06 05:47 | NUR ---
PT had 1 more seizure now, so a total of 58
[2020-07-06 05:53] LABS: CHLORIDE 109 MMOL/L (98-107); POTASSIUM 4.1 MMOL/L (3.6-5.0); SODIUM 141 MMOL/L (135-145)
[2020-07-06 05:54] LABS: CALCIUM 8.3 MG/DL (8.5-10.1)
--- NOTE | 2020-07-06 05:54 | NUR ---
PT had 1 more seizure now, so a total of 59
[2020-07-06 05:55] LABS: GLUCOSE 84 MG/DL (70-105)
[2020-07-06 05:56] LABS: CARBON DIOXIDE 22 MMOL/L (21-32)
--- NOTE | 2020-07-06 05:56 | NUR ---
PT had 1 more seizure now, so a total of 60. Vitals T- 35.8 C, BP 124/58, HR 92, SPO2 97% on 5 L NC, RR 14. Seizures was 30 seconds.
[2020-07-06 05:59] LABS: CREATININE SERUM 0.77 MG/DL (0.60-1.30); GFR ESTIMATED > 60
[2020-07-06 06:00] LABS: BUN/CREATININE RATIO 17
[2020-07-06 06:01] LABS: MAGNESIUM 1.9 MG/DL (1.6-2.4)
--- NOTE | 2020-07-06 06:08 | NUR ---
PT had 1 more seizure now, so a total of 61
--- NOTE | 2020-07-06 06:09 | NUR ---
PT had 1 more seizure now, so a total of 62
--- NOTE | 2020-07-06 06:19 | NUR ---
PT had 1 more seizure now, so a total of 63
--- NOTE | 2020-07-06 06:24 | NUR ---
PT had 1 more seizure now, so a total of 64
--- NOTE | 2020-07-06 06:25 | NUR ---
PT had 1 more seizure now, so a total of 65
--- NOTE | 2020-07-06 06:29 | NUR ---
PT had 1 more seizure now, so a total of 66
--- NOTE | 2020-07-06 06:32 | NUR ---
PT had 1 more seizure now, so a total of 67
--- NOTE | 2020-07-06 06:36 | NUR ---
PT had 1 more seizure now, so a total of 68
--- NOTE | 2020-07-06 06:40 | NUR ---
PT had 1 more seizure now, so a total of 69
--- NOTE | 2020-07-06 06:44 | NUR ---
PT had 1 more seizure now, so a total of 70
--- NOTE | 2020-07-06 06:48 | NUR ---
PT had 1 more seizure now, so a total of 71
--- NOTE | 2020-07-06 06:54 | NUR ---
PT had 1 more seizure now, so a total of 72
--- NOTE | 2020-07-06 06:55 | NUR ---
PT had 1 more seizure now, so a total of 73
--- NOTE | 2020-07-06 06:59 | NUR ---
PT had 1 more seizure now, so a total of 74
--- NOTE | 2020-07-06 07:08 | NUR ---
PT had 1 more seizure now, so a total of 76
--- NOTE | 2020-07-06 07:10 | NUR ---
PT had 1 more seizure now, so a total of 77
--- NOTE | 2020-07-06 07:14 | NUR ---
PT had 1 more seizure now, so a total of 78
--- NOTE | 2020-07-06 07:22 | NUR ---
PT had 1 more seizure now, so a total of 80
--- NOTE | 2020-07-06 07:25 | NUR ---
PT had 1 more seizure now, so a total of 81
--- NOTE | 2020-07-06 07:40 | NUR ---
THIS RN IS TAKING OVER CARE OF PT. RECEIVED REPORT FROM ERVIN Olivier RN. ERVIN CONTACTED DR STANLEY WHO WILL BE TAKING OVER CARE TODAY, PER ERVIN, DR STANLEY IS WILL BE IN SOON TO ASSESS AND PLAN NEXT STEPS IN CARE OF PT. THIS RN CAME INTO ROOM AND PT 02 ON 5L HIGH FLOW WAS AT 86%, RN TURNED UP 02 TO 8 L AND HE IS NOW FLUCUATING BETWEEN 94-96%. HE IS NON RESPONSIVE TO RN AND PCT THIS AM. TELESITTER HAS WENT OFF TO ALERT OF SEIZURES APPROX 4 TIMES SINCE 0700. AT THIS TIME, RN IS AT BEDSIDE AND HE APPEARS TO BE RESTING COMFORTABLY, BREATHING IS SHALLOW, BP 103/60, PULSE 94, RR 14. WHILE RN SITTING AT BEDSIDE PT HAD ANOTHER SEIZURE AND 02 DROPPED DOWN TO 81% DURING SEIZURE. SEIZURE LASTED APPROX 15 SECONDS THEN PT REBOUNDED BACK TO 98% 02 8L. PTS RODRIGUEZ IS DRAINING TO BAG, APPROX 50 ML IN BAG AT THIS TIME. WILL CONTINUE TO MONITOR CLOSELY.
[2020-07-06] MEDS: RT-ALBUTEROL INHALER HFA (VENTOLIN HFA) 18 GM IH SCH ×3 (08:36→21:18)
[2020-07-06] MEDS: CLOBAZAM 10 MG PO SCH ×2 (08:37→20:25)
[2020-07-06] MEDS: VALPROIC ACID SYRUP 250 MG/5 ML UDC PO SCH ×2 (08:37→20:21)
[2020-07-06] MEDS: RIFAXIMIN 550 MG TABLET (XIFAXAN) PO SCH ×2 (08:38→20:20)
[2020-07-06] MEDS: SODIUM CHLORIDE IV SCH ×6 (08:43→20:25)
[2020-07-06] MEDS: PHENYTOIN IV SCH ×6 (08:43→20:25)
--- NOTE | 2020-07-06 09:00 | NUR ---
RECEIVED ORDERS FROM DR STANLEY TO TRANSFER PT UP TO ICU. RN GAVE REPORT TO MIL Maradiaga RN. TELESITTER TAKEN UP STAIRS WELL.
--- NOTE | 2020-07-06 10:08 | NUR ---
PATIENT HAD SEIZURE AT THIS TIME
--- NOTE | 2020-07-06 10:19 | NUR ---
PATIENT HAD SEIZURE AT THIS TIME.
--- NOTE | 2020-07-06 10:20 | Physical Therapy Progress Note ---
Therapy Progress Note Patient on hold. Patient transferred to ICU, will need new orders to continue when appropriate. While he was downstairs on the medical floor, nurse states that he was having seizures every 5 minutes. ADOLFO JOHNSON PT Jul 06, 2020 10:20
[2020-07-06] MEDS: LEVETIRACETAM INJECTION 1,000 MG in NS (IVPB) 100 ML IV SCH (10:22)
--- NOTE | 2020-07-06 10:25 | NUR ---
PATIENT HAD SEIZURE AT THIS TIME
--- NOTE | 2020-07-06 10:28 | NUR ---
PATIENT HAD SEIZURE AT THIS TIME.
[2020-07-06] MEDS ORDERED: MIDAZOLAM DRIP PRE-MIX 100 ML IV ONE (10:29)
[2020-07-06] MEDS ORDERED: PROPOFOL DRIP (ICU) 100 ML IV ONE (10:29)
--- NOTE | 2020-07-06 10:34 | NUR ---
PATIENT HAD SEIZURE AT THIS TIME
[2020-07-06] MEDS ORDERED: NS IV 1000 ML 1,000 ML ONE ×2 (10:38→15:52)
--- NOTE | 2020-07-06 10:38 | NUR ---
PATIENT HAD SEIZURE AT THIS TIME.
--- NOTE | 2020-07-06 10:41 | NUR ---
PATIENT HAD SEIZURE AT THIS TIME.
--- NOTE | 2020-07-06 10:44 | NUR ---
PATIENT HAD SEIZURE AT THIS TIME.
--- NOTE | 2020-07-06 10:48 | NUR ---
PATIENT HAD SEIZURE AT THIS TIME.
--- NOTE | 2020-07-06 10:50 | NUR ---
TIME LINE NOTE: 1050 DR. ROSALES IN ROOM AT BEDSIDE WITH RT 1053 VERSED ADMINISTERED 1054 5 ML PROPOFOL ADMINISTERED BY DR ROSALES 1055 50 KVNG ADMINISTERED [address] ROSALES 8.0 TUBE, UNABLE TO ADVANCE TUBE PAST VOCAL CORDS 1100 7.0 TUBE ATTEMPTED, UNABLE TO ADVANCE D/T PREVIOUS SCAR TISSUE FROM PREVIOUS TRACH, ANESTHESIA CALLED ET DR. VEGA CALLED, PATIENT BEING BAGGED, O2 SAT 96-100% 1105 ANESTHESIA AT BEDSIDE [address] 6.5 TUBE, UNABLE TO ADVANCE PAST VOCAL CORDS, BRONCHOSCOPY BEGAN TO ATTEMPT TO ADVANCE TUBE FURTHER 1117: DR VEGA IN ROOM ET SECOND ANESTHESIA 1123 50 KVNG, ANESTHESIA ATTEMPT TO PLACE 5.0 TUBE 1125 5.0 ETT IN, UNABLE TO SECURE TO HOOK PATIENT UP TO VENT, PATIENT TO BE BAGGED UNTIL ABLE TO GO TO SURGERY 1130 ATIVAN [address] ROSALES CALLED TO ROOM, QUESTIONABLE TUBE PLACEMENT, R/T CO2 READING, NOTIFIED DR. VEGA, PATIENT CONTINUED TO BE BAGGED 1145 ANESTHESIA IN ROOM 1149 ANESTHESIA TAKING PATIENT TO OR WITH ASSISTANCE OF Leroy GARCIA RN ET LISBETH RT.
--- NOTE | 2020-07-06 11:06 | Occ Therapy Progress Note ---
Therapy Progress Note Change in medical status resulting in moving to higher level care in ICU. New orders needed to continue OT tx. JIM MARQUEZ OTR Jul 06, 2020 11:06
[2020-07-06] MEDS ORDERED: LIDOCAINE/EPI 1%-1:100,000 (XYLOCAINE) 20ML ONE (11:24)
[2020-07-06] MEDS ORDERED: fentaNYL INJECTION 100 MCG/2 ML AMP ONE (11:39)
[2020-07-06] MEDS ORDERED: MIDAZOLAM 2 MG/2 ML (VERSED) VIAL ONE (11:39)
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
[2020-07-06] MEDS ORDERED: HEParin (CENTRAL IV FLUSH) 500 UNIT/5 ML SYR ONE (11:59)
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
[2020-07-06] MEDS ORDERED: LACTATED RINGERS 1,000 ML IV PRN (12:15)
[2020-07-06] MEDS ORDERED: SEVOFLURANE (ULTANE) 15 ML INHAL SOLN ONE (12:23)
[2020-07-06] MEDS ORDERED: ROCURONIUM 10 MG/ML 5 ML SYRINGE IV ONE ×4 (12:23→14:15)
[2020-07-06] MEDS ORDERED: GLYCOPYRROLATE 0.2 MG/ML (ROBINUL) 2 ML VIAL ONE (12:31)
--- NOTE | 2020-07-06 12:42 | NUR ---
CM/SS update. CM/SS received notification that physician requested a referral to be sent to [facility]. Marcin reached out to this sw. CM/SS sent referral to Marcin. Awaiting further direction from physician.
[2020-07-06] MEDS ORDERED: PHENYLEPHRINE 100 MCG/ML 10 ML (ANESTHESIA) SYR ONE (13:42)
[2020-07-06] MEDS ORDERED: proPOfol 200 MG/20 ML (DIPRIVAN) VIAL IV ONE (14:06)
[2020-07-06] MEDS ORDERED: MIDAZOLAM 5 MG/5 ML (VERSED) VIAL IJ ONE (14:15)
--- NOTE | 2020-07-06 14:20 | NUR ---
PATIENT RETURNED FROM OR AT THIS TIME. THIS RN RECEIVED REPORT FROM ANESTHESIA ET CLEANER. PATIENT INTUBATED VIA STOMA IN NECK WITH 7.0 ETT. (SEE OR/SURGICAL DOCUMENTATION) ETT 13 AT THE SKIN, TUBE IS SUTURED IN ET CONNECTED TO VENT BY RT, PRESENT AT BEDSIDE. THIS RN TO RESUME CARE OF PATIENT AT THIS TIME. RESTRAINTS ON BILATERALLY.
--- NOTE | 2020-07-06 14:29 | Diagnostic Imaging Report ---
INDICATION: Tube placement. COMPARISON: 07/05/2020 FINDINGS: Single frontal radiographic view of the chest was obtained and demonstrates interval development of marked right-sided pneumothorax. There is significant atelectasis of the right lung and leftward shift of the cardiomediastinal structures. Indwelling endotracheal tube is seen with tip at the origin of the right mainstem bronchus. Patchy opacities are also now noted throughout the left lung. Left hemidiaphragm is heavily obscured. No pneumothorax is seen on the left. Osseous structures are stable. IMPRESSION: 1. New massive right-sided pneumothorax with significant atelectatic collapse of the right lung. 2. Leftward shift in cardiomediastinal structures concerning for tension. 3. Right mainstem intubation. 4. New patchy opacities of the left lung, which may be on the basis of atelectasis. Findings are discussed with Dr. Barrow by Dr. Waterman at 1423 hours on 07/06/2020. Dictated by: Dictated on workstation # [id number]
--- NOTE | 2020-07-06 15:00 | NUR ---
DR. VEGA AT BEDSIDE TO PLACE CHEST TUBE TO RIGHT CHEST. SPOKE WITH DR. VEGA REGARDING NG/OG PLACEMENT. DR. VEGA STATED OK FOR EITHER TO BE PLACED.
[2020-07-06] MEDS ORDERED: LIDOCAINE 1% INJ 20 ML 20 ML VIAL ONE (15:01)
--- NOTE | 2020-07-06 15:35 | NUR ---
CALL PLACED TO DR ROSALES REGARDING PATIENT CONTINUED SEIZURE ACTIVITY. DR GAVE ORDERS FOR 4 MG PUSH, BUT STATED DID NOT WANT TO START AN ATIVAN DRIP AT THIS TIME. DR. ROSALES STATED TO INCREASE VERSED DRIP TO 10 ET THAT HE WOULD GET A HOLD OF PHARMACY FOR SEIZURE MEDICATION ORDERS.
[2020-07-06] MEDS ORDERED: VALPROIC ACID SYRUP 250 MG/5 ML UDC GT NR (15:56)
--- NOTE | 2020-07-06 16:07 | Diagnostic Imaging Report ---
INDICATION: Pneumothorax. Status post chest tube placement. COMPARISON: Earlier same day. FINDINGS: Single frontal radiographic view of the chest was obtained and demonstrates interval placement of right-sided large-bore chest tube. Tip projects within the medial right hemithorax. Side-port however is not well visualized. There has been interval re-expansion of the right lung and evacuation of right-sided pneumothorax. There is also improved aeration of the left lung, although scattered opacities persist bilaterally. Small left effusion cannot be excluded. Cardiomediastinal structures are also now midline. Indwelling endotracheal tube is again identified. Tip remains at the origin of the right mainstem bronchus. Gastric tube is also seen with tip and side-port likely within the stomach. IMPRESSION: 1. Interval placement of right-sided large-bore chest tube with interval evacuation of the right-sided pneumothorax and re-expansion of the right lung. 2. Overall improved aeration bilaterally, with persistent scattered opacities; suspect atelectasis. 3. Endotracheal tube remains in place with tip at the origin of the right mainstem bronchus. May want to consider partially withdrawing and reimaging. Dictated by: Dictated on workstation # [id number]
[2020-07-06] MEDS: ENOXAPARIN 40 MG/0.4 ML (LOVENOX) SYR SQ SCH (17:00)
[2020-07-06] MEDS: NS IV 1000 ML 1,000 ML IV SCH ×2 (17:22→23:31)
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
[2020-07-06] MEDS: LEVETIRACETAM INJECTION 1,500 MG in NS (IVPB) 100 ML IV SCH (20:25)
[2020-07-06] MEDS: PROPOFOL DRIP (ICU) 100 ML IV SCH (20:30)
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
[2020-07-07] VITALS (27 sets, daily range): BP systolic 91–130; BP diastolic 62–88
[2020-07-07] MEDS: RT-ALBUTEROL INHALER HFA (VENTOLIN HFA) 18 GM IH SCH ×6 (01:23→21:22)
[2020-07-07] MEDS: MIDAZOLAM DRIP PRE-MIX 100 ML IV SCH ×2 (01:27→15:08)
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
[2020-07-07 03:29] LABS: BASOPHILS % (AUTO) 0 % (0-10); EOSINOPHILS % (AUTO) 0 % (0-10); HEMATOCRIT 38 % (40-54); HEMOGLOBIN 12.9 g/dL (13.3-17.7); LYMPHOCYTES # (AUTO) 1.7 10^3/uL (1.0-4.0); LYMPHOCYTES % (AUTO) 12 % (12-44); MEAN CORPUSCULAR HEMOGLOBIN 32 pg (25-34); MEAN CORPUSCULAR HGB CONC 34 g/dL (32-36); MEAN CORPUSCULAR VOLUME 93 fL (80-99); MEAN PLATELET VOLUME 8.4 fL (9.0-12.2); MONOCYTES # (AUTO) 1.1 10^3/uL (0.0-1.0); MONOCYTES % (AUTO) 8 % (0-12); NEUTROPHILS % (AUTO) 78 % (42-75); PLATELET COUNT 260 10^3/uL (130-400); WHITE BLOOD COUNT 14.1 10^3/uL (4.3-11.0)
[2020-07-07 03:45] LABS: CHLORIDE 108 MMOL/L (98-107)
[2020-07-07 03:46] LABS: POTASSIUM 3.3 MMOL/L (3.6-5.0); SODIUM 138 MMOL/L (135-145)
[2020-07-07 03:47] LABS: CALCIUM 7.5 MG/DL (8.5-10.1); GLUCOSE 89 MG/DL (70-105)
[2020-07-07 03:49] LABS: CARBON DIOXIDE 21 MMOL/L (21-32)
[2020-07-07 03:51] LABS: CREATININE SERUM 0.69 MG/DL (0.60-1.30); GFR ESTIMATED > 60
[2020-07-07 03:52] LABS: BUN/CREATININE RATIO 16
[2020-07-07 03:54] LABS: MAGNESIUM 1.7 MG/DL (1.6-2.4)
[2020-07-07 04:04] LABS: VALPROIC ACID 65.1 UG/ML (50.0-100.0)
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
[2020-07-07 05:17] LABS: BAND NEUTROPHILS 2 %; LYMPHOCYTES % (MANUAL) 9 %; MONOCYTES % (MANUAL) 8 %; NEUTROPHILS % (MANUAL) 81 %; RBC MORPH NORMAL
[2020-07-07] MEDS: LEVOTHYROXINE 50 MCG (LEVOTHROID) TAB PO SCH (05:40)
[2020-07-07] MEDS: PROPOFOL DRIP (ICU) 100 ML IV SCH ×3 (05:40→23:24)
[2020-07-07] MEDS: MAGNESIUM 1 GM/100 ML IVPB 100 ML IV SCH ×2 (05:42→06:54)
[2020-07-07] MEDS: POTASSIUM CL 10MEQ/50ML IVPB 50 ML IV SCH ×3 (05:42→06:55)
[2020-07-07] MEDS: NS IV 1000 ML 1,000 ML IV SCH ×3 (05:47→20:47)
--- NOTE | 2020-07-07 06:27 | Diagnostic Imaging Report ---
PROCEDURE: CT head without contrast. TECHNIQUE: Multiple contiguous axial images were obtained through the brain without the use of intravenous contrast. Auto Exposure Controls were utilized during the CT exam to meet ALARA standards for radiation dose reduction. INDICATION: Neurological changes and COVID positive. Multiple seizures. Comparison made with prior examination from 07/03/2020. FINDINGS: There are previous postsurgical changes on the left with encephalomalacia in the left frontal lobe and temporal lobe. There is otherwise some prominence of ventricles and sulci. There is no hydrocephalus. There is no midline shift. There is no mass, hemorrhage or extra-axial fluid collection. Sinuses and mastoid air cells are clear. IMPRESSION: No acute intracranial abnormality. Unchanged encephalomalacia as described. Dictated by: Dictated on workstation # [id number]
--- NOTE | 2020-07-07 06:29 | Diagnostic Imaging Report ---
INDICATION: Respiratory failure Portable chest 5:51 AM There is an NG tube that enters the stomach. Left subclavian central line tip projects over the innominate confluence. There appear to be 2 thoracostomy tubes on the right side of the chest. There are infiltrates at both lung bases. IMPRESSION: Bilateral basilar infiltrates. This appears slightly worse in the left lower chest compared to the previous day. Dictated by: Dictated on workstation # [id number]
[2020-07-07 07:48] LABS: ABG BASE EXCESS -1.6 MMOL/L (-2.5-2.5); ABG OXYGEN SATURATION 92 % (94-100); ABG PCO2 32 MMHG (35-45); ABG PH 7.45 (7.37-7.43); ABG PO2 57 MMHG (79-93); ABG TCO2 23.1 MMOL/L (21.0-31.0)
[2020-07-07 07:50] LABS: ALLENS TEST YES-POS
[2020-07-07 07:51] LABS: INSPIRED O2 21%; PATIENT TEMP 96.5; VENTILATOR YES
[2020-07-07] MEDS ORDERED: PANTOPRAZOLE 40 MG (PROTONIX) VIAL IV SCH (09:00)
[2020-07-07] MEDS: SODIUM CHLORIDE IV SCH ×6 (09:20→20:48)
[2020-07-07] MEDS: PHENYTOIN IV SCH ×6 (09:20→20:48)
[2020-07-07] MEDS: RIFAXIMIN 550 MG TABLET (XIFAXAN) PO SCH ×2 (09:20→20:49)
[2020-07-07] MEDS: VALPROIC ACID SYRUP 250 MG/5 ML UDC PO SCH ×3 (09:20→20:49)
[2020-07-07] MEDS: LEVETIRACETAM INJECTION 1,500 MG in NS (IVPB) 100 ML IV SCH ×2 (09:21→20:48)
[2020-07-07] MEDS: CLOBAZAM 10 MG PO SCH ×2 (09:21→20:48)
--- NOTE | 2020-07-07 13:12 | Physical Therapy Progress Note ---
Therapy Progress Note PROM all extremities in supine. Patient sedated on vent. JASMIN COPELAND PT Jul 07, 2020 13:12
--- NOTE | 2020-07-07 13:39 | NUR ---
DEBBIE/ARLET follow up. NICKOLAS received update from Marcin at [place]. He reports the patient is not currently able to transfer to [place] due to complicated trach. DEBBIE/ARLET will follow with the physician plan of care.
--- NOTE | 2020-07-07 14:57 | NUR ---
Received dietary consult regarding pt's vent status. Note pt is currently on trach, per chart review. Would recommend the following TF regimen: Pulmocare via 60ml bolus feeds q4h, with 30ml water flushes before and after each bolus. Will continue to follow and reassess as pt needs, intake, and status change. Albert CLIFTON, MS RD LD [phone] CELL
--- NOTE | 2020-07-07 16:13 | NUR ---
Palliative Care RN called and spoke to patient's father, Nick and his caregiver Dina. We reviewed the conversation they had with Dr. Coleman earlier today. We discussed the different POC options they have. At this time they still are not willing to make a decision regarding [facility]. They do like the idea of being able to see them if made CC however. I told them I would call in the morning if they had not made a decision prior to that.
[2020-07-07] MEDS: ENOXAPARIN 40 MG/0.4 ML (LOVENOX) SYR SQ SCH (16:57)
--- NOTE | 2020-07-07 17:44 | Progress Note ---
Subjective Date Seen by a Provider: Jul 07, 2020 Time Seen by a Provider: 17:30 Subjective/Events-last exam on vent/sedated. #7 endotracheal tube placed emergently below tracheal stricture. Objective Exam Vital Signs Date Time Temp Pulse Resp B/P (MAP) Pulse Ox O2 Delivery O2 Flow Rate FiO2 07/07/20 16:00 78 26 98/67 (77) 94 Mechanical Ventilator 40.00 07/07/20 15:31 35.6 07/07/20 15:09 78 97/68 07/07/20 15:08 78 26 97/68 07/07/20 15:00 78 26 96 21 07/07/20 15:00 77 25 94/68 (77) 95 Mechanical Ventilator 40.00 07/07/20 14:00 77 25 99/68 (78) 96 Mechanical Ventilator 40.00 07/07/20 13:00 78 25 105/71 (82) 96 Mechanical Ventilator 40.00 07/07/20 12:49 80 07/07/20 12:00 82 26 99/63 (75) 95 Mechanical Ventilator 40.00 07/07/20 11:26 35.6 07/07/20 11:00 77 25 91/62 (72) 95 Mechanical Ventilator 40.00 07/07/20 10:00 75 25 101/67 (78) 96 40.00 07/07/20 09:00 81 25 106/70 (82) 97 40.00 07/07/20 08:00 97 Mechanical Ventilator 21 07/07/20 08:00 81 25 106/70 (82) 97 40.00 07/07/20 07:32 35.7 07/07/20 07:31 82 26 97 21 07/07/20 07:00 85 26 113/71 (85) 96 40.00 07/07/20 06:34 85 07/07/20 06:00 89 26 128/85 (99) 98 40.00 07/07/20 05:40 77 07/07/20 05:00 77 25 130/88 (102) 98 40.00 07/07/20 04:00 36.6 07/07/20 04:00 83 25 123/83 (96) 99 40.00 07/07/20 03:00 78 25 126/81 (96) 100 40.00 07/07/20 02:00 85 25 110/75 (87) 100 40.00 07/07/20 01:27 118/71 07/07/20 01:23 87 26 100 21 07/07/20 01:00 79 18 115/73 (87) 100 40.00 07/07/20 00:00 73 20 118/71 (87) 100 40.00 07/07/20 00:00 36.4 07/06/20 23:00 70 25 110/73 (85) 100 40.00 07/06/20 22:00 69 19 109/70 (83) 100 40.00 07/06/20 21:19 68 26 100 30 07/06/20 21:00 66 25 113/74 (87) 100 40.00 07/06/20 20:50 66 26 115/74 (88) 100 Mechanical Ventilator 40.00 07/06/20 20:30 98 Mechanical Ventilator 21 07/06/20 20:30 64 07/06/20 20:00 64 26 115/74 (88) 100 Mechanical Ventilator 40.00 07/06/20 19:00 66 26 109/73 (85) 100 Mechanical Ventilator 40.00 07/06/20 19:00 67 07/06/20 18:43 62 26 100 40 07/06/20 18:00 66 26 109/71 (84) 100 Mechanical Ventilator 50.00 I & O 07/07/20 07:00 Intake Total 300 ml Output Total 1520 ml Balance -1220 ml Capillary Refill : Less Than 3 SecondsLess Than 3 Seconds General Appearance: No Apparent Distress HEENT: PERRL/EOMI Neck: Limited Range of Motion Respiratory: Decreased Breath Sounds, Rhonci, Wheezing Cardiovascular: Regular Rate, Rhythm Gastrointestinal: non tender, soft Extremity: Normal Capillary Refill Skin: Normal Color Lymphatic: No Adenopathy Results Lab Laboratory Tests 07/07/20 03:10: White Blood Count 14.1H, Red Blood Count 4.08L, Hemoglobin 12.9L, Hematocrit 38L , Mean Corpuscular Volume 93, Mean Corpuscular Hemoglobin 32, Mean Corpuscular Hemoglobin Concent 34, Red Cell Distribution Width 11.7, Platelet Count 260, Mean Platelet Volume 8.4L, Immature Granulocyte % (Auto) 2, Neutrophils (%) (Auto) 78H, Lymphocytes (%) (Auto) 12, Monocytes (%) (Auto) 8, Eosinophils (%) (Auto) 0, Basophils (%) (Auto) 0, Neutrophils # (Auto) 11.0H, Lymphocytes # (Auto) 1.7, Monocytes # (Auto) 1.1H, Eosinophils # (Auto) 0.0, Basophils # (Auto) 0.0, Immature Granulocyte # (Auto) 0.3H, Neutrophils % (Manual) 81, Lymphocytes % (Manual) 9, Monocytes % (Manual) 8, Band Neutrophils 2, Blood Morphology Comment NORMAL, Sodium Level 138, Potassium Level 3.3L, Chloride Level 108H, Carbon Dioxide Level 21, Anion Gap 9, Blood Urea Nitrogen 11, Creatinine 0.69, Estimat Glomerular Filtration Rate > 60, BUN/Creatinine Ratio 16, Glucose Level 89, Calcium Level 7.5L, Phosphorus Level 3.0, Magnesium Level 1.7, Valproic Acid (Depakene) Level 65.1 07/07/20 07:40: Blood Gas Puncture Site LT RAD, Blood Gas Patient Temperature 96.5, Arterial Blood pH 7.45H, Arterial Blood Partial Pressure CO2 32L, Arterial Blood Partial Pressure O2 57L, Arterial Blood HCO3 22L, Arterial Blood Total CO2 23.1, Arterial Blood Oxygen Saturation 92L, Arterial Blood Base Excess -1.6, Lito Test YES-POS, Blood Gas Ventilator Setting YES, Blood Gas Inspired Oxygen 21% 07/07/20 11:24: Glucometer 112H 07/07/20 17:25: Glucometer 111H Microbiology 07/06/20 Gram Stain - Final, Resulted 07/06/20 Sputum Culture, Resulted Pending 06/27/20 Urine Culture - Final, Complete NO GROWTH 06/27/20 Blood Culture - Final, Complete No growth Assessment/Plan Assessment/Plan Assess & Plan/Chief Complaint covid ARDS with tracheal stenosis and s/p emergent trach placed. prognosis poor. family deciding on comfort care measures. Clinical Quality Measures DVT/VTE Risk/Contraindication: Risk Factor Score Per Nursin RFS Level Per Nursing on Admit: 4+=Very High DUC VEGA MD Jul 07, 2020 17:44
[2020-07-07] MEDS: FAMOTIDINE 20 MG (PEPCID) TABLET GT SCH (20:47)
[2020-07-08] VITALS (29 sets, daily range): BP systolic 89–115; BP diastolic 50–94
[2020-07-08] MEDS: RT-ALBUTEROL INHALER HFA (VENTOLIN HFA) 18 GM IH SCH ×6 (00:59→22:32)
[2020-07-08] MEDS: NS IV 1000 ML 1,000 ML IV SCH ×4 (03:06→23:46)
[2020-07-08 03:16] LABS: BASOPHILS % (AUTO) 0 % (0-10); EOSINOPHILS % (AUTO) 0 % (0-10); HEMATOCRIT 37 % (40-54); HEMOGLOBIN 12.5 g/dL (13.3-17.7); LYMPHOCYTES % (AUTO) 7 % (12-44); MEAN CORPUSCULAR HEMOGLOBIN 32 pg (25-34); MEAN CORPUSCULAR HGB CONC 34 g/dL (32-36); MEAN CORPUSCULAR VOLUME 92 fL (80-99); MEAN PLATELET VOLUME 8.5 fL (9.0-12.2); MONOCYTES # (AUTO) 1.2 10^3/uL (0.0-1.0); MONOCYTES % (AUTO) 9 % (0-12); NEUTROPHILS # (AUTO) 11.3 10^3/uL (1.8-7.8); NEUTROPHILS % (AUTO) 82 % (42-75); PLATELET COUNT 246 10^3/uL (130-400); WHITE BLOOD COUNT 13.7 10^3/uL (4.3-11.0)
[2020-07-08 03:25] LABS: CHLORIDE 112 MMOL/L (98-107); POTASSIUM 3.5 MMOL/L (3.6-5.0); SODIUM 140 MMOL/L (135-145)
[2020-07-08 03:26] LABS: CALCIUM 7.2 MG/DL (8.5-10.1)
[2020-07-08 03:27] LABS: GLUCOSE 113 MG/DL (70-105); TRIGLYCERIDES 174 MG/DL (<150)
[2020-07-08 03:28] LABS: CARBON DIOXIDE 19 MMOL/L (21-32)
[2020-07-08 03:30] LABS: PHOSPHORUS 2.8 MG/DL (2.3-4.7)
[2020-07-08 03:31] LABS: BUN/CREATININE RATIO 11; CREATININE SERUM 0.64 MG/DL (0.60-1.30); GFR ESTIMATED > 60
[2020-07-08 03:33] LABS: MAGNESIUM 1.8 MG/DL (1.6-2.4)
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
[2020-07-08 04:35] LABS: ABG BASE EXCESS -2.9 MMOL/L (-2.5-2.5); ABG OXYGEN SATURATION 93 % (94-100); ABG PCO2 32 MMHG (35-45); ABG PH 7.43 (7.37-7.43); ABG PO2 64 MMHG (79-93); ABG TCO2 21.8 MMOL/L (21.0-31.0)
[2020-07-08 04:38] LABS: ALLENS TEST POSITIVE; INSPIRED O2 21; PATIENT TEMP 36.4; VENTILATOR YES
[2020-07-08] MEDS ORDERED: PIPERACILLIN/TAZO 4.5 GM VIAL (ZOSYN) IV ONE (05:32)
[2020-07-08] MEDS ORDERED: NS (IVPB) 100 ML ONE (05:32)
[2020-07-08] MEDS: LEVOTHYROXINE 50 MCG (LEVOTHROID) TAB PO SCH (05:43)
[2020-07-08] MEDS: POTASSIUM CL 10MEQ/50ML IVPB 50 ML IV SCH ×4 (05:43→09:02)
[2020-07-08] MEDS: MIDAZOLAM DRIP PRE-MIX 100 ML IV SCH (05:46)
[2020-07-08] MEDS: PROPOFOL DRIP (ICU) 100 ML IV SCH ×2 (05:47→19:57)
[2020-07-08] MEDS ORDERED: PIPERACILLIN/TAZOBACTAM (BULK) 4.5 GM in NS (IVPB) 100 ML IV ONE (06:00)
[2020-07-08 07:44] LABS: GLUCOSE,BODY FLUID 115 MG/DL; TOTAL PROTEIN,BODY FLUID 2.2 G/DL
[2020-07-08 07:45] LABS: LDH,BODY FLUID 451 U/L
--- NOTE | 2020-07-08 08:00 | Diagnostic Imaging Report ---
EXAMINATION: Chest radiograph, portable AP view. DATE: 07/08/2020 1:09 AM INDICATION: 60-year-old male, dyspnea. COMPARISON: July 07, 2020. FINDINGS: The nasogastric tube tip is at the level of the proximal stomach. There is a left sided central venous line nonparallel in position at the level of the upper SVC. There is a catheter overlying the mediastinum which is also present on the prior exam. There is no identified pneumothorax. There is grossly unchanged nonspecific right greater than left bibasilar airspace consolidation. IMPRESSION: 1. Unchanged nonspecific right greater than left bibasilar airspace consolidation. 2. Support lines and tubes as above. Dictated by: Dictated on workstation # [id number]
[2020-07-08 08:37] LABS: BODY FLUID APPEARENCE MKD BLDY; BODY FLUID COLOR RED; BODY FLUID PH 7.7; BODY FLUID RBC COUNT 49650 /uL; BODY FLUID SOURCE THORACEN; BODY FLUID WBC TOTAL COUNT 885 /uL
--- NOTE | 2020-07-08 08:37 | NUR ---
DISCUSSED WITH DR ROSALES: DRUG LEVELS FINALLY REPORTED SUBTHERAPEUTIC LEVELS FOR PHENOBARBITAL AND PHENYTOIN. Plan: 1. Increase phenytoin to 250mg IV q12h ( 5.8mg/kg/day) 2. Increased phenobarbital to 130mg iv TID ( 4.5mg/kg/day) 3. increase valproic acid to 1,250mg iv q8h (changed on 07/07/2020) (43 mg/kg/day) repeat levels on 1214 am labs
[2020-07-08 08:48] LABS: LYMPHOCYTES,BODY FLUID 50 %
[2020-07-08] MEDS: LEVETIRACETAM INJECTION 1,500 MG in NS (IVPB) 100 ML IV SCH ×2 (09:07→19:59)
[2020-07-08] MEDS: CLOBAZAM 10 MG PO SCH ×2 (09:11→20:07)
[2020-07-08] MEDS: FAMOTIDINE 20 MG (PEPCID) TABLET GT SCH ×2 (09:11→20:04)
[2020-07-08] MEDS: RIFAXIMIN 550 MG TABLET (XIFAXAN) PO SCH ×2 (09:11→20:06)
[2020-07-08] MEDS: MICRON FILTER IV SCH ×6 (09:12→20:04)
[2020-07-08] MEDS: NS IV SCH ×6 (09:12→20:04)
[2020-07-08] MEDS: PHENYTOIN IV SCH ×6 (09:12→20:04)
[2020-07-08] MEDS: VALPROIC ACID SYRUP 250 MG/5 ML UDC PO SCH ×3 (09:20→20:06)
--- NOTE | 2020-07-08 11:22 | Physical Therapy Progress Note ---
Therapy Progress Note Patient sedated and ventilated. PROM all extremities. JASMIN COPELAND PT Jul 08, 2020 11:22
--- NOTE | 2020-07-08 11:47 | NUR ---
PALLIATIVE CARE RN called and spoke to patient's father, Nick, and Dina, caregiver. There has not been any reportable change since speaking to them yesterday afternoon. We went over the discussion of last evening which included [facility]. At this time they are not wanting to change POC.
[2020-07-08] MEDS: PIPERACILLIN/TAZOBACTAM (BULK) 4.5 GM in NS (IVPB) 100 ML IV SCH ×2 (13:05→20:04)
--- NOTE | 2020-07-08 13:23 | NUR ---
Note pt is currently intubated/sedated. Would recommend initiation of TF at this time. Recommend [facility]mocare via 60ml bolus feeds q4h, with 30ml water flushes before and after each bolus. Would recommend increases of 30ml bolus feeds q8 as tolerated, toward goal of 190ml bolus feeds q4h. Will continue to follow and reassess as pt needs, intake, and status change. Will place TF order, per Dr Coleman. S MELODY CLIFTON, MS RD LD [phone] CELL
[2020-07-08] MEDS: ENOXAPARIN 40 MG/0.4 ML (LOVENOX) SYR SQ SCH (16:02)
[2020-07-09] VITALS (60 sets, daily range): BP systolic 85–151; BP diastolic 50–93
[2020-07-09] MEDS: RT-ALBUTEROL INHALER HFA (VENTOLIN HFA) 18 GM IH SCH ×6 (02:41→22:19)
[2020-07-09 02:49] LABS: ABG BASE EXCESS -3.5 MMOL/L (-2.5-2.5); ABG OXYGEN SATURATION 95 % (94-100); ABG PCO2 31 MMHG (35-45); ABG PH 7.43 (7.37-7.43); ABG PO2 74 MMHG (79-93); ABG TCO2 21.1 MMOL/L (21.0-31.0)
[2020-07-09 02:50] LABS: ALLENS TEST POSITIVE; BASOPHILS % (AUTO) 0 % (0-10); EOSINOPHILS % (AUTO) 0 % (0-10); HEMATOCRIT 36 % (40-54); HEMOGLOBIN 12.4 g/dL (13.3-17.7); INSPIRED O2 21; LYMPHOCYTES # (AUTO) 1.1 10^3/uL (1.0-4.0); LYMPHOCYTES % (AUTO) 7 % (12-44); MEAN CORPUSCULAR HEMOGLOBIN 32 pg (25-34); MEAN CORPUSCULAR HGB CONC 34 g/dL (32-36); MEAN CORPUSCULAR VOLUME 93 fL (80-99); MEAN PLATELET VOLUME 8.6 fL (9.0-12.2); MONOCYTES # (AUTO) 1.1 10^3/uL (0.0-1.0); MONOCYTES % (AUTO) 7 % (0-12); NEUTROPHILS # (AUTO) 13.3 10^3/uL (1.8-7.8); NEUTROPHILS % (AUTO) 84 % (42-75); PATIENT TEMP 36.9; PLATELET COUNT 208 10^3/uL (130-400); VENTILATOR YES; WHITE BLOOD COUNT 15.8 10^3/uL (4.3-11.0)
[2020-07-09 03:20] LABS: CHLORIDE 111 MMOL/L (98-107); POTASSIUM 3.4 MMOL/L (3.6-5.0); SODIUM 139 MMOL/L (135-145)
[2020-07-09 03:21] LABS: CALCIUM 7.4 MG/DL (8.5-10.1)
[2020-07-09 03:22] LABS: GLUCOSE 95 MG/DL (70-105)
[2020-07-09 03:23] LABS: CARBON DIOXIDE 18 MMOL/L (21-32)
[2020-07-09 03:25] LABS: PHOSPHORUS 2.6 MG/DL (2.3-4.7)
[2020-07-09 03:26] LABS: BUN/CREATININE RATIO 7; CREATININE SERUM 0.61 MG/DL (0.60-1.30); GFR ESTIMATED > 60
[2020-07-09 03:28] LABS: MAGNESIUM 1.6 MG/DL (1.6-2.4)
[2020-07-09] MEDS: PIPERACILLIN/TAZOBACTAM (BULK) 4.5 GM in NS (IVPB) 100 ML IV SCH ×3 (04:54→20:45)
[2020-07-09] MEDS: MIDAZOLAM DRIP PRE-MIX 100 ML IV SCH (04:56)
[2020-07-09] MEDS: NS IV 1000 ML 1,000 ML IV SCH ×3 (04:57→20:42)
[2020-07-09] MEDS: KCL 20 MEQ TAB (K-DUR) PO SCH (05:46)
[2020-07-09] MEDS: MAGNESIUM 1 GM/100 ML IVPB 100 ML IV SCH ×3 (05:46→06:02)
[2020-07-09] MEDS: POTASSIUM CL 10MEQ/50ML IVPB 50 ML IV SCH ×3 (05:46→06:02)
[2020-07-09] MEDS: LEVOTHYROXINE 50 MCG (LEVOTHROID) TAB PO SCH (06:02)
--- NOTE | 2020-07-09 06:57 | Diagnostic Imaging Report ---
INDICATION: Dyspnea. Comparison made with prior examination of 07/08/2020. FINDINGS: There are patchy bibasilar infiltrates. There is cardiomegaly. Lines and tubes are in satisfactory position. No pneumothorax. IMPRESSION: Patchy bibasilar infiltrates. Cardiomegaly and mild central pulmonary venous congestion. Dictated by: Dictated on workstation # [id number]
[2020-07-09] MEDS: MICRON FILTER IV SCH ×6 (07:59→20:47)
[2020-07-09] MEDS: PHENYTOIN IV SCH ×6 (07:59→20:47)
[2020-07-09] MEDS: NS IV SCH ×6 (07:59→20:47)
[2020-07-09] MEDS: VALPROIC ACID SYRUP 250 MG/5 ML UDC PO SCH ×3 (08:07→20:45)
[2020-07-09] MEDS: RIFAXIMIN 550 MG TABLET (XIFAXAN) PO SCH ×2 (08:07→20:45)
[2020-07-09] MEDS: FAMOTIDINE 20 MG (PEPCID) TABLET GT SCH ×2 (08:07→20:45)
[2020-07-09] MEDS: LEVETIRACETAM INJECTION 1,500 MG in NS (IVPB) 100 ML IV SCH ×2 (08:08→20:45)
[2020-07-09] MEDS: CLOBAZAM 10 MG PO SCH ×2 (08:10→20:47)
--- NOTE | 2020-07-09 10:59 | Progress Note ---
Subjective Date Seen by a Provider: Jul 09, 2020 Time Seen by a Provider: 10:30 Subjective/Events-last exam on vent/sedated. respiratory status improving. has endotracheal tube acting as tracheostomy. Objective Exam Vital Signs Date Time Temp Pulse Resp B/P (MAP) Pulse Ox O2 Delivery O2 Flow Rate FiO2 07/09/20 10:00 88 23 106/70 (83) Mechanical Ventilator 21.00 07/09/20 09:45 88 25 111/73 (87) 94 Mechanical Ventilator 21.00 07/09/20 09:30 87 24 105/76 (89) 93 Mechanical Ventilator 21.00 07/09/20 09:15 90 25 109/74 (83) 95 Mechanical Ventilator 21.00 07/09/20 09:15 90 25 109/74 (83) 95 Mechanical Ventilator 21.00 07/09/20 09:00 91 27 116/77 (84) Mechanical Ventilator 21.00 07/09/20 08:45 89 26 114/82 (93) 96 Mechanical Ventilator 21.00 07/09/20 08:30 80 22 112/82 (94) 95 Mechanical Ventilator 21.00 07/09/20 08:15 75 21 88/62 (72) 94 Mechanical Ventilator 21.00 07/09/20 08:13 74 22 88/63 (71) 94 Mechanical Ventilator 21.00 07/09/20 08:00 97 Mechanical Ventilator 21 07/09/20 08:00 35.8 82 22 112/80 (91) 98 Mechanical Ventilator 21.00 07/09/20 07:56 36.0 07/09/20 07:45 84 22 90/52 (64) 95 Mechanical Ventilator 07/09/20 07:30 88 22 85/50 (64) 94 Mechanical Ventilator 21.00 07/09/20 07:15 88 21 85/52 (67) 94 Mechanical Ventilator 21.00 07/09/20 07:00 89 07/09/20 07:00 90 22 95 21 07/09/20 07:00 89 22 89/50 (67) Mechanical Ventilator 21.00 07/09/20 06:00 90 22 92/59 (70) 97 Mechanical Ventilator 21.00 07/09/20 05:00 95 21 111/68 (82) 96 Mechanical Ventilator 21.00 07/09/20 04:56 95 99/67 07/09/20 04:00 36.2 07/09/20 04:00 94 19 109/78 (88) 97 Mechanical Ventilator 21.00 07/09/20 03:00 95 23 112/72 (85) 98 Mechanical Ventilator 21.00 07/09/20 02:41 97 22 98 21 07/09/20 02:00 96 24 112/77 (89) 98 Mechanical Ventilator 21.00 07/09/20 01:00 93 18 118/85 (96) 97 Mechanical Ventilator 21.00 07/09/20 01:00 93 07/09/20 00:00 87 24 108/76 (87) 99 Mechanical Ventilator 21.00 07/08/20 23:46 36.0 07/08/20 23:00 89 19 98/73 (81) 98 Mechanical Ventilator 21.00 07/08/20 22:33 89 22 96 21 07/08/20 22:00 93 22 104/70 (81) 98 Mechanical Ventilator 21.00 07/08/20 21:00 90 26 105/79 (88) 98 Mechanical Ventilator 21.00 07/08/20 20:35 35.8 Mechanical Ventilator 21.00 07/08/20 20:00 93 18 106/77 (87) 97 Mechanical Ventilator 21.00 07/08/20 20:00 97 Mechanical Ventilator 21 07/08/20 19:57 93 113/76 07/08/20 19:19 36.0 07/08/20 19:10 95 22 97 21 07/08/20 19:00 91 07/08/20 19:00 90 20 108/72 (84) 98 Mechanical Ventilator 21.00 07/08/20 18:00 93 23 102/69 (80) 98 Mechanical Ventilator 21.00 07/08/20 17:00 96 111/72 (85) 98 Mechanical Ventilator 21.00 07/08/20 16:00 97 16 111/79 (90) 96 Mechanical Ventilator 21.00 07/08/20 15:17 36.3 07/08/20 15:15 95 22 97 21 07/08/20 15:00 93 15 115/75 (88) 98 Mechanical Ventilator 21.00 07/08/20 14:00 93 25 97 Mechanical Ventilator 21.00 07/08/20 13:00 92 23 108/75 (86) 97 Mechanical Ventilator 21.00 07/08/20 13:00 91 07/08/20 12:00 96 10 89/51 (64) 99 Mechanical Ventilator 21.00 07/08/20 11:00 93 24 92/50 (64) 99 Mechanical Ventilator 21.00 07/08/20 10:57 36.8 I & O 07/09/20 07:00 Intake Total 350 ml Output Total 1725 ml Balance -1375 ml Capillary Refill : Less Than 3 SecondsLess Than 3 Seconds General Appearance: No Apparent Distress Neck: Normal Inspection Respiratory: Chest Non Tender, Rhonci, Other (no air leak) Cardiovascular: Regular Rate, Rhythm Gastrointestinal: normal bowel sounds, non tender, soft Extremity: Normal Capillary Refill Skin: Normal Color Lymphatic: No Adenopathy Results Lab Laboratory Tests 07/08/20 11:11: Glucometer 99 07/08/20 17:10: Glucometer 101 07/08/20 23:34: Glucometer 92 07/09/20 02:41: White Blood Count 15.8H, Red Blood Count 3.89L, Hemoglobin 12.4L, Hematocrit 36L , Mean Corpuscular Volume 93, Mean Corpuscular Hemoglobin 32, Mean Corpuscular Hemoglobin Concent 34, Red Cell Distribution Width 12.5, Platelet Count 208, Mean Platelet Volume 8.6L, Immature Granulocyte % (Auto) 2, Neutrophils (%) (Auto) 84H, Lymphocytes (%) (Auto) 7L, Monocytes (%) (Auto) 7, Eosinophils (%) (Auto) 0, Basophils (%) (Auto) 0, Neutrophils # (Auto) 13.3H, Lymphocytes # (Auto) 1.1, Monocytes # (Auto) 1.1H, Eosinophils # (Auto) 0.0, Basophils # (Auto) 0.0, Immature Granulocyte # (Auto) 0.3H, Blood Gas Puncture Site LEFT RADIAL, Blood Gas Patient Temperature 36.9, Arterial Blood pH 7.43, Arterial Blood Partial Pressure CO2 31L, Arterial Blood Partial Pressure O2 74L, Arterial Blood HCO3 20L, Arterial Blood Total CO2 21.1, Arterial Blood Oxygen Saturation 95, Arterial Blood Base Excess -3.5L, Lito Test POSITIVE, Blood Gas Ventilator Setting YES, Blood Gas Inspired Oxygen 21, Sodium Level 139, Potassium Level 3.4L, Chloride Level 111H, Carbon Dioxide Level 18L, Anion Gap 10, Blood Urea Nitrogen 4L, Creatinine 0.61, Estimat Glomerular Filtration Rate > 60, BUN/Creatinine Ratio 7, Glucose Level 95, Calcium Level 7.4L, Phosphorus Level 2.6, Magnesium Level 1.6 Microbiology 07/08/20 Gram Stain - Final, Resulted 07/08/20 Body Fluid Culture, Resulted Pending 07/06/20 Gram Stain - Final, Complete 07/06/20 Sputum Culture - Final, Complete Usual upper respiratory christophe 06/27/20 Urine Culture - Final, Complete NO GROWTH 06/27/20 Blood Culture - Final, Complete No growth Assessment/Plan Assessment/Plan Assess & Plan/Chief Complaint covid ARDS with tracheal stenosis and s/p emergent trach placed. tolerating vent. no right chest tube air leak. has endotracheal tube acting as trachestomy due to scar tissue and depth. family deciding on comfort care measures. cont current management for now. Clinical Quality Measures DVT/VTE Risk/Contraindication: Risk Factor Score Per Nursin RFS Level Per Nursing on Admit: 4+=Very High DUC VEGA MD Jul 09, 2020 10:59
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
[2020-07-09] MEDS: ENOXAPARIN 40 MG/0.4 ML (LOVENOX) SYR SQ SCH (16:58)
[2020-07-10] VITALS (62 sets, daily range): BP systolic 89–131; BP diastolic 57–95
[2020-07-10] MEDS: RT-ALBUTEROL INHALER HFA (VENTOLIN HFA) 18 GM IH SCH ×6 (02:39→22:31)
[2020-07-10 03:18] LABS: ABG BASE EXCESS -0.6 MMOL/L (-2.5-2.5); ABG OXYGEN SATURATION 92 % (94-100); ABG PCO2 32 MMHG (35-45); ABG PH 7.47 (7.37-7.43); ABG PO2 65 MMHG (79-93); ABG TCO2 23.7 MMOL/L (21.0-31.0); BASOPHILS % (AUTO) 0 % (0-10); EOSINOPHILS % (AUTO) 0 % (0-10); HEMATOCRIT 37 % (40-54); HEMOGLOBIN 12.4 g/dL (13.3-17.7); LYMPHOCYTES # (AUTO) 1.5 10^3/uL (1.0-4.0); LYMPHOCYTES % (AUTO) 12 % (12-44); MEAN CORPUSCULAR HEMOGLOBIN 31 pg (25-34); MEAN CORPUSCULAR HGB CONC 33 g/dL (32-36); MEAN CORPUSCULAR VOLUME 94 fL (80-99); MEAN PLATELET VOLUME 8.7 fL (9.0-12.2); MONOCYTES # (AUTO) 0.7 10^3/uL (0.0-1.0); MONOCYTES % (AUTO) 6 % (0-12); NEUTROPHILS # (AUTO) 9.4 10^3/uL (1.8-7.8); NEUTROPHILS % (AUTO) 79 % (42-75); PLATELET COUNT 211 10^3/uL (130-400)
[2020-07-10] MEDS: NS IV 1000 ML 1,000 ML IV SCH ×4 (03:24→20:17)
[2020-07-10 03:30] LABS: ALLENS TEST POSITIVE; INSPIRED O2 21; PATIENT TEMP 36.9; VENTILATOR YES
[2020-07-10 03:32] LABS: CHLORIDE 112 MMOL/L (98-107); POTASSIUM 3.7 MMOL/L (3.6-5.0); SODIUM 140 MMOL/L (135-145)
[2020-07-10 03:33] LABS: CALCIUM 7.9 MG/DL (8.5-10.1)
[2020-07-10] MEDS: PIPERACILLIN/TAZOBACTAM (BULK) 4.5 GM in NS (IVPB) 100 ML IV SCH ×3 (03:33→20:18)
[2020-07-10 03:34] LABS: GLUCOSE 80 MG/DL (70-105); TRIGLYCERIDES 129 MG/DL (<150)
[2020-07-10 03:35] LABS: CARBON DIOXIDE 20 MMOL/L (21-32)
[2020-07-10 03:37] LABS: PHOSPHORUS 2.6 MG/DL (2.3-4.7)
[2020-07-10 03:38] LABS: CREATININE SERUM 0.62 MG/DL (0.60-1.30); GFR ESTIMATED > 60
[2020-07-10 03:39] LABS: BUN/CREATININE RATIO 5
[2020-07-10 03:40] LABS: MAGNESIUM 1.9 MG/DL (1.6-2.4)
[2020-07-10] MEDS: LEVOTHYROXINE 50 MCG (LEVOTHROID) TAB PO SCH (06:10)
[2020-07-10] MEDS: POTASSIUM CL 10MEQ/50ML IVPB 50 ML IV SCH (06:58)
[2020-07-10] MEDS: KCL 20 MEQ TAB (K-DUR) PO SCH (06:58)
[2020-07-10] MEDS: MAGNESIUM 1 GM/100 ML IVPB 100 ML IV SCH (06:58)
[2020-07-10] MEDS: PHENYTOIN IV SCH ×6 (07:49→20:22)
[2020-07-10] MEDS: MICRON FILTER IV SCH ×6 (07:49→20:22)
[2020-07-10] MEDS: NS IV SCH ×6 (07:49→20:22)
[2020-07-10] MEDS: RIFAXIMIN 550 MG TABLET (XIFAXAN) PO SCH ×2 (07:50→20:20)
[2020-07-10] MEDS: FAMOTIDINE 20 MG (PEPCID) TABLET GT SCH ×2 (07:50→20:20)
[2020-07-10] MEDS: LEVETIRACETAM INJECTION 1,500 MG in NS (IVPB) 100 ML IV SCH ×2 (07:51→20:21)
[2020-07-10] MEDS: VALPROIC ACID SYRUP 250 MG/5 ML UDC PO SCH ×3 (07:51→20:29)
[2020-07-10] MEDS: CLOBAZAM 10 MG PO SCH ×2 (07:51→20:21)
--- NOTE | 2020-07-10 08:32 | Diagnostic Imaging Report ---
CHEST 1 VIEW, AP/PA ONLY Indication: Dyspnea Comparison: 07/09/2020 Findings: Stable tracheostomy tube and enteric tube. Stable left subclavian central venous catheter. No pneumothorax. Mildly improved aeration of the lung bases. There remain consolidations with air bronchograms on the left. Trace bilateral pleural effusions likely are present. Probable right-sided chest tube in stable position. Impression: 1. Stable support devices. 2. Improved but persistent basilar opacities and small pleural effusions. Dictated by: Dictated on workstation # [id number]
--- NOTE | 2020-07-10 10:22 | Progress Note ---
Subjective Date Seen by a Provider: Jul 10, 2020 Time Seen by a Provider: 10:00 Subjective/Events-last exam on vent/sedated. minimal vent setting with adequate abg. no airleak on CT. Objective Exam Vital Signs Date Time Temp Pulse Resp B/P (MAP) Pulse Ox O2 Delivery O2 Flow Rate FiO2 07/10/20 10:00 90 22 98/59 (72) 91 Mechanical Ventilator 21.00 07/10/20 09:30 93 21 103/65 (78) 92 07/10/20 09:15 96 21 108/69 (82) 93 07/10/20 09:00 100 23 117/82 (94) 95 Mechanical Ventilator 21.00 07/10/20 08:30 101 15 129/81 (97) 95 07/10/20 08:15 121/81 (93) 07/10/20 08:00 97 Mechanical Ventilator 21 07/10/20 08:00 94 11 117/82 (96) Mechanical Ventilator 21.00 07/10/20 07:45 95 13 123/83 (96) 07/10/20 07:42 96 25 96 21 07/10/20 07:30 94 21 120/79 (91) 96 07/10/20 07:30 36.8 07/10/20 07:15 96 24 122/83 (95) 95 07/10/20 07:00 95 07/10/20 07:00 96 32 125/82 (97) Mechanical Ventilator 21.00 07/10/20 06:45 93 30 124/86 (96) 95 07/10/20 06:30 96 26 119/91 (100) 95 07/10/20 06:15 94 24 116/75 (90) 94 07/10/20 06:00 89 22 93/57 (69) 92 Mechanical Ventilator 21.00 07/10/20 05:00 90 22 94/60 (71) 94 Mechanical Ventilator 21.00 07/10/20 04:00 98 21 115/78 (90) 96 Mechanical Ventilator 21.00 07/10/20 03:35 36.9 07/10/20 03:00 101 24 112/71 (85) 98 Mechanical Ventilator 21.00 07/10/20 02:39 96 24 98 21 07/10/20 02:00 91 20 117/77 (90) 98 Mechanical Ventilator 21.00 07/10/20 01:00 93 21 118/77 (91) 98 Mechanical Ventilator 21.00 07/10/20 01:00 92 07/10/20 00:00 92 24 115/73 (87) 96 Mechanical Ventilator 21.00 07/09/20 23:00 86 21 100/63 (75) 95 Mechanical Ventilator 21.00 07/09/20 22:20 94 22 98 21 07/09/20 22:00 87 21 101/67 (78) 97 Mechanical Ventilator 21.00 07/09/20 21:08 Mechanical Ventilator 21.00 07/09/20 21:00 85 21 117/78 (91) 98 Mechanical Ventilator 21.00 07/09/20 20:00 97 Mechanical Ventilator 21 07/09/20 20:00 89 21 113/73 (86) 98 Mechanical Ventilator 21.00 07/09/20 19:43 90 22 97 21 07/09/20 19:34 36.0 07/09/20 19:00 87 07/09/20 19:00 87 22 116/82 (93) 98 Mechanical Ventilator 21.00 07/09/20 18:00 87 21 114/76 (88) Mechanical Ventilator 21.00 07/09/20 17:45 86 22 112/74 (87) Mechanical Ventilator 21.00 07/09/20 17:30 87 22 115/74 (90) 99 Mechanical Ventilator 21.00 07/09/20 17:15 90 17 121/76 (87) 98 Mechanical Ventilator 21.00 07/09/20 17:00 98 31 120/82 (96) Mechanical Ventilator 21.00 07/09/20 16:45 101 13 135/93 (109) Mechanical Ventilator 21.00 07/09/20 16:30 92 23 117/82 (92) 98 Mechanical Ventilator 21.00 07/09/20 16:15 90 22 115/79 (92) 98 Mechanical Ventilator 21.00 07/09/20 16:00 90 24 111/77 (91) 98 Mechanical Ventilator 21.00 07/09/20 15:45 91 22 112/81 (89) 98 Mechanical Ventilator 21.00 07/09/20 15:30 91 17 120/80 (93) 98 Mechanical Ventilator 21.00 07/09/20 15:15 95 21 132/89 (104) 97 Mechanical Ventilator 21.00 07/09/20 15:00 96 18 133/83 (99) Mechanical Ventilator 21.00 07/09/20 14:45 115 25 95 Mechanical Ventilator 21.00 07/09/20 14:43 97 22 96 21 07/09/20 14:30 114 31 151/ Mechanical Ventilator 21.00 07/09/20 14:15 89 22 101/70 (80) Mechanical Ventilator 21.00 07/09/20 14:00 88 25 108/70 (84) Mechanical Ventilator 21.00 07/09/20 13:45 90 23 104/69 (84) Mechanical Ventilator 21.00 07/09/20 13:30 89 22 106/71 (83) 96 Mechanical Ventilator 21.00 07/09/20 13:15 86 22 108/73 (87) 96 Mechanical Ventilator 21.00 07/09/20 13:00 88 07/09/20 13:00 86 21 107/72 (84) Mechanical Ventilator 21.00 07/09/20 12:45 86 21 106/73 (83) Mechanical Ventilator 21.00 07/09/20 12:30 86 21 103/75 (86) 97 Mechanical Ventilator 21.00 07/09/20 12:15 87 22 105/75 (84) 97 Mechanical Ventilator 21.00 07/09/20 12:00 86 21 104/75 (82) 07/09/20 12:00 86 21 104/75 (82) Mechanical Ventilator 21.00 07/09/20 11:45 86 22 106/75 (86) Mechanical Ventilator 21.00 07/09/20 11:32 36.3 07/09/20 11:30 86 22 107/74 (88) 96 Mechanical Ventilator 21.00 07/09/20 11:15 87 24 112/69 (83) 96 Mechanical Ventilator 21.00 07/09/20 11:00 89 22 111/74 (85) 95 Mechanical Ventilator 21.00 07/09/20 10:53 89 22 95 21 07/09/20 10:45 86 24 106/76 (85) 94 Mechanical Ventilator 21.00 07/09/20 10:30 89 22 104/70 (82) 94 Mechanical Ventilator 21.00 I & O 07/10/20 07:00 Output Total 3125 ml Balance -3125 ml Capillary Refill : Less Than 3 SecondsLess Than 3 Seconds General Appearance: No Apparent Distress HEENT: Normal ENT Inspection Neck: Normal Inspection Respiratory: Chest Non Tender, Decreased Breath Sounds Cardiovascular: Regular Rate, Rhythm Gastrointestinal: normal bowel sounds, non tender, soft Extremity: Normal Capillary Refill Skin: Normal Color Lymphatic: No Adenopathy Results Lab Laboratory Tests 07/09/20 11:31: Glucometer 97 07/09/20 17:57: Glucometer 99 07/09/20 23:31: Glucometer 81 07/10/20 02:50: White Blood Count 12.0H, Red Blood Count 3.96L, Hemoglobin 12.4L, Hematocrit 37L , Mean Corpuscular Volume 94, Mean Corpuscular Hemoglobin 31, Mean Corpuscular Hemoglobin Concent 33, Red Cell Distribution Width 12.7, Platelet Count 211, Mean Platelet Volume 8.7L, Immature Granulocyte % (Auto) 2, Neutrophils (%) (Auto) 79H, Lymphocytes (%) (Auto) 12, Monocytes (%) (Auto) 6, Eosinophils (%) (Auto) 0, Basophils (%) (Auto) 0, Neutrophils # (Auto) 9.4H, Lymphocytes # (Auto) 1.5, Monocytes # (Auto) 0.7, Eosinophils # (Auto) 0.0, Basophils # (Auto) 0.0, Immature Granulocyte # (Auto) 0.3H, Blood Gas Puncture Site LEFT RADIAL, Blood Gas Patient Temperature 36.9, Arterial Blood pH 7.47H, Arterial Blood Partial Pressure CO2 32L, Arterial Blood Partial Pressure O2 65L, Arterial Blood HCO3 23, Arterial Blood Total CO2 23.7, Arterial Blood Oxygen Saturation 92L, Arterial Blood Base Excess -0.6, Lito Test POSITIVE, Blood Gas Ventilator Setting YES, Blood Gas Inspired Oxygen 21, Sodium Level 140, Potassium Level 3.7, Chloride Level 112H, Carbon Dioxide Level 20L, Anion Gap 8, Blood Urea Nitrogen 3L, Creatinine 0.62, Estimat Glomerular Filtration Rate > 60, BUN/Creatinine Ratio 5, Glucose Level 80, Calcium Level 7.9L, Phosphorus Level 2.6, Magnesium Level 1.9, Triglycerides Level 129 Microbiology 07/08/20 Gram Stain - Final, Resulted 07/08/20 Body Fluid Culture - Preliminary, Resulted No growth 07/06/20 Gram Stain - Final, Complete 07/06/20 Sputum Culture - Final, Complete Usual upper respiratory christophe 06/27/20 Urine Culture - Final, Complete NO GROWTH 11/30/20 Blood Culture - Final, Complete No growth Assessment/Plan Assessment/Plan Assess & Plan/Chief Complaint covid ARDS with tracheal stenosis and s/p emergent trach placed. tolerating vent. no right chest tube air leak. has endotracheal tube acting as trachestomy due to scar tissue and depth. if extubated and needs trach collar, unsure of what to due to to complexity/stricture. my recommendatio wound be to refer to a tertiary center however limited due to covid. family deciding on comfort care measures. cont current management for now. Clinical Quality Measures DVT/VTE Risk/Contraindication: Risk Factor Score Per Nursin RFS Level Per Nursing on Admit: 4+=Very High DUC VEGA MD Jul 10, 2020 10:22
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
[2020-07-10] MEDS: ENOXAPARIN 40 MG/0.4 ML (LOVENOX) SYR SQ SCH (14:20)
--- NOTE | 2020-07-10 15:45 | NUR ---
PT PLACED ON TRACH COLOR AT 28% BY RT. SPO2 100% HR 86, RR16. PT TOLERATING CHANGE WELL RESTING WITH EYES CLOSED. RESPONDS WITH SMILE AND OPENING EYES WHEN SPOKEN TO. ABLE TO SQUEEZE RIGHT HAND AND LIFT HEAD OFF OF BED.
--- NOTE | 2020-07-10 18:23 | NUR ---
UPDATED FAMILY ON PT'S CONDITION. PT NOW OFF THE VENTILATOR AND RECEIVING 28% FIO2 VIA TRACH MASK. PT ABLE TO SQUEEZE WITH RIGHT HAND AND SMILES AND HOLDS HEAD UP WHEN SPOKEN TO.
--- NOTE | 2020-07-10 20:00 | NUR ---
PT ASSESSMENT COMPLETED AT THIS TIME. PT IS EXTREMELY DROWSY. HE DOES RESPOND TO STIMULATION. ATTEMPTS TO FC HOWEVER IS SEVERELY WEAK. PT DOES RESPOND TO NOXIOUS STIMULI IN ALL EXTREMITIES. PERRLA 4+ BRISK. #7 ETT SUTURED A TRACH. AREA IS CLEAN AND DRY AT THIS TIME. PT IS ON 28% FIO2 VIA TRACH COLLAR. PT DOES HAVE RIGHT NG THAT IS CURRENTLY CLAMPED. 125 ML OF BILE RESIDUAL ASPIRATED AND RETURNED TO PT. RIGHT CHEST TUBE NOTED, ATRIUM TO WATER SEAL. BOWEL SOUNDS PRESENT X4 QUADS. THERE IS RUQ ILEOSTOMY C LARGE AMOUNT OF LIQUID BROWN GREEN OUTPUT. RODRIGUEZ CATHETER C STRAW YELLOW OUTPUT. PT HAS LEFT TRIPLE LUMEN SUBCLAVIAN CATHETER IN PLACE. FENTANYL, VERSED, AND NS INFUSING. THERE IS ALSO 22G L WRIST SALINE LOCKED. WILL CONTINUE TO MONITOR PATIENT.
[2020-07-11] VITALS (19 sets, daily range): BP systolic 94–150; BP diastolic 59–97
[2020-07-11] MEDS: RT-ALBUTEROL INHALER HFA (VENTOLIN HFA) 18 GM IH SCH ×5 (02:00→21:46)
[2020-07-11 02:46] LABS: BASOPHILS % (AUTO) 0 % (0-10); EOSINOPHILS % (AUTO) 0 % (0-10); HEMATOCRIT 38 % (40-54); HEMOGLOBIN 12.6 g/dL (13.3-17.7); LYMPHOCYTES # (AUTO) 1.7 10^3/uL (1.0-4.0); LYMPHOCYTES % (AUTO) 18 % (12-44); MEAN CORPUSCULAR HEMOGLOBIN 32 pg (25-34); MEAN CORPUSCULAR HGB CONC 33 g/dL (32-36); MEAN CORPUSCULAR VOLUME 96 fL (80-99); MEAN PLATELET VOLUME 8.6 fL (9.0-12.2); MONOCYTES # (AUTO) 0.8 10^3/uL (0.0-1.0); MONOCYTES % (AUTO) 9 % (0-12); NEUTROPHILS # (AUTO) 6.4 10^3/uL (1.8-7.8); NEUTROPHILS % (AUTO) 69 % (42-75); PLATELET COUNT 192 10^3/uL (130-400); WHITE BLOOD COUNT 9.2 10^3/uL (4.3-11.0)
[2020-07-11] MEDS: PIPERACILLIN/TAZOBACTAM (BULK) 4.5 GM in NS (IVPB) 100 ML IV SCH ×3 (02:55→22:10)
[2020-07-11 03:01] LABS: CHLORIDE 113 MMOL/L (98-107); POTASSIUM 3.7 MMOL/L (3.6-5.0); SODIUM 143 MMOL/L (135-145)
[2020-07-11 03:03] LABS: GLUCOSE 87 MG/DL (70-105)
[2020-07-11 03:04] LABS: CARBON DIOXIDE 21 MMOL/L (21-32)
[2020-07-11 03:06] LABS: CREATININE SERUM 0.67 MG/DL (0.60-1.30); GFR ESTIMATED > 60; PHOSPHORUS 2.8 MG/DL (2.3-4.7)
[2020-07-11 03:07] LABS: BUN/CREATININE RATIO 7
[2020-07-11 03:09] LABS: MAGNESIUM 1.8 MG/DL (1.6-2.4)
[2020-07-11 03:15] LABS: VALPROIC ACID 71.4 UG/ML (50.0-100.0)
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
[2020-07-11] MEDS ORDERED: FUROSEMIDE 40 MG/4 ML INJ (LASIX) IVP ONE (04:15)
[2020-07-11] MEDS: LACTATED RINGERS 1,000 ML IV SCH (05:00)
[2020-07-11] MEDS: POTASSIUM CL 10MEQ/50ML IVPB 50 ML IV SCH ×4 (05:01→06:50)
[2020-07-11] MEDS: KCL 20 MEQ TAB (K-DUR) PO SCH (05:01)
[2020-07-11 05:25] LABS: ABG BASE EXCESS 0.6 MMOL/L (-2.5-2.5); ABG OXYGEN SATURATION 80 % (94-100); ABG PCO2 38 MMHG (35-45); ABG PH 7.43 (7.37-7.43); ABG PO2 45 MMHG (79-93); ABG TCO2 25.8 MMOL/L (21.0-31.0)
[2020-07-11 05:27] LABS: ALLENS TEST POSITIVE; INSPIRED O2 8 RA; PATIENT TEMP 36.6; VENTILATOR NO
[2020-07-11] MEDS: LEVOTHYROXINE 50 MCG (LEVOTHROID) TAB PO SCH (06:04)
[2020-07-11] MEDS: MAGNESIUM 1 GM/100 ML IVPB 100 ML IV SCH (06:04)
[2020-07-11] MEDS: PHENYTOIN IV SCH ×6 (08:07→22:10)
[2020-07-11] MEDS: NS IV SCH ×6 (08:07→22:10)
[2020-07-11] MEDS: MICRON FILTER IV SCH ×6 (08:07→22:10)
[2020-07-11] MEDS: VALPROIC ACID SYRUP 250 MG/5 ML UDC PO SCH ×3 (08:14→22:11)
[2020-07-11] MEDS: RIFAXIMIN 550 MG TABLET (XIFAXAN) PO SCH ×2 (08:14→22:11)
[2020-07-11] MEDS: LEVETIRACETAM INJECTION 1,500 MG in NS (IVPB) 100 ML IV SCH ×2 (08:15→22:09)
[2020-07-11] MEDS: FAMOTIDINE 20 MG (PEPCID) TABLET GT SCH ×2 (08:15→22:11)
[2020-07-11] MEDS: CLOBAZAM 10 MG PO SCH ×2 (08:15→22:12)
--- NOTE | 2020-07-11 08:38 | Diagnostic Imaging Report ---
Portable semierect AP chest at 2:12. Indication: Dyspnea. The appearance of the chest has worsened since the prior exam of 07/10/2020 as the atelectasis/infiltrate and fluid involving the right lung base seen previously has increased. There is also somewhat greater involvement of the left lung base by atelectasis/infiltrate and fluid. The upper lungs remain generally clear and the heart is stable. The mediastinum is not widened. The osseous structures are intact. The supportive tubes and lines seen previously are unchanged in position. The tip of the tracheostomy tube does overlie the origin the right mainstem bronchus. IMPRESSION: 1. The chest has worsened since the prior study as is greater involvement of both lung bases by pneumonia/atelectasis and fluid. A followup study would be recommended for continued evaluation. 2. The tip of the tracheostomy tube continues to overlie the origin of the right mainstem bronchus. Dictated by: Dictated on workstation # [id number]
--- NOTE | 2020-07-11 11:45 | Physical Therapy Progress Note ---
Therapy Progress Note Pt still very sedated, but off the ventilator. Non skilled PROM B U/LE in available planes. RAUL LEE PT Jul 11, 2020 11:45
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
[2020-07-11] MEDS: ENOXAPARIN 40 MG/0.4 ML (LOVENOX) SYR SQ SCH (15:40)
[2020-07-12] VITALS (17 sets, daily range): BP systolic 97–125; BP diastolic 67–95
[2020-07-12] MEDS: RT-ALBUTEROL INHALER HFA (VENTOLIN HFA) 18 GM IH SCH ×6 (01:38→22:21)
[2020-07-12] MEDS: PIPERACILLIN/TAZOBACTAM (BULK) 4.5 GM in NS (IVPB) 100 ML IV SCH ×3 (03:40→19:59)
[2020-07-12] MEDS: LACTATED RINGERS 1,000 ML IV SCH (03:40)
[2020-07-12 04:02] LABS: BASOPHILS % (AUTO) 0 % (0-10); EOSINOPHILS % (AUTO) 0 % (0-10); HEMATOCRIT 39 % (40-54); HEMOGLOBIN 13.2 g/dL (13.3-17.7); LYMPHOCYTES # (AUTO) 1.6 10^3/uL (1.0-4.0); LYMPHOCYTES % (AUTO) 16 % (12-44); MEAN CORPUSCULAR HEMOGLOBIN 32 pg (25-34); MEAN CORPUSCULAR HGB CONC 34 g/dL (32-36); MEAN CORPUSCULAR VOLUME 94 fL (80-99); MEAN PLATELET VOLUME 8.4 fL (9.0-12.2); MONOCYTES # (AUTO) 1.1 10^3/uL (0.0-1.0); MONOCYTES % (AUTO) 10 % (0-12); NEUTROPHILS # (AUTO) 7.3 10^3/uL (1.8-7.8); NEUTROPHILS % (AUTO) 71 % (42-75); PLATELET COUNT 195 10^3/uL (130-400); WHITE BLOOD COUNT 10.3 10^3/uL (4.3-11.0)
[2020-07-12 04:10] LABS: CHLORIDE 104 MMOL/L (98-107); POTASSIUM 3.7 MMOL/L (3.6-5.0); SODIUM 137 MMOL/L (135-145)
[2020-07-12 04:12] LABS: CALCIUM 8.5 MG/DL (8.5-10.1)
[2020-07-12 04:13] LABS: ABG BASE EXCESS 4.2 MMOL/L (-2.5-2.5); ABG OXYGEN SATURATION 90 % (94-100); ABG PCO2 40 MMHG (35-45); ABG PH 7.46 (7.37-7.43); ABG PO2 61 MMHG (79-93); ABG TCO2 29.1 MMOL/L (21.0-31.0); GLUCOSE 77 MG/DL (70-105); TRIGLYCERIDES 190 MG/DL (<150)
[2020-07-12 04:14] LABS: CARBON DIOXIDE 25 MMOL/L (21-32)
[2020-07-12 04:16] LABS: CREATININE SERUM 0.73 MG/DL (0.60-1.30); GFR ESTIMATED > 60; PHOSPHORUS 3.2 MG/DL (2.3-4.7)
[2020-07-12 04:17] LABS: ALLENS TEST YES-POS; BUN/CREATININE RATIO 8; INSPIRED O2 28%; VENTILATOR NO
[2020-07-12 04:18] LABS: PATIENT TEMP 37.2
[2020-07-12 04:19] LABS: MAGNESIUM 1.7 MG/DL (1.6-2.4)
[2020-07-12] MEDS: LEVOTHYROXINE 50 MCG (LEVOTHROID) TAB PO SCH (05:41)
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
[2020-07-12] MEDS: MAGNESIUM 1 GM/100 ML IVPB 100 ML IV SCH (06:14)
[2020-07-12] MEDS: POTASSIUM CL 10MEQ/50ML IVPB 50 ML IV SCH (06:14)
[2020-07-12] MEDS: KCL 20 MEQ TAB (K-DUR) PO SCH (06:15)
--- NOTE | 2020-07-12 08:52 | Diagnostic Imaging Report ---
Portable erect AP chest at 759H. INDICATION: Dyspnea The overall appearance of the chest has not changed significantly since the prior exam of 07/11/2020. Both lung bases remain obscured by atelectasis/infiltrate and fluid. The upper lungs are relatively clear. The heart is stable. The mediastinum is not widened. The osseous structures are intact. The supportive tubes and lines seen previously appear similar in position. The tip of the tracheostomy tube continues to overlie the right mainstem bronchus. IMPRESSION: There is persistent involvement of both lung bases by pneumonia/atelectasis and fluid. Overall, there has been no significant change. A follow-up study would be recommended for continued evaluation. Dictated by: Dictated on workstation # [id number]
[2020-07-12] MEDS: LEVETIRACETAM INJECTION 1,500 MG in NS (IVPB) 100 ML IV SCH ×2 (08:59→19:55)
[2020-07-12] MEDS: FAMOTIDINE 20 MG (PEPCID) TABLET GT SCH ×2 (09:14→19:59)
[2020-07-12] MEDS: VALPROIC ACID SYRUP 250 MG/5 ML UDC PO SCH ×3 (09:15→20:00)
[2020-07-12] MEDS: CLOBAZAM 10 MG PO SCH ×2 (09:15→20:00)
[2020-07-12] MEDS: RIFAXIMIN 550 MG TABLET (XIFAXAN) PO SCH ×2 (09:15→19:59)
[2020-07-12] MEDS: NS IV SCH ×6 (09:24→19:59)
[2020-07-12] MEDS: PHENYTOIN IV SCH ×6 (09:24→19:59)
[2020-07-12] MEDS: MICRON FILTER IV SCH ×6 (09:24→19:59)
--- NOTE | 2020-07-12 10:26 | Physical Therapy Progress Note ---
Therapy Progress Note PROM bilateral extremities all planes in supine with repositioning. Restraints in place bilateral UE. JASMIN COPELAND PT Jul 12, 2020 10:26
[2020-07-12] MEDS: aCETylcysteine 20% (MUCOMYST) 30ML SOLN VIAL INH SCH ×2 (13:31→22:21)
--- NOTE | 2020-07-12 14:00 | NUR ---
THIS RN INFORMED DR MARCUM THAT PT WAS UNABLE TO TAKE PO MEDS THIS AM. Addendum: 07/12/20 at 1913 by JOANNE QUIROGA RN DISREGARD NOTE, ENTERED ON WRONG PT
[2020-07-12] MEDS: ENOXAPARIN 40 MG/0.4 ML (LOVENOX) SYR SQ SCH (16:23)
[2020-07-13] VITALS (30 sets, daily range): BP systolic 79–125; BP diastolic 50–85
[2020-07-13] MEDS ORDERED: NS IV 500 ML 500 ML ONE (01:30)
[2020-07-13] MEDS: NS IV 500 ML 500 ML IV SCH ×2 (01:46→18:48)
[2020-07-13] MEDS: NOREPINEPHRINE 4 MG/250 ML 250 ML IV SCH ×3 (02:43→16:46)
[2020-07-13] MEDS: RT-ALBUTEROL INHALER HFA (VENTOLIN HFA) 18 GM IH SCH ×6 (02:45→21:58)
[2020-07-13] MEDS: aCETylcysteine 20% (MUCOMYST) 30ML SOLN VIAL INH SCH ×4 (02:45→18:56)
[2020-07-13 03:10] LABS: ABG BASE EXCESS 2.1 MMOL/L (-2.5-2.5); ABG OXYGEN SATURATION 77 % (94-100); ABG PCO2 39 MMHG (35-45); ABG PH 7.43 (7.37-7.43); ABG PO2 46 MMHG (79-93); ABG TCO2 27.3 MMOL/L (21.0-31.0)
[2020-07-13 03:14] LABS: ALLENS TEST YES-POS; INSPIRED O2 45%; PATIENT TEMP 36.5; VENTILATOR YES
[2020-07-13 03:23] LABS: BASOPHILS % (AUTO) 0 % (0-10); EOSINOPHILS % (AUTO) 0 % (0-10); HEMATOCRIT 36 % (40-54); HEMOGLOBIN 12.1 g/dL (13.3-17.7); LYMPHOCYTES # (AUTO) 1.9 10^3/uL (1.0-4.0); LYMPHOCYTES % (AUTO) 20 % (12-44); MEAN CORPUSCULAR HEMOGLOBIN 32 pg (25-34); MEAN CORPUSCULAR HGB CONC 34 g/dL (32-36); MEAN CORPUSCULAR VOLUME 94 fL (80-99); MEAN PLATELET VOLUME 8.7 fL (9.0-12.2); MONOCYTES # (AUTO) 1.4 10^3/uL (0.0-1.0); MONOCYTES % (AUTO) 15 % (0-12); NEUTROPHILS # (AUTO) 5.8 10^3/uL (1.8-7.8); NEUTROPHILS % (AUTO) 61 % (42-75); PLATELET COUNT 169 10^3/uL (130-400); WHITE BLOOD COUNT 9.4 10^3/uL (4.3-11.0)
[2020-07-13 03:29] LABS: CHLORIDE 106 MMOL/L (98-107); POTASSIUM 3.7 MMOL/L (3.6-5.0); SODIUM 137 MMOL/L (135-145)
[2020-07-13 03:30] LABS: CALCIUM 8.2 MG/DL (8.5-10.1); GLUCOSE 86 MG/DL (70-105)
[2020-07-13 03:32] LABS: CARBON DIOXIDE 24 MMOL/L (21-32)
[2020-07-13 03:34] LABS: CREATININE SERUM 0.74 MG/DL (0.60-1.30); GFR ESTIMATED > 60
[2020-07-13 03:35] LABS: BUN/CREATININE RATIO 14
[2020-07-13 03:36] LABS: MAGNESIUM 1.8 MG/DL (1.6-2.4)
[2020-07-13] MEDS: LACTATED RINGERS 1,000 ML IV SCH (03:57)
[2020-07-13] MEDS: PIPERACILLIN/TAZOBACTAM (BULK) 4.5 GM in NS (IVPB) 100 ML IV SCH (03:57)
[2020-07-13] MEDS: POTASSIUM CL 10MEQ/50ML IVPB 50 ML IV SCH (05:04)
[2020-07-13] MEDS: MAGNESIUM 1 GM/100 ML IVPB 100 ML IV SCH (05:04)
[2020-07-13] MEDS: KCL 20 MEQ TAB (K-DUR) PO SCH (05:04)
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
[2020-07-13] MEDS: LEVOTHYROXINE 50 MCG (LEVOTHROID) TAB PO SCH (06:29)
[2020-07-13] MEDS: HYDROCORTISONE 100 MG/2 ML (Solu-CORTEF) VIAL IV SCH ×3 (06:31→22:38)
[2020-07-13] MEDS: fentaNYL INJECTION 100 MCG/2 ML AMP IVP PRN ×2 (06:59→21:44)
--- NOTE | 2020-07-13 08:15 | Diagnostic Imaging Report ---
EXAMINATION: Portable erect AP chest at 1:57 AM INDICATION: Dyspnea As on the prior exam of 07/12/2020, the patient is rotated. There does seem to be slightly greater involvement of the right lung base by atelectasis/infiltrate and fluid than noted on the prior exam. The left lower lobe atelectasis/infiltrate and fluid seen previously is essentially no different. The upper lungs are relatively clear although there may be a new area of pneumonia/atelectasis developing in the left perihilar region. The heart is stable in size. The supportive tubes and lines are unchanged in position. IMPRESSION: The appearance of the chest has worsened somewhat since the prior exam as there is slightly greater involvement of the right lung base by pneumonia/atelectasis and fluid. There may also be a new area of pneumonia/atelectasis developing in the left perihilar region. A followup exam would be recommended for continued evaluation. Dictated by: Dictated on workstation # [id number]
[2020-07-13] MEDS: NS IV SCH ×6 (09:08→20:55)
[2020-07-13] MEDS: PHENYTOIN IV SCH ×6 (09:08→20:55)
[2020-07-13] MEDS: MICRON FILTER IV SCH ×6 (09:08→20:55)
[2020-07-13] MEDS: LEVETIRACETAM INJECTION 1,500 MG in NS (IVPB) 100 ML IV SCH ×2 (09:09→20:56)
[2020-07-13] MEDS: VALPROIC ACID SYRUP 250 MG/5 ML UDC PO SCH ×3 (09:10→20:56)
[2020-07-13] MEDS: FAMOTIDINE 20 MG (PEPCID) TABLET GT SCH ×2 (09:10→20:55)
[2020-07-13] MEDS: RIFAXIMIN 550 MG TABLET (XIFAXAN) PO SCH ×2 (09:10→20:55)
[2020-07-13] MEDS: CLOBAZAM 10 MG PO SCH ×2 (09:10→20:56)
--- NOTE | 2020-07-13 11:34 | Physical Therapy Progress Note ---
Therapy Progress Note PT performed PROM to bilateral extremities, restraints on at the end of tx. Proper PPE donned before entering room. Patient O2 sats did not decrease during ROM. ADOLFO JOHNSON PT Jul 13, 2020 11:34
--- NOTE | 2020-07-13 12:40 | Progress Note ---
Subjective Date Seen by a Provider: Jul 13, 2020 Time Seen by a Provider: 12:30 Subjective/Events-last exam patient otherwise stable. slight worsening cxr with consolidation/fluid and likely pneumonia. no air leak on CT. Objective Exam Vital Signs Date Time Temp Pulse Resp B/P (MAP) Pulse Ox O2 Delivery O2 Flow Rate FiO2 07/13/20 12:11 36.0 07/13/20 12:00 78 17 84/51 (62) 94 Mechanical Ventilator 80.00 07/13/20 11:57 Mechanical Ventilator 80.00 07/13/20 11:00 90 17 101/69 (80) 94 Mechanical Ventilator 80.00 07/13/20 10:53 92 22 93 45 07/13/20 10:33 Mechanical Ventilator 80.00 07/13/20 10:00 77 21 98/68 (78) 94 Mechanical Ventilator 40.00 07/13/20 09:00 62 22 106/70 (82) 94 Mechanical Ventilator 40.00 07/13/20 08:12 35.9 07/13/20 08:00 64 21 105/73 (84) 94 Mechanical Ventilator 40.00 07/13/20 08:00 94 Mechanical Ventilator 45 07/13/20 07:18 65 22 93 45 07/13/20 07:00 72 21 115/78 (90) 93 Mechanical Ventilator 40.00 07/13/20 06:43 61 07/13/20 06:32 65 80/59 07/13/20 06:00 73 21 80/56 (64) 92 Mechanical Ventilator 40.00 07/13/20 05:00 65 21 89/66 (74) 95 Mechanical Ventilator 40.00 07/13/20 04:00 77 21 82/59 (67) 92 Mechanical Ventilator 40.00 07/13/20 03:15 81 21 106/76 (86) 94 Mechanical Ventilator 40.00 07/13/20 02:52 80 22 93 40 07/13/20 02:00 77 15 110/84 (94) 90 Mechanical Ventilator 40.00 07/13/20 01:51 76 36 125/85 (99) 92 Mechanical Ventilator 40.00 07/13/20 01:38 71 29 79/55 (63) 92 Mechanical Ventilator 40.00 07/13/20 01:00 73 07/13/20 01:00 73 23 82/59 (66) 92 Mechanical Ventilator 40.00 07/13/20 00:18 77 25 91/60 (69) 91 Mechanical Ventilator 40.00 07/13/20 00:00 36.5 07/13/20 00:00 79 29 93/65 (74) 92 Mechanical Ventilator 40.00 07/12/20 23:00 84 21 102/82 (89) 95 Mechanical Ventilator 40.00 07/12/20 22:21 80 22 95 40 07/12/20 22:00 80 21 100/79 (86) 94 Mechanical Ventilator 40.00 07/12/20 21:00 86 22 105/83 (90) 94 Mechanical Ventilator 40.00 07/12/20 20:00 86 21 113/85 (98) 98 Mechanical Ventilator 40.00 07/12/20 20:00 95 Mechanical Ventilator 40 07/12/20 19:15 37.3 07/12/20 19:00 87 07/12/20 19:00 87 21 109/87 (93) 98 Mechanical Ventilator 40.00 07/12/20 18:29 91 22 98 40 07/12/20 18:00 80 22 97/67 (77) 94 Mechanical Ventilator 40.00 07/12/20 17:00 82 22 105/76 (86) 100 Mechanical Ventilator 40.00 07/12/20 16:00 84 21 101/70 (80) 94 Mechanical Ventilator 40.00 07/12/20 16:00 37.0 07/12/20 15:00 92 22 110/75 (87) 96 Mechanical Ventilator 40.00 07/12/20 14:00 93 29 109/72 (84) 98 Mechanical Ventilator 40.00 07/12/20 13:42 Mechanical Ventilator 40.00 07/12/20 13:32 90 22 94 40 07/12/20 13:00 98 26 115/81 (92) 95 Trach Collar 28.00 I & O 07/13/20 07:00 Intake Total 650 ml Output Total 2220 ml Balance -1570 ml Capillary Refill : Less Than 3 SecondsLess Than 3 Seconds General Appearance: No Apparent Distress HEENT: Normal ENT Inspection Neck: Full Range of Motion Respiratory: Decreased Breath Sounds, Rhonci Cardiovascular: Regular Rate, Rhythm Gastrointestinal: normal bowel sounds, non tender, soft Extremity: Normal Capillary Refill Skin: Normal Color Lymphatic: No Adenopathy Results Lab Laboratory Tests 07/12/20 13:13: Glucometer 105 07/12/20 18:20: Glucometer 87 07/12/20 23:46: Glucometer 87 07/13/20 02:50: White Blood Count 9.4, Red Blood Count 3.83L, Hemoglobin 12.1L, Hematocrit 36L, Mean Corpuscular Volume 94, Mean Corpuscular Hemoglobin 32, Mean Corpuscular Hemoglobin Concent 34, Red Cell Distribution Width 12.3, Platelet Count 169, Mean Platelet Volume 8.7L, Immature Granulocyte % (Auto) 3, Neutrophils (%) (Auto) 61, Lymphocytes (%) (Auto) 20, Monocytes (%) (Auto) 15H, Eosinophils (%) (Auto) 0, Basophils (%) (Auto) 0, Neutrophils # (Auto) 5.8, Lymphocytes # (Auto) 1.9, Monocytes # (Auto) 1.4H, Eosinophils # (Auto) 0.0, Basophils # (Auto) 0.0, Immature Granulocyte # (Auto) 0.3H, Blood Gas Puncture Site LEFT RADIAL, Blood Gas Patient Temperature 36.5, Arterial Blood pH 7.43, Arterial Blood Partial Pressure CO2 39, Arterial Blood Partial Pressure O2 46L, Arterial Blood HCO3 26, Arterial Blood Total CO2 27.3, Arterial Blood Oxygen Saturation 77L, Arterial Blood Base Excess 2.1, Lito Test YES-POS, Blood Gas Ventilator Setting YES, Blood Gas Inspired Oxygen 45%, Sodium Level 137, Potassium Level 3.7, Chloride Level 106, Carbon Dioxide Level 24, Anion Gap 7, Blood Urea Nitrogen 10, Creatinine 0.74, Estimat Glomerular Filtration Rate > 60, BUN/Creatinine Ratio 14, Glucose Level 86, Calcium Level 8.2L, Phosphorus Level 3.0, Magnesium Level 1.8 07/13/20 11:17: Glucometer 191H Microbiology 07/08/20 Gram Stain - Final, Complete 07/08/20 Body Fluid Culture - Final, Complete No growth 07/06/20 Gram Stain - Final, Complete 07/06/20 Sputum Culture - Final, Complete Usual upper respiratory christophe 06/27/20 Urine Culture - Final, Complete NO GROWTH 06/27/20 Blood Culture - Final, Complete No growth Assessment/Plan Assessment/Plan Assess & Plan/Chief Complaint covid ARDS with tracheal stenosis and s/p emergent trach placed. tolerating vent. no right chest tube air leak. slight worsening cxr with likely right sided pneumonia. will keep chest tube in for now. has endotracheal tube acting as trachestomy due to scar tissue and depth. if extubated and needs trach collar, unsure of what to due to to complexity/stricture. my recommendation wound be to refer to a tertiary center however limited due to covid. family deciding on comfort care measures. cont current management for now. Clinical Quality Measures DVT/VTE Risk/Contraindication: Risk Factor Score Per Nursin RFS Level Per Nursing on Admit: 4+=Very High DUC VEGA MD Jul 13, 2020 12:40
[2020-07-13] MEDS: ENOXAPARIN 40 MG/0.4 ML (LOVENOX) SYR SQ SCH (16:00)
[2020-07-14] VITALS (23 sets, daily range): BP systolic 62–146; BP diastolic 63–96
[2020-07-14] MEDS: NOREPINEPHRINE 4 MG/250 ML 250 ML IV SCH ×3 (01:02→18:03)
[2020-07-14] MEDS: RT-ALBUTEROL INHALER HFA (VENTOLIN HFA) 18 GM IH SCH ×6 (02:19→23:12)
[2020-07-14] MEDS: aCETylcysteine 20% (MUCOMYST) 30ML SOLN VIAL INH SCH ×4 (02:20→18:23)
[2020-07-14 02:59] LABS: ABG BASE EXCESS -0.7 MMOL/L (-2.5-2.5); ABG OXYGEN SATURATION 99 % (94-100); ABG PCO2 31 MMHG (35-45); ABG PH 7.47 (7.37-7.43); ABG PO2 135 MMHG (79-93); ABG TCO2 23.5 MMOL/L (21.0-31.0)
[2020-07-14 03:00] LABS: BASOPHILS % (AUTO) 0 % (0-10); EOSINOPHILS % (AUTO) 0 % (0-10); HEMATOCRIT 38 % (40-54); HEMOGLOBIN 13.2 g/dL (13.3-17.7); LYMPHOCYTES # (AUTO) 1.3 10^3/uL (1.0-4.0); LYMPHOCYTES % (AUTO) 11 % (12-44); MEAN CORPUSCULAR HEMOGLOBIN 32 pg (25-34); MEAN CORPUSCULAR HGB CONC 35 g/dL (32-36); MEAN CORPUSCULAR VOLUME 92 fL (80-99); MEAN PLATELET VOLUME 8.7 fL (9.0-12.2); MONOCYTES # (AUTO) 0.8 10^3/uL (0.0-1.0); MONOCYTES % (AUTO) 6 % (0-12); NEUTROPHILS # (AUTO) 9.7 10^3/uL (1.8-7.8); NEUTROPHILS % (AUTO) 78 % (42-75); PLATELET COUNT 245 10^3/uL (130-400); WHITE BLOOD COUNT 12.3 10^3/uL (4.3-11.0)
[2020-07-14 03:01] LABS: INSPIRED O2 45%
[2020-07-14 03:02] LABS: PATIENT TEMP 36.6; VENTILATOR YES
[2020-07-14] MEDS: fentaNYL INJECTION 100 MCG/2 ML AMP IVP PRN (03:05)
[2020-07-14 03:16] LABS: BUN/CREATININE RATIO 17; CALCIUM 8.4 MG/DL (8.5-10.1); CARBON DIOXIDE 21 MMOL/L (21-32); CHLORIDE 108 MMOL/L (98-107); CREATININE SERUM 0.78 MG/DL (0.60-1.30); GFR ESTIMATED > 60; GLUCOSE 203 MG/DL (70-105); PHOSPHORUS 2.5 MG/DL (2.3-4.7); POTASSIUM 4.2 MMOL/L (3.6-5.0); SODIUM 140 MMOL/L (135-145); TRIGLYCERIDES 198 MG/DL (<150)
--- NOTE | 2020-07-14 03:42 | NUR ---
PT ABLE TO FOLLOW COMMANDS. WHEN ASKED TO SQUEEZE MY HAND WITH HIS RIGHT HAND HE DID SO WITH A TIGHT GRASP
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
[2020-07-14] MEDS ORDERED: LACTATED RINGERS 1,000 ML IV SCH (06:15)
[2020-07-14] MEDS: POTASSIUM CL 10MEQ/50ML IVPB 50 ML IV SCH (06:21)
[2020-07-14] MEDS: MAGNESIUM 1 GM/100 ML IVPB 100 ML IV SCH (06:21)
[2020-07-14] MEDS: KCL 20 MEQ TAB (K-DUR) PO SCH (06:21)
[2020-07-14] MEDS: HYDROCORTISONE 100 MG/2 ML (Solu-CORTEF) VIAL IV SCH ×3 (06:25→21:53)
[2020-07-14] MEDS: LEVOTHYROXINE 50 MCG (LEVOTHROID) TAB PO SCH (06:25)
[2020-07-14] MEDS: LACTATED RINGERS 1,000 ML IV SCH ×2 (06:26→20:30)
--- NOTE | 2020-07-14 07:41 | Diagnostic Imaging Report ---
CHEST 1 VIEW, AP/PA ONLY Indication: Dyspnea Comparison: 07/13/2020 Findings: Stable tracheostomy and enteric tubes. Stable left subclavian central venous catheter. Right chest tube is in stable position. No appreciable pneumothorax. Small bilateral pleural effusions are unchanged. Bilateral perihilar and basilar opacities have not substantially changed either. Stable vagal nerve stimulator. Impression: 1. Stable support devices. 2. Unchanged bilateral pleural effusions and basilar opacities. Dictated by: Dictated on workstation # [id number]
[2020-07-14] MEDS ORDERED: fentaNYL DRIP PRE-MIX 250 ML IV SCH (07:45)
--- NOTE | 2020-07-14 09:33 | Physical Therapy Progress Note ---
Therapy Progress Note PT performed PROM to bilateral extremities, restraints on at the end of tx. JASMIN COPELAND PT Jul 14, 2020 09:33
[2020-07-14] MEDS: RIFAXIMIN 550 MG TABLET (XIFAXAN) PO SCH ×2 (10:30→21:49)
[2020-07-14 10:40] LABS: ABG BASE EXCESS 0.9 MMOL/L (-2.5-2.5); ABG OXYGEN SATURATION 96 % (94-100); ABG PCO2 32 MMHG (35-45); ABG PH 7.48 (7.37-7.43); ABG PO2 75 MMHG (79-93); ABG TCO2 25.2 MMOL/L (21.0-31.0); ALLENS TEST POSITIVE; INSPIRED O2 45%; PATIENT TEMP 97.8; VENTILATOR YES
[2020-07-14] MEDS: VALPROIC ACID SYRUP 250 MG/5 ML UDC PO SCH ×3 (10:42→21:50)
[2020-07-14] MEDS: FAMOTIDINE 20 MG (PEPCID) TABLET GT SCH ×2 (10:43→21:49)
[2020-07-14] MEDS: PHENYTOIN IV SCH ×6 (10:43→21:54)
[2020-07-14] MEDS: MICRON FILTER IV SCH ×6 (10:43→21:54)
[2020-07-14] MEDS: NS IV SCH ×6 (10:43→21:54)
[2020-07-14] MEDS: CLOBAZAM 10 MG PO SCH ×2 (10:44→22:06)
[2020-07-14] MEDS: LEVETIRACETAM INJECTION 1,500 MG in NS (IVPB) 100 ML IV SCH ×2 (10:44→21:51)
[2020-07-14] MEDS: NS IV 500 ML 500 ML IV SCH (11:44)
--- NOTE | 2020-07-14 12:12 | Progress Note ---
Subjective Date Seen by a Provider: Jul 14, 2020 Time Seen by a Provider: 12:00 Subjective/Events-last exam doing ok. on vent/sedated. clinically stable. Objective Exam Vital Signs Date Time Temp Pulse Resp B/P (MAP) Pulse Ox O2 Delivery O2 Flow Rate FiO2 07/14/20 12:00 36.6 77 21 107/67 (80) 93 Mechanical Ventilator 45.00 07/14/20 11:18 36.6 07/14/20 11:00 73 21 116/80 (92) 92 Mechanical Ventilator 45.00 07/14/20 10:20 70 22 92 45 07/14/20 10:00 69 21 109/78 (88) 92 Mechanical Ventilator 45.00 07/14/20 09:00 77 21 110/76 (87) 92 Mechanical Ventilator 45.00 07/14/20 08:00 72 21 109/76 (87) 92 Mechanical Ventilator 45.00 07/14/20 07:16 36.2 07/14/20 07:00 84 07/14/20 07:00 82 19 114/77 (89) 93 Mechanical Ventilator 45.00 07/14/20 06:40 79 22 94 45 07/14/20 06:00 55 19 120/76 (91) 96 Mechanical Ventilator 45.00 07/14/20 05:00 58 19 121/79 (93) 96 Mechanical Ventilator 45.00 07/14/20 04:00 58 15 120/82 (95) 95 Mechanical Ventilator 45.00 07/14/20 03:00 73 18 124/83 (97) 93 Mechanical Ventilator 45.00 07/14/20 02:48 85 117/80 07/14/20 02:20 75 26 94 45 07/14/20 02:00 61 22 146/95 (112) 93 Mechanical Ventilator 45.00 07/14/20 01:00 71 24 113/68 (83) 92 Mechanical Ventilator 45.00 07/14/20 01:00 71 07/14/20 00:00 75 24 112/76 (88) 93 Mechanical Ventilator 45.00 07/13/20 23:00 59 22 120/76 (91) 93 Mechanical Ventilator 45.00 07/13/20 22:00 68 25 89/59 (69) 94 Mechanical Ventilator 45.00 07/13/20 21:58 68 22 94 45 07/13/20 21:15 80 21 100/72 (81) 95 Mechanical Ventilator 45.00 07/13/20 21:00 78 21 95 Mechanical Ventilator 45.00 07/13/20 20:00 63 21 95 Mechanical Ventilator 45.00 07/13/20 20:00 94 Mechanical Ventilator 45 07/13/20 19:58 36.6 07/13/20 19:00 64 07/13/20 19:00 63 22 94 Mechanical Ventilator 45.00 07/13/20 18:56 65 22 94 45 07/13/20 18:00 69 21 94 Mechanical Ventilator 80.00 07/13/20 17:00 66 21 95/61 (72) 93 Mechanical Ventilator 80.00 07/13/20 16:46 65 07/13/20 16:00 75 21 89/57 (68) 93 Mechanical Ventilator 80.00 07/13/20 15:20 79 23 90 45 07/13/20 15:00 79 21 111/77 (88) 93 Mechanical Ventilator 80.00 07/13/20 14:00 59 21 83/54 (64) 96 Mechanical Ventilator 80.00 07/13/20 13:00 64 21 81/50 (60) 95 Mechanical Ventilator 80.00 07/13/20 12:36 69 07/13/20 12:11 36.0 I & O 07/14/20 07:00 Intake Total 995 ml Output Total 3555 ml Balance -2560 ml Capillary Refill : Less Than 3 SecondsLess Than 3 Seconds General Appearance: No Apparent Distress HEENT: Normal ENT Inspection Neck: Full Range of Motion Respiratory: Chest Non Tender, Decreased Breath Sounds Cardiovascular: Regular Rate, Rhythm Gastrointestinal: normal bowel sounds, non tender, soft Extremity: Normal Capillary Refill Neurologic/Psychiatric: Alert Skin: Normal Color Lymphatic: No Adenopathy Results Lab Laboratory Tests 07/13/20 17:29: Glucometer 172H 07/13/20 23:23: Glucometer 152H 07/14/20 02:40: White Blood Count 12.3H, Red Blood Count 4.10L, Hemoglobin 13.2L, Hematocrit 38L , Mean Corpuscular Volume 92, Mean Corpuscular Hemoglobin 32, Mean Corpuscular Hemoglobin Concent 35, Red Cell Distribution Width 11.9, Platelet Count 245, Mean Platelet Volume 8.7L, Immature Granulocyte % (Auto) 5, Neutrophils (%) (Auto) 78H, Lymphocytes (%) (Auto) 11L, Monocytes (%) (Auto) 6, Eosinophils (%) (Auto) 0, Basophils (%) (Auto) 0, Neutrophils # (Auto) 9.7H, Lymphocytes # (Auto) 1.3, Monocytes # (Auto) 0.8, Eosinophils # (Auto) 0.0, Basophils # (Auto) 0.0, Immature Granulocyte # (Auto) 0.6H, Blood Gas Puncture Site RT RADIAL, Blood Gas Patient Temperature 36.6, Arterial Blood pH 7.47H, Arterial Blood Partial Pressure CO2 31L, Arterial Blood Partial Pressure O2 135H, Arterial Blood HCO3 23, Arterial Blood Total CO2 23.5, Arterial Blood Oxygen Saturation 99, Arterial Blood Base Excess -0.7, Lito Test NA, Blood Gas Ventilator Setting YES, Blood Gas Inspired Oxygen 45%, Sodium Level 140, Potassium Level 4.2, Chloride Level 108H, Carbon Dioxide Level 21, Anion Gap 11, Blood Urea Nitrogen 13, Creatinine 0.78, Estimat Glomerular Filtration Rate > 60, BUN/Creatinine Ratio 17, Glucose Level 203H, Calcium Level 8.4L, Phosphorus Level 2.5, Magnesium Level 2.0, Triglycerides Level 198H, Procalcitonin 0.05 07/14/20 06:34: Glucometer 161H 07/14/20 10:05: Blood Gas Puncture Site RIGHT RADIAL, Blood Gas Patient Temperature 97.8, Arterial Blood pH 7.48H, Arterial Blood Partial Pressure CO2 32L, Arterial Blood Partial Pressure O2 75L, Arterial Blood HCO3 24, Arterial Blood Total CO2 25.2, Arterial Blood Oxygen Saturation 96, Arterial Blood Base Excess 0.9, Lito Test POSITIVE, Blood Gas Ventilator Setting YES, Blood Gas Inspired Oxygen 45% 07/14/20 10:45: Coronavirus 2019 (NII) Negative 07/14/20 11:17: Glucometer 134H Microbiology 07/08/20 Gram Stain - Final, Complete 07/08/20 Body Fluid Culture - Final, Complete No growth 07/06/20 Gram Stain - Final, Complete 07/06/20 Sputum Culture - Final, Complete Usual upper respiratory christophe 06/27/20 Urine Culture - Final, Complete NO GROWTH 06/27/20 Blood Culture - Final, Complete No growth Assessment/Plan Assessment/Plan Assess & Plan/Chief Complaint covid ARDS with tracheal stenosis and s/p emergent trach placed. tolerating vent. no right chest tube air leak. slight worsening cxr with likely right sided pneumonia. will keep chest tube in for now. has endotracheal tube acting as trachestomy due to scar tissue and depth. if extubated and needs trach collar, unsure of what to due to to complexity/stricture. my recommendation wound be to refer to a tertiary center however limited due to covid. family deciding on comfort care measures. cont current management for now. Clinical Quality Measures DVT/VTE Risk/Contraindication: Risk Factor Score Per Nursin RFS Level Per Nursing on Admit: 4+=Very High DUC VEGA MD Jul 14, 2020 12:12
[2020-07-14] MEDS: ENOXAPARIN 40 MG/0.4 ML (LOVENOX) SYR SQ SCH (18:03)
--- NOTE | 2020-07-14 18:13 | NUR ---
0945 - PATIENT REPORT GIVEN TO LOU HARPER FROM [facility] 1400 - PATIENT LEFT WITH EMS FOR TRANSFER TO [facility] 1740 - REPORT RECEIVED FROM SANTANA GONZALES RN FROM [facility]. ON STATUS OF PATIENT POST OP. PER REPORT JJ KNIGHT PLACED SIZE 6 EXTRA LARGE WITH CUFF. PATIENT GIVEN 1 LITER BOLUS. D/C INSTRUCTIONS FROM DR BROWN TO SUCTION EVERY 2 HOURS.
--- NOTE | 2020-07-14 19:35 | NUR ---
Patient has arrived back from [place] after trach placement. Placed on ventilator and bedside monitor.
--- NOTE | 2020-07-14 20:28 | Diagnostic Imaging Report ---
INDICATION: Tracheostomy tube replacement. COMPARISON: Earlier the same day FINDINGS: Single frontal radiographic view of the chest was obtained and demonstrates indwelling tracheostomy tube with tip at the level of the clavicular heads. Gastric tube is seen with tip and side-port likely within the lumen of the stomach. Right-sided large bore chest tube is also noted. There are moderate bibasilar effusions, right greater than left. There is no pneumothorax. Cardiac silhouette and pulmonary vasculature remain prominent. IMPRESSION: 1. Lines and tubes as above. 2. Moderate bibasilar effusions, right greater than left. 3. Cardiomegaly with vascular congestion. Dictated by: Dictated on workstation # [id number]
[2020-07-14 23:21] LABS: ABG BASE EXCESS -7.5 MMOL/L (-2.5-2.5); ABG PCO2 22 MMHG (35-45); ABG PH 7.47 (7.37-7.43); ABG PO2 141 MMHG (79-93); ABG TCO2 16.7 MMOL/L (21.0-31.0)
[2020-07-14 23:48] LABS: ALLENS TEST POS; INSPIRED O2 45%; PATIENT TEMP 35.1; VENTILATOR YES
[2020-07-15] VITALS (66 sets, daily range): BP systolic 62–157; BP diastolic 53–97
[2020-07-15] MEDS: NOREPINEPHRINE 4 MG/250 ML 250 ML IV SCH ×4 (01:11→22:58)
[2020-07-15] MEDS: RT-ALBUTEROL INHALER HFA (VENTOLIN HFA) 18 GM IH SCH ×6 (02:16→21:52)
[2020-07-15] MEDS: aCETylcysteine 20% (MUCOMYST) 30ML SOLN VIAL INH SCH ×4 (02:16→21:52)
[2020-07-15] MEDS: NS IV 500 ML 500 ML IV SCH ×2 (03:36→17:26)
[2020-07-15 03:42] LABS: BASOPHILS % (AUTO) 0 % (0-10); EOSINOPHILS % (AUTO) 0 % (0-10); HEMATOCRIT 35 % (40-54); HEMOGLOBIN 11.8 g/dL (13.3-17.7); LYMPHOCYTES # (AUTO) 1.2 10^3/uL (1.0-4.0); LYMPHOCYTES % (AUTO) 13 % (12-44); MEAN CORPUSCULAR HEMOGLOBIN 32 pg (25-34); MEAN CORPUSCULAR HGB CONC 34 g/dL (32-36); MEAN CORPUSCULAR VOLUME 95 fL (80-99); MEAN PLATELET VOLUME 8.5 fL (9.0-12.2); MONOCYTES # (AUTO) 0.7 10^3/uL (0.0-1.0); MONOCYTES % (AUTO) 7 % (0-12); NEUTROPHILS # (AUTO) 7.5 10^3/uL (1.8-7.8); NEUTROPHILS % (AUTO) 77 % (42-75); PLATELET COUNT 144 10^3/uL (130-400); WHITE BLOOD COUNT 9.7 10^3/uL (4.3-11.0)
[2020-07-15 03:44] LABS: ABG BASE EXCESS 0.8 MMOL/L (-2.5-2.5); ABG OXYGEN SATURATION 98 % (94-100); ABG PCO2 32 MMHG (35-45); ABG PH 7.49 (7.37-7.43); ABG PO2 83 MMHG (79-93); ABG TCO2 25.3 MMOL/L (21.0-31.0)
[2020-07-15 03:51] LABS: ALLENS TEST YES-POS; INSPIRED O2 45%; PATIENT TEMP 35.6; VENTILATOR YES
[2020-07-15 04:15] LABS: CHLORIDE 108 MMOL/L (98-107); POTASSIUM 4.2 MMOL/L (3.6-5.0); SODIUM 139 MMOL/L (135-145)
[2020-07-15 04:17] LABS: CALCIUM 8.2 MG/DL (8.5-10.1); GLUCOSE 102 MG/DL (70-105)
[2020-07-15 04:19] LABS: CARBON DIOXIDE 22 MMOL/L (21-32)
[2020-07-15 04:21] LABS: CREATININE SERUM 0.66 MG/DL (0.60-1.30); GFR ESTIMATED > 60; PHOSPHORUS 3.2 MG/DL (2.3-4.7)
[2020-07-15 04:22] LABS: BUN/CREATININE RATIO 26
[2020-07-15 04:23] LABS: MAGNESIUM 1.8 MG/DL (1.6-2.4)
--- NOTE | 2020-07-15 05:53 | Diagnostic Imaging Report ---
Indication: Respiratory failure Portable chest 1:05 AM Patient has a tracheostomy tube. There is NG tube that enters the stomach. Left subclavian central line tip projects over the SVC. There is a thoracostomy tube in the right lower chest. There is some atelectasis at both lung bases. Small effusions cannot be excluded. There is no pneumothorax. IMPRESSION: Bibasilar atelectasis +/- effusions. No significant change from the previous day. Dictated by: Dictated on workstation # [id number]
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
[2020-07-15] MEDS: POTASSIUM CL 10MEQ/50ML IVPB 50 ML IV SCH (06:38)
[2020-07-15] MEDS: MAGNESIUM 1 GM/100 ML IVPB 100 ML IV SCH (06:39)
[2020-07-15] MEDS: KCL 20 MEQ TAB (K-DUR) PO SCH (06:39)
[2020-07-15] MEDS: LEVOTHYROXINE 50 MCG (LEVOTHROID) TAB PO SCH (07:12)
[2020-07-15] MEDS: HYDROCORTISONE 100 MG/2 ML (Solu-CORTEF) VIAL IV SCH ×3 (07:12→22:58)
[2020-07-15] MEDS: MICRON FILTER IV SCH ×6 (08:11→20:17)
[2020-07-15] MEDS: RIFAXIMIN 550 MG TABLET (XIFAXAN) PO SCH ×2 (08:11→20:13)
[2020-07-15] MEDS: NS IV SCH ×6 (08:11→20:17)
[2020-07-15] MEDS: PHENYTOIN IV SCH ×6 (08:11→20:17)
[2020-07-15] MEDS: FAMOTIDINE 20 MG (PEPCID) TABLET GT SCH ×2 (08:11→20:13)
[2020-07-15] MEDS: VALPROIC ACID SYRUP 250 MG/5 ML UDC PO SCH ×3 (08:12→20:12)
[2020-07-15] MEDS: CLOBAZAM 10 MG PO SCH ×2 (08:12→20:12)
[2020-07-15] MEDS: LEVETIRACETAM INJECTION 1,500 MG in NS (IVPB) 100 ML IV SCH ×2 (08:12→20:09)
--- NOTE | 2020-07-15 09:15 | NUR ---
CONTACTED PT FAMILY AND UPDATED FAMILY ON CURRENT PT STATUS. OBTAINED CONSENT FOR THE PEG TUBE FROM THE FATHER(DPOA).
--- NOTE | 2020-07-15 09:23 | Physical Therapy Progress Note ---
Therapy Progress Note PROM bilateral extremities in supine. JASMIN COPELAND PT Jul 15, 2020 09:22
--- NOTE | 2020-07-15 12:49 | Progress Note-Pre Operative ---
Pre-Operative Progress Note H&P Reviewed The H&P was reviewed, patient examined and no changes noted. 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
--- NOTE | 2020-07-15 12:49 | Conscious Sedation/ASA ---
Conscious Sedation Pre-Proced Time 12:00 ASA Score 4 For ASA 3 and 4: Consider anesthesia and medical clearance. Also, for patients with a history of failed moderate sedation consider anesthesia. Airway Lungs Heart ASA score ASA 1: a normal healthy patient ASA 2: a patient with a mild systemic disease (mid diabetes, controlled hypertension, obesity ASA 3: a patient with a severe systemic disease that limits activity (angina, COPD, prior Myocardial infarction) ASA 4: a patient with an incapacitating disease that is a constant threat to life (CHF, renal failure) ASA 5: a moribund patient not expected to survive 24 hrs. (ruptured aneurysm) ASA 6: a declared brain- patient whose organs are being harvested. For emergent operations, add the letter E after the classification Mallampati Classification Grade 2 Sedation Plan Analgesia, Amnesia, Plan communicated to team members, Discussed options with patient/fam, Discussed risks with patient/fam The patient is an appropriate candidate to undergo the planned procedure, sedation, and anesthesia. The patient immediately re-assessed prior to indication. DUC VEGA MD Jul 15, 2020 12:49
[2020-07-15] MEDS ORDERED: MIDAZOLAM 5 MG/5 ML (VERSED) VIAL ONE (13:08)
--- NOTE | 2020-07-15 13:35 | Progress Note-Post Operative ---
Post-Operative Progess Note Surgeon (s)/Liability Claims Manager (s) Surgeon DUC VEGA MD Liability Claims Manager: none Pre-Operative Diagnosis covid 19 ARDS trach dependent Post-Operative Diagnosis same Procedure & Operative Findings Date of Procedure 07/15/20 Procedure Performed/Findings PEG Anesthesia Type get Estimated Blood Loss Estimated blood loss (mL): minimal Specimens/Packing Specimens Removed none DUC VEGA MD Jul 15, 2020 13:35
--- NOTE | 2020-07-15 13:35 | NUR ---
Note pt currently receiving TF of Pulmocare via 60ml bolus feeds q4h, with 30ml free water flushes before/after each bolus. Recommend continue to increase TF by 30ml q8h as tolerated, toward goal of 190ml bolus feeds q4h. Will continue to follow and reassess as pt needs, intake, and status change. Nohelia Newton, MS RD LD [phone] cell
--- NOTE | 2020-07-15 14:01 | NUR ---
CM/SS follow up. CM/SS received noticed from Physician and Nurse that the patient could go to [facility] today after a peg tube was being placed. However, [facility] reports that they do not currently have any available vents. CM/SS faxed updated clinical to facility. CM/SS will continue to follow.
[2020-07-15] MEDS: ENOXAPARIN 40 MG/0.4 ML (LOVENOX) SYR SQ SCH (16:01)
[2020-07-15] MEDS ORDERED: LACTATED RINGERS 1,000 ML IV ONE (16:30)
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
[2020-07-16] VITALS (66 sets, daily range): BP systolic 85–123; BP diastolic 60–91
[2020-07-16] MEDS ORDERED: LACTATED RINGERS 1,000 ML IV ONE (01:15)
[2020-07-16 02:46] LABS: BASOPHILS % (AUTO) 0 % (0-10); EOSINOPHILS % (AUTO) 0 % (0-10); HEMATOCRIT 35 % (40-54); HEMOGLOBIN 11.9 g/dL (13.3-17.7); LYMPHOCYTES % (AUTO) 9 % (12-44); MEAN CORPUSCULAR HEMOGLOBIN 32 pg (25-34); MEAN CORPUSCULAR HGB CONC 34 g/dL (32-36); MEAN CORPUSCULAR VOLUME 94 fL (80-99); MEAN PLATELET VOLUME 8.7 fL (9.0-12.2); MONOCYTES % (AUTO) 9 % (0-12); NEUTROPHILS # (AUTO) 8.8 10^3/uL (1.8-7.8); NEUTROPHILS % (AUTO) 79 % (42-75); PLATELET COUNT 135 10^3/uL (130-400); WHITE BLOOD COUNT 11.2 10^3/uL (4.3-11.0)
[2020-07-16] MEDS: RT-ALBUTEROL INHALER HFA (VENTOLIN HFA) 18 GM IH SCH ×5 (02:52→18:26)
[2020-07-16 02:55] LABS: ABG BASE EXCESS 0.4 MMOL/L (-2.5-2.5); ABG OXYGEN SATURATION 97 % (94-100); ABG PCO2 34 MMHG (35-45); ABG PH 7.46 (7.37-7.43); ABG PO2 78 MMHG (79-93); ABG TCO2 25.1 MMOL/L (21.0-31.0)
[2020-07-16 02:56] LABS: ALLENS TEST ART LINE; INSPIRED O2 35%; PATIENT TEMP 36.1; VENTILATOR YES
[2020-07-16 03:03] LABS: CHLORIDE 107 MMOL/L (98-107); POTASSIUM 3.8 MMOL/L (3.6-5.0); SODIUM 137 MMOL/L (135-145)
[2020-07-16 03:05] LABS: GLUCOSE 115 MG/DL (70-105); TRIGLYCERIDES 164 MG/DL (<150)
[2020-07-16 03:07] LABS: CARBON DIOXIDE 22 MMOL/L (21-32)
[2020-07-16 03:09] LABS: CREATININE SERUM 0.65 MG/DL (0.60-1.30); GFR ESTIMATED > 60; PHOSPHORUS 2.5 MG/DL (2.3-4.7)
[2020-07-16 03:10] LABS: BUN/CREATININE RATIO 26
[2020-07-16 03:12] LABS: MAGNESIUM 1.8 MG/DL (1.6-2.4)
[2020-07-16] MEDS: KCL 20 MEQ TAB (K-DUR) PO SCH (03:49)
[2020-07-16] MEDS: MAGNESIUM 1 GM/100 ML IVPB 100 ML IV SCH (03:49)
[2020-07-16] MEDS: POTASSIUM CL 10MEQ/50ML IVPB 50 ML IV SCH (03:49)
[2020-07-16] MEDS: LACTATED RINGERS 1,000 ML IV SCH ×3 (04:32→22:00)
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
[2020-07-16] MEDS: NOREPINEPHRINE 4 MG/250 ML 250 ML IV SCH ×3 (05:50→23:19)
--- NOTE | 2020-07-16 05:55 | Diagnostic Imaging Report ---
EXAMINATION: Portable erect AP chest at 2:30 AM INDICATION: Check tube placement, respiratory distress This exam is less than optimal as the patient is rotated. The tracheostomy tube overlying the trachea seen on the prior exam of 07/15/2020 is again evident and seem similar in position. The tip of the tube may have been slightly retracted as it does seem somewhat more cephalad to the xiomy than on the prior exam. The overall appearance of the chest itself has not changed significantly otherwise. Both lung bases remain obscured by atelectasis/pneumonia and fluid, particularly the left lung. The heart is stable in size. The left-sided battery pack noted previously is again evident. IMPRESSION: 1. The tracheostomy tube may have been slightly retracted in the interval since the prior exam. The tip continues to overlie the tracheal air shadow and seems to be in good position. 2. The overall appearance of the chest has not changed significantly otherwise. Dictated by: Dictated on workstation # [id number]
[2020-07-16] MEDS: LEVOTHYROXINE 50 MCG (LEVOTHROID) TAB PO SCH (07:11)
[2020-07-16] MEDS: NS IV 500 ML 500 ML IV SCH (07:47)
[2020-07-16] MEDS: HYDROCORTISONE 100 MG/2 ML (Solu-CORTEF) VIAL IV SCH ×3 (08:06→23:31)
[2020-07-16] MEDS: VALPROIC ACID SYRUP 250 MG/5 ML UDC PO SCH ×3 (08:06→19:46)
[2020-07-16] MEDS: RIFAXIMIN 550 MG TABLET (XIFAXAN) PO SCH ×2 (08:07→19:45)
[2020-07-16] MEDS: NS IV SCH ×6 (08:08→19:58)
[2020-07-16] MEDS: MICRON FILTER IV SCH ×6 (08:08→19:58)
[2020-07-16] MEDS: PHENYTOIN IV SCH ×6 (08:08→19:58)
[2020-07-16] MEDS: LEVETIRACETAM INJECTION 1,000 MG in NS (IVPB) 100 ML IV SCH ×2 (08:09→19:46)
[2020-07-16] MEDS: FAMOTIDINE 20 MG (PEPCID) TABLET GT SCH ×2 (08:11→19:45)
[2020-07-16] MEDS: CLOBAZAM 10 MG PO SCH ×2 (08:13→19:46)
[2020-07-16] MEDS: aCETylcysteine 20% (MUCOMYST) 30ML SOLN VIAL INH SCH ×3 (09:25→22:33)
[2020-07-16 10:46] LABS: ABG BASE EXCESS 0.3 MMOL/L (-2.5-2.5); ABG OXYGEN SATURATION 93 % (94-100); ABG PCO2 37 MMHG (35-45); ABG PH 7.43 (7.37-7.43); ABG PO2 68 MMHG (79-93); ABG TCO2 25.1 MMOL/L (21.0-31.0)
[2020-07-16 10:47] LABS: ALLENS TEST YES-POS; INSPIRED O2 35%; VENTILATOR YES
[2020-07-16] MEDS: ENOXAPARIN 40 MG/0.4 ML (LOVENOX) SYR SQ SCH (15:56)
[2020-07-17] VITALS (65 sets, daily range): BP systolic 91–163; BP diastolic 59–109
[2020-07-17] MEDS: RT-ALBUTEROL INHALER HFA (VENTOLIN HFA) 18 GM IH SCH ×6 (02:43→21:13)
[2020-07-17] MEDS: aCETylcysteine 20% (MUCOMYST) 30ML SOLN VIAL INH SCH ×4 (02:43→18:35)
[2020-07-17 02:49] LABS: BASOPHILS % (AUTO) 0 % (0-10); EOSINOPHILS % (AUTO) 0 % (0-10); HEMATOCRIT 34 % (40-54); HEMOGLOBIN 11.1 g/dL (13.3-17.7); LYMPHOCYTES # (AUTO) 1.4 10^3/uL (1.0-4.0); LYMPHOCYTES % (AUTO) 14 % (12-44); MEAN CORPUSCULAR HEMOGLOBIN 32 pg (25-34); MEAN CORPUSCULAR HGB CONC 33 g/dL (32-36); MEAN CORPUSCULAR VOLUME 95 fL (80-99); MONOCYTES # (AUTO) 0.9 10^3/uL (0.0-1.0); MONOCYTES % (AUTO) 9 % (0-12); NEUTROPHILS # (AUTO) 7.1 10^3/uL (1.8-7.8); NEUTROPHILS % (AUTO) 73 % (42-75); PLATELET COUNT 136 10^3/uL (130-400); WHITE BLOOD COUNT 9.8 10^3/uL (4.3-11.0)
[2020-07-17 02:55] LABS: CHLORIDE 107 MMOL/L (98-107); POTASSIUM 3.9 MMOL/L (3.6-5.0); SODIUM 138 MMOL/L (135-145)
[2020-07-17 02:56] LABS: CALCIUM 7.8 MG/DL (8.5-10.1)
[2020-07-17 02:57] LABS: GLUCOSE 104 MG/DL (70-105)
[2020-07-17 02:58] LABS: CARBON DIOXIDE 24 MMOL/L (21-32)
[2020-07-17 03:00] LABS: PHOSPHORUS 2.7 MG/DL (2.3-4.7)
[2020-07-17 03:01] LABS: CREATININE SERUM 0.65 MG/DL (0.60-1.30); GFR ESTIMATED > 60
[2020-07-17 03:02] LABS: BUN/CREATININE RATIO 23
[2020-07-17 03:03] LABS: MAGNESIUM 1.8 MG/DL (1.6-2.4)
[2020-07-17 03:04] LABS: ABG BASE EXCESS 2.1 MMOL/L (-2.5-2.5); ABG OXYGEN SATURATION 94 % (94-100); ABG PCO2 36 MMHG (35-45); ABG PH 7.46 (7.37-7.43); ABG PO2 70 MMHG (79-93); ABG TCO2 26.9 MMOL/L (21.0-31.0)
[2020-07-17 03:05] LABS: ALLENS TEST POSITIVE; INSPIRED O2 35
[2020-07-17 03:06] LABS: PATIENT TEMP 36.4; VENTILATOR YES
[2020-07-17] MEDS: KCL 20 MEQ TAB (K-DUR) PO SCH (03:25)
[2020-07-17] MEDS: POTASSIUM CL 10MEQ/50ML IVPB 50 ML IV SCH (03:25)
[2020-07-17] MEDS: MAGNESIUM 1 GM/100 ML IVPB 100 ML IV SCH (03:25)
[2020-07-17] MEDS: NOREPINEPHRINE 4 MG/250 ML 250 ML IV SCH ×3 (04:46→20:33)
[2020-07-17 05:47] LABS: ALBUMIN 2.2 GM/DL (3.2-4.5)
[2020-07-17 05:48] LABS: CHLORIDE 106 MMOL/L (98-107); POTASSIUM 3.9 MMOL/L (3.6-5.0); SODIUM 138 MMOL/L (135-145)
[2020-07-17 05:49] LABS: CALCIUM 7.8 MG/DL (8.5-10.1)
[2020-07-17 05:50] LABS: GLUCOSE 104 MG/DL (70-105); TOTAL PROTEIN 4.7 GM/DL (6.4-8.2)
[2020-07-17 05:51] LABS: CARBON DIOXIDE 23 MMOL/L (21-32)
[2020-07-17 05:52] LABS: BILIRUBIN,TOTAL 0.2 MG/DL (0.1-1.0)
[2020-07-17 05:53] LABS: ALKALINE PHOSPHATASE 72 U/L (40-136)
[2020-07-17 05:54] LABS: CREATININE SERUM 0.65 MG/DL (0.60-1.30); GFR ESTIMATED > 60
[2020-07-17 05:55] LABS: BUN/CREATININE RATIO 23
[2020-07-17] MEDS: LEVOTHYROXINE 50 MCG (LEVOTHROID) TAB PO SCH (05:55)
[2020-07-17] MEDS: HYDROCORTISONE 100 MG/2 ML (Solu-CORTEF) VIAL IV SCH ×3 (05:55→21:23)
[2020-07-17 05:57] LABS: ALANINE AMINOTRANSFERASE 11 U/L (0-55)
--- NOTE | 2020-07-17 07:38 | Diagnostic Imaging Report ---
EXAM: Portable erect AP chest at 2:36 AM INDICATION: Hypoxia FINDINGS: The cardiomegaly and the bibasilar pneumonia/atelectasis and bilateral pleural effusions seen on the prior exam of 07/16/2020 are again evident and not significantly changed. The lung apices remain generally clear although the right apex is obscured by the patient's chin. The mediastinum is not widened. The supportive tubes and lines seen previously appear similar in position. The osseous structures are intact. IMPRESSION: Stable chest. There has been no adverse change since the prior exam. Dictated by: Dictated on workstation # [id number]
[2020-07-17] MEDS ORDERED: CIPROFLOXACIN 0.3% (CILOXAN) 2.5 ML BTL OP SCH (08:30)
[2020-07-17] MEDS: MICRON FILTER IV SCH ×6 (09:08→20:35)
[2020-07-17] MEDS: PHENYTOIN IV SCH ×6 (09:08→20:35)
[2020-07-17] MEDS: NS IV SCH ×6 (09:08→20:35)
[2020-07-17] MEDS: LEVETIRACETAM INJECTION 1,000 MG in NS (IVPB) 100 ML IV SCH ×2 (09:15→20:33)
[2020-07-17] MEDS: VALPROIC ACID SYRUP 250 MG/5 ML UDC PO SCH ×3 (09:18→20:34)
[2020-07-17] MEDS: FAMOTIDINE 20 MG (PEPCID) TABLET GT SCH ×2 (09:19→20:34)
[2020-07-17] MEDS: CLOBAZAM 10 MG PO SCH ×2 (09:19→20:33)
[2020-07-17] MEDS: RIFAXIMIN 550 MG TABLET (XIFAXAN) PO SCH ×2 (09:19→20:34)
[2020-07-17] MEDS: OFLOXACIN 0.3% OPHTH SOLN 5 ML OP SCH ×3 (11:33→15:00)
--- NOTE | 2020-07-17 17:05 | NUR ---
Spoke with Darryl in pharmacy who stated that he spoke with Andres about pt's high phenobarbital level. It was expressed to me that, since Dr. Coleman had changed the scheduled dose from TID to BID, that the pt should come down on his own and to continue to give medication on the BID schedule.
[2020-07-17] MEDS: TOBRA/DEXAMETH (TOBRADEX) OPHTH SUSP 2.5 ML BTL OU SCH ×2 (17:09→20:35)
[2020-07-17] MEDS: ENOXAPARIN 40 MG/0.4 ML (LOVENOX) SYR SQ SCH (17:09)
[2020-07-18] VITALS (24 sets, daily range): BP systolic 84–152; BP diastolic 56–103
[2020-07-18] MEDS: RT-ALBUTEROL INHALER HFA (VENTOLIN HFA) 18 GM IH SCH ×4 (01:30→14:44)
[2020-07-18 03:06] LABS: ABG BASE EXCESS 1.4 MMOL/L (-2.5-2.5); ABG OXYGEN SATURATION 97 % (94-100); ABG PCO2 36 MMHG (35-45); ABG PH 7.45 (7.37-7.43); ABG PO2 83 MMHG (79-93); ABG TCO2 26.2 MMOL/L (21.0-31.0)
[2020-07-18 03:07] LABS: ALLENS TEST POSITIVE; BASOPHILS % (AUTO) 0 % (0-10); EOSINOPHILS % (AUTO) 0 % (0-10); HEMATOCRIT 33 % (40-54); HEMOGLOBIN 11.2 g/dL (13.3-17.7); INSPIRED O2 30; LYMPHOCYTES # (AUTO) 1.6 10^3/uL (1.0-4.0); LYMPHOCYTES % (AUTO) 17 % (12-44); MEAN CORPUSCULAR HEMOGLOBIN 33 pg (25-34); MEAN CORPUSCULAR HGB CONC 34 g/dL (32-36); MEAN CORPUSCULAR VOLUME 96 fL (80-99); MONOCYTES # (AUTO) 0.8 10^3/uL (0.0-1.0); MONOCYTES % (AUTO) 8 % (0-12); NEUTROPHILS # (AUTO) 6.7 10^3/uL (1.8-7.8); NEUTROPHILS % (AUTO) 71 % (42-75); PATIENT TEMP 36.6; PLATELET COUNT 137 10^3/uL (130-400); VENTILATOR YES; WHITE BLOOD COUNT 9.4 10^3/uL (4.3-11.0)
[2020-07-18 03:18] LABS: CHLORIDE 108 MMOL/L (98-107); POTASSIUM 3.8 MMOL/L (3.6-5.0); SODIUM 138 MMOL/L (135-145)
[2020-07-18 03:19] LABS: CALCIUM 7.4 MG/DL (8.5-10.1)
[2020-07-18 03:20] LABS: GLUCOSE 125 MG/DL (70-105)
[2020-07-18 03:21] LABS: CARBON DIOXIDE 22 MMOL/L (21-32)
[2020-07-18 03:24] LABS: CREATININE SERUM 0.65 MG/DL (0.60-1.30); GFR ESTIMATED > 60; PHOSPHORUS 2.4 MG/DL (2.3-4.7)
[2020-07-18 03:25] LABS: BUN/CREATININE RATIO 31
[2020-07-18 03:26] LABS: MAGNESIUM 1.8 MG/DL (1.6-2.4)
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
[2020-07-18] MEDS: LACTATED RINGERS 1,000 ML IV SCH (05:50)
[2020-07-18] MEDS: MAGNESIUM 1 GM/100 ML IVPB 100 ML IV SCH (05:50)
[2020-07-18] MEDS: KCL 20 MEQ TAB (K-DUR) PO SCH (05:50)
[2020-07-18] MEDS: POTASSIUM CL 10MEQ/50ML IVPB 50 ML IV SCH (05:51)
[2020-07-18] MEDS: HYDROCORTISONE 100 MG/2 ML (Solu-CORTEF) VIAL IV SCH ×2 (05:52→13:30)
[2020-07-18] MEDS: LEVOTHYROXINE 50 MCG (LEVOTHROID) TAB PO SCH (05:52)
[2020-07-18] MEDS: aCETylcysteine 20% (MUCOMYST) 30ML SOLN VIAL INH SCH (06:30)
[2020-07-18] MEDS: TOBRA/DEXAMETH (TOBRADEX) OPHTH SUSP 2.5 ML BTL OU SCH ×3 (07:51→17:32)
[2020-07-18] MEDS: PHENYTOIN IV SCH ×3 (07:52)
[2020-07-18] MEDS: VALPROIC ACID SYRUP 250 MG/5 ML UDC PO SCH ×2 (07:52→13:30)
[2020-07-18] MEDS: RIFAXIMIN 550 MG TABLET (XIFAXAN) PO SCH ×2 (07:52→17:33)
[2020-07-18] MEDS: NS IV SCH ×3 (07:52)
[2020-07-18] MEDS: FAMOTIDINE 20 MG (PEPCID) TABLET GT SCH (07:52)
[2020-07-18] MEDS: MICRON FILTER IV SCH ×3 (07:52)
[2020-07-18] MEDS: LEVETIRACETAM INJECTION 1,000 MG in NS (IVPB) 100 ML IV SCH (07:52)
[2020-07-18] MEDS: CLOBAZAM 10 MG PO SCH (07:53)
--- NOTE | 2020-07-18 08:19 | Diagnostic Imaging Report ---
Indication: Tracheostomy. Time of exam: 2:24 AM Correlation is made with prior chest from one day earlier. Tracheostomy tube has tip just above the xiomy. There is a left sided line with tip overlying the SVC. Bilateral effusions with bibasilar atelectasis persists and shows no real change. Mid and upper lung fischer are clear. No pneumothorax is seen. IMPRESSION: Continued bilateral effusions and atelectasis, similar to examination one day earlier. Dictated by: Dictated on workstation # [id number]
--- NOTE | 2020-07-18 09:35 | Physical Therapy Progress Note ---
Therapy Progress Note Patient remains on mechanical ventilator. PT will continue to monitor patient status. JASMIN COPELAND PT Jul 18, 2020 09:35
[2020-07-18 12:02] LABS: ABG BASE EXCESS 2.1 MMOL/L (-2.5-2.5); ABG OXYGEN SATURATION 95 % (94-100); ABG PCO2 36 MMHG (35-45); ABG PH 7.46 (7.37-7.43); ABG PO2 66 MMHG (79-93); ABG TCO2 27.1 MMOL/L (21.0-31.0)
[2020-07-18 12:03] LABS: INSPIRED O2 30%; PATIENT TEMP 35.7; VENTILATOR NO
--- NOTE | 2020-07-18 15:50 | NUR ---
THIS RN CALLED DR. ROSALES AND NOTIFIED HIM OF PT'S BP OF 86/58. THIS RN INSTRUCTED TO RESTART PT ON SOLU-CORTEF 100MG Q8HR AND TO GIVE 1L LR BOLUS AND TO NOTIFY DR. ROSALES OF BP AFTER BOLUS OF LR IS GIVEN. ORDERS PLACED BY THIS RN, SEE ORDER HX.
[2020-07-18] MEDS ORDERED: LACTATED RINGERS 1,000 ML IV ONE (16:00)
[2020-07-18] MEDS: ENOXAPARIN 40 MG/0.4 ML (LOVENOX) SYR SQ SCH (16:05)
--- NOTE | 2020-07-18 16:45 | NUR ---
Note pt currently receiving TF via 150ml bolus feeds q4h with 30ml free water flushes before/after each bolus. Pt is tolerating TF well. Continue to increase TF by 30ml q8h as tolerated toward goal of 190ml bolus feeds q4h. Will continue to follow and reassess as pt needs, intake, and status change. Nohelia Newton, MS RD LD
--- NOTE | 2020-07-18 16:53 | NUR ---
REPORT CALLED TO LOU BOWERS AT [facility].
[2020-07-18] MEDS ORDERED: HYDROCORTISONE 100 MG/2 ML (Solu-CORTEF) VIAL IV SCH (22:00)
== END 2020-07-18 18:10 | DRG 4 ==
LOC: EDUNIT# 17:50 → ER 17:52 → 4TH 19:04 → ICU 07-03 18:05 → 4TH 07-05 18:20 → ICU 07-06 08:50 → CSD 07-11 15:33 → ICU 07-12 13:11
PROVIDERS: ADMIT Internal Medicine; ATTEND Internal Medicine
PROC: XW033E5 Introduction of Remdesivir Anti-infective into Peripheral Vein, Percutaneous Approach, New Technology Group 5 (ICD-10-PCS; principal; 2020-06-28)
PROC: XW13325 Transfusion of Convalescent Plasma (Nonautologous) into Peripheral Vein, Percutaneous Approach, New Technology Group 5 (ICD-10-PCS; 2020-06-28)
PROC: 0B110F4 Bypass Trachea to Cutaneous with Tracheostomy Device, Open Approach (ICD-10-PCS; 2020-07-06)
PROC: 5A1955Z Respiratory Ventilation, Greater than 96 Consecutive Hours (ICD-10-PCS; 2020-07-06)
PROC: 0BH17EZ Insertion of Endotracheal Airway into Trachea, Via Natural or Artificial Opening (ICD-10-PCS; 2020-07-06)
PROC: 0W9930Z Drainage of Right Pleural Cavity with Drainage Device, Percutaneous Approach (ICD-10-PCS; 2020-07-06)
PROC: 0DH63UZ Insertion of Feeding Device into Stomach, Percutaneous Approach (ICD-10-PCS; 2020-07-15)
DX: U07.1 COVID-19 (principal); J12.89 Other viral pneumonia; J80 Acute respiratory distress syndrome; G92 Toxic encephalopathy; G40.801 Other epilepsy, not intractable, with status epilepticus; J95.03 Malfunction of tracheostomy stoma; J93.9 Pneumothorax, unspecified; F79 Unspecified intellectual disabilities; G83.9 Paralytic syndrome, unspecified; E03.9 Hypothyroidism, unspecified; K21.00 Gastro-esophageal reflux disease with esophagitis, without bleeding; K44.9 Diaphragmatic hernia without obstruction or gangrene; K29.70 Gastritis, unspecified, without bleeding; K29.80 Duodenitis without bleeding; Z87.820 Personal history of traumatic brain injury; Z93.2 Ileostomy status; Z87.01 Personal history of pneumonia (recurrent)
CPT/HCPCS: 36415; 36600; 70450; 70496; 70498; 71045; 71275; 80048; 80053; 80164; 80184; 80185; 81000; 82140; 82805; 82945; 82962; 83605; 83615; 83735; 83880; 83986; 84100; 84145; 84157; 84439; 84443; 84478; 85007; 85025; 85027; 85379; 85610; 85730; 86141; 86900; 86901; 87040; 87070; 87081; 87088; 87205; 87635; 87804; 89051; 94002; 94003; 94640; 94664; 94760; 94799; 96361; 96374; 96375